=== PATIENT | female | born 1935 | race Caucasian/White ===

== ENCOUNTER 2020-07-29 19:25 | Inpatient (IN) | payer MEDICARE, OTHER ==
--- NOTE | 2020-07-29 20:53 | EDM.PDOC ---
ED HPI GENERAL MEDICAL PROBLEM - General Chief Complaint: Respiratory Problem Stated Complaint: [facility] Time Seen by Provider: 07/29/20 19:56 Source of Information: Reports: Patient, EMS History Limitations: Reports: No Limitations - History of Present Illness INITIAL COMMENTS - FREE TEXT/NARRATIVE: This is an 85-year-old female. She spent a large portion of her day writing an ambulance from [place] back to a half-way and [place]. When she arrived she was noted to have a pulse ox at 62% on 4 L nasal cannula. She was diagnosed with Covid with some patchy infiltrates in her lungs back on July 16 and [place]. She apparently had a low O2 at that time as well and she was sent to [place] for admission. She has been there now 14 days and then returned today to the half-way. She says she is exhausted and tired from riding in the ambulance all day. Apparently the half-way place her on a nonrebreather at 4 L and there was no improvement of her oxygen sats. In the ambulance her pulse ox was up to 86% on 4 L. Mouth breather but I am not certain why nasal cannula. Apparently she on 15 July was in the ER because she fell and that is when they found that she was Covid positive. She went back to the half-way but then fell again and was brought back to the ER and then transferred to [place]. The patient states she has a history of COPD. At this time she does not appear to be in acute distress though she is breathing more rapidly the rate about 18. The patient denies any significant pain or discomfort. - Related Data Allergies Allergy/AdvReac Type Severity Reaction Status Date / Time morphine Allergy Severe Vomiting Verified 07/29/20 19:41 Home Meds: Home Meds rOPINIRole [Requip] 2 mg PO BID 08/15/19 [History] Acetaminophen 650 mg PO Q6H PRN 07/29/20 [History] Anoro Ellipta 1 puff INH DAILY 07/29/20 [History] Ascorbic Acid [C-1000] 1,000 mg PO BID 07/29/20 [History] Aspirin 81 mg PO DAILY 07/29/20 [History] Cholecalciferol (Vitamin D3) [Vitamin D3] 1,000 unit PO DAILY 07/29/20 [History] Digoxin 125 mcg PO DAILY 07/29/20 [History] Metoprolol Succinate [Toprol XL] 12.5 mg PO DAILY 07/29/20 [History] Nicotine [Nicotine Patch] 21 mg TD DAILY 07/29/20 [History] atorvaSTATin [Lipitor] 40 mg PO DAILY 07/29/20 [History] lisinopriL [Lisinopril] 10 mg PO DAILY 07/29/20 [History] Past Medical History - Past Health History Medical/Surgical History: Denies Medical/Surgical History HEENT History: Reports: Impaired Vision, Other (See Below) Other HEENT History: wears glasses Cardiovascular History: Reports: Hypertension, Other (See Below) Other Cardiovascular History: elevated heart rate Respiratory History: Reports: Bronchitis, Recurrent, COPD, SOB Gastrointestinal History: Reports: None Genitourinary History: Reports: None [employer]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: Musculoskeletal History: Reports: Osteoarthritis Neurological History: Reports: None Endocrine/Metabolic History: Reports: None Oncologic (Cancer) History: Reports: None Dermatologic History: Reports: None - Infectious Disease History Infectious Disease History: Reports: [id number] Enterobacteriaceae, Measles, Shingles - Past Surgical History HEENT Surgical History: Reports: None Cardiovascular Surgical History: Reports: None Respiratory Surgical History: Reports: None GI Surgical History: Reports: Cholecystectomy, Colonoscopy, Polypectomy Female Surgical History: Reports: Hysterectomy, Salpingo-Oophorectomy Endocrine Surgical History: Reports: None Musculoskeletal Surgical History: Reports: Hip Replacement, Knee Replacement Other Musculoskeletal Surgeries/Procedures:: bilateral hip replacement, left kne e replacement Social & Family History - Family History Family Medical History: No Pertinent Family History - Tobacco Use Tobacco Use Status *Q: Former Tobacco User Used Tobacco, but Quit: Yes Month/Year Tobacco Last Used: 3 yr - Caffeine Use Caffeine Use: Reports: Coffee, Soda Caffeine Use Comment: 3-4 cups a day - Recreational Drug Use Recreational Drug Use: No ED ROS GENERAL - Review of Systems Review Of Systems: See Below Constitutional: Reports: Fever, Chills, Weakness, Fatigue HEENT: Reports: No Symptoms Respiratory: Reports: Shortness of Breath. Denies: Wheezing, Cough Cardiovascular: Denies: Chest Pain Endocrine: Reports: No Symptoms GI/Abdominal: Reports: No Symptoms : Reports: No Symptoms Musculoskeletal: Reports: No Symptoms Skin: Reports: Bruising, Other (Patient has bruising on her arms from her admission but then she has a very large dark bruising and hematoma on her right flank where she fell) Neurological: Reports: Difficulty Walking, Weakness Psychiatric: Reports: Other (Confusion but she knows she is in the ER.) Hematologic/Lymphatic: Reports: No Symptoms ED EXAM, GENERAL - Physical Exam Exam: See Below General Appearance: Alert, Thin, Other (She is not in distress but she is breathing rapidly) Eye Exam: Bilateral Eye: Normal Inspection Ears: Normal External Exam, Normal Canal, Normal TMs Nose: Normal Inspection Throat/Mouth: Normal Voice, No Airway Compromise, Other (Patient is able to verbalize and she is breathing well. She does have dry mucous membranes noted) Head: Normocephalic Neck: Other (Emitted range of motion of her neck secondary to arthritis) Respiratory/Chest: Lungs Clear, Normal Breath Sounds, Respiratory Distress, Other (He does not really have any significant rhonchi wheezes or rales noted her lungs are essentially clear and she is moving air well) Cardiovascular: No Murmur, Irregularly Irregular GI/Abdominal: Soft, Non-Tender Back Exam: Decreased Range of Motion, Other (Of her back is atraumatic. But on the right flank she is got a large hematoma and very dark bruising from where she fell) Extremities: Other (Is very thin and she moves all 4 extremities okay. She does not have significant edema in her lower extremities though it is trace her skin is very poor turgor) Neurological: Alert, Other (The patient know she is in the ER but she is not oriented much more than that) Psychiatric: Depressed Mood, Flat Affect Skin Exam: Warm, Dry #1 Interpretation EKG Date: 07/29/20 Time: 19:50 EKG Interpretation Comments: EKG shows an atrial fibrillation with a rate of 86. She has no acute ST or T wave changes and she has a no ischemia noted. Course - Vital Signs Last Recorded V/S: Last Vital Signs Temp 97.8 F 07/29/20 19:46 Pulse 89 07/29/20 19:46 Resp 30 H 07/29/20 19:46 BP 100/67 07/29/20 19:46 Pulse Ox 87 L 07/29/20 19:46 - Orders/Labs/Meds Orders: Active Orders 24 hr Category Date Time Status EKG 12 Lead [EKG Documentation Completion] [RC] ROUTINE Care 07/29/20 19:48 Active CXR [Chest 1V Frontal] [CR] Stat Exams 07/29/20 21:08 Taken Sodium Chloride 0.9% [Normal Saline] 1,000 ml Med 07/29/20 21:15 Active IV ASDIRECTED Medication Orders Sodium Chloride (Normal Saline) 1,000 mls @ 500 mls/hr IV ASDIRECTED EMELINA Last Admin: 07/29/20 21:20 Dose: 500 mls/hr Documented by: JEMAL Labs: Laboratory Tests 07/29/20 07/29/20 07/29/20 Range/Units 19:40 19:40 19:40 WBC 6.95 (3.98-10.04) K/mm3 RBC 2.78 L (3.98-5.22) M/mm3 Hgb 8.0 L (11.2-15.7) gm/dl Hct 26.6 L (34.1-44.9) % MCV 95.7 H (79.4-94.8) fl MCH 28.8 (25.6-32.2) pg MCHC 30.1 L (32.2-35.5) g/dl RDW Std Deviation 49.8 H (36.4-46.3) fL Plt Count 131 L (182-369) K/mm3 MPV 12.4 H (9.4-12.3) fl Neut % (Auto) 91.0 H (34.0-71.1) % Lymph % (Auto) 4.9 L (19.3-51.7) % [place] % (Auto) 3.9 L (4.7-12.5) % Eos % (Auto) 0.1 L (0.7-5.8) Baso % (Auto) 0.0 L (0.1-1.2) % Neut # (Auto) 6.32 H (1.56-6.13) K/mm3 Lymph # (Auto) 0.34 L (1.18-3.74) K/mm3 [place] # (Auto) 0.27 (0.24-0.36) K/mm3 Eos # (Auto) 0.01 L (0.04-0.36) K/mm3 Baso # (Auto) 0.00 L (0.01-0.08) K/mm3 Manual Slide Review Abnormal smear Puncture Site ABG pH (7.35-7.45) ABG pCO2 (35.0-45.0) mmHg ABG pO2 (80.0-100.0) mmHg ABG HCO3 (22.0-26.0) meq/L ABG O2 Saturation (96.0-97.0) % ABG Base Excess (-2-2.0) Aidan Test O2 Delivery Device Oxygen Flow Rate Sodium 139 (136-145) mEq/L Potassium 4.1 (3.5-5.1) mEq/L Chloride 105 (98-107) mEq/L Carbon Dioxide 27 (21-32) mEq/L Anion Gap 11.1 (5-15) BUN 23 H (7-18) mg/dL Creatinine 0.8 (0.55-1.02) mg/dL Est Cr Clr Drug Dosing 49.09 mL/min Estimated GFR (MDRD) > 60 (>60) mL/min BUN/Creatinine Ratio 28.8 H (14-18) Glucose 102 (83-115) mg/dL Lactic Acid (0.4-2.0) mmol/L Calcium 7.9 L (8.5-10.1) mg/dL Ferritin 682 H (8-252) ng/ml Total Bilirubin 1.4 H (0.2-1.0) mg/dL AST 54 H (15-37) U/L ALT 45 (14-59) U/L Alkaline Phosphatase 54 (46-116) U/L Lactate Dehydrogenase 303 H (81-234) U/L Troponin I 0.025 (0.00-0.056) ng/mL C-Reactive Protein 28.8 H* (<1.0) mg/dL Total Protein 5.0 L (6.4-8.2) g/dl Albumin 1.7 L (3.4-5.0) g/dl Globulin 3.3 gm/dL Albumin/Globulin Ratio 0.5 L (1-2) 07/29/20 07/29/20 Range/Units 19:40 21:25 WBC (3.98-10.04) K/mm3 RBC (3.98-5.22) M/mm3 Hgb (11.2-15.7) gm/dl Hct (34.1-44.9) % MCV (79.4-94.8) fl MCH (25.6-32.2) pg MCHC (32.2-35.5) g/dl RDW Std Deviation (36.4-46.3) fL Plt Count (182-369) K/mm3 MPV (9.4-12.3) fl Neut % (Auto) (34.0-71.1) % Lymph % (Auto) (19.3-51.7) % [place] % (Auto) (4.7-12.5) % Eos % (Auto) (0.7-5.8) Baso % (Auto) (0.1-1.2) % Neut # (Auto) (1.56-6.13) K/mm3 Lymph # (Auto) (1.18-3.74) K/mm3 [place] # (Auto) (0.24-0.36) K/mm3 Eos # (Auto) (0.04-0.36) K/mm3 Baso # (Auto) (0.01-0.08) K/mm3 Manual Slide Review Puncture Site Lt radial ABG pH 7.44 (7.35-7.45) ABG pCO2 39.7 (35.0-45.0) mmHg ABG pO2 53.0 L (80.0-100.0) mmHg ABG HCO3 26.7 H (22.0-26.0) meq/L ABG O2 Saturation 83.9 L (96.0-97.0) % ABG Base Excess 2.9 H (-2-2.0) Aidan Test Positive O2 Delivery Device Simple mask Oxygen Flow Rate 8.0 Sodium (136-145) mEq/L Potassium (3.5-5.1) mEq/L Chloride (98-107) mEq/L Carbon Dioxide (21-32) mEq/L Anion Gap (5-15) BUN (7-18) mg/dL Creatinine (0.55-1.02) mg/dL Est Cr Clr Drug Dosing mL/min Estimated GFR (MDRD) (>60) mL/min BUN/Creatinine Ratio (14-18) Glucose (83-115) mg/dL Lactic Acid 0.9 (0.4-2.0) mmol/L Calcium (8.5-10.1) mg/dL Ferritin (8-252) ng/ml Total Bilirubin (0.2-1.0) mg/dL AST (15-37) U/L ALT (14-59) U/L Alkaline Phosphatase (46-116) U/L Lactate Dehydrogenase (81-234) U/L Troponin I (0.00-0.056) ng/mL C-Reactive Protein (<1.0) mg/dL Total Protein (6.4-8.2) g/dl Albumin (3.4-5.0) g/dl Globulin gm/dL Albumin/Globulin Ratio (1-2) Meds: Medications Generic Name Dose Route Start Last Admin Trade Name Freq PRN Reason Stop Dose Admin Sodium Chloride 1,000 mls @ 500 mls/hr 07/29/20 21:15 07/29/20 21:20 Normal Saline IV 500 mls/hr ASDIRECTED EMELINA Administration - Radiology Interpretation Free Text/Narrative:: Chest x-ray shows cardiomegaly with vascular congestion and bilateral pleural effusions suggesting congestive heart failure. Bilateral alveolar opacities left greater than right could be pulmonary edema versus pneumonia. - Re-Assessments/Exams Free Text/Narrative Re-Assessment/Exam: 07/29/20 21:38 Switch the patient to a mask at 4 L per nasal cannula but she cannot tolerate that over her nose and mouth so she keeps taking it off and her pulse ox keeps dropping into the low 60s. Amount of put her back on 4 L nasal cannula. I did get a blood gas that showed a pH of 7.44 CO2 of 40 and O2 of 53. This was with a simple mask at 8 L/min. 07/29/20 21:41 Patient is a DNR/DNI 07/29/20 21:45 Her CBC shows a hemoglobin of 8.0 platelets of 131. She does not have a rather skewed differential with 91% segs. 07/29/20 22:08 Her C-reactive protein is 28.8 ferritin is 682 LDH is 303. Her troponin is normal her lactic acid is normal. I did speak to Dr. Clifton and he will admit the patient for further evaluation and treatment. 07/29/20 22:11 Spoke to the patient regarding the findings in her admission. She is okay to being admitted. Departure - Departure Time of Disposition: 22:09 Disposition: Admitted As Inpatient 65 Condition: Serious Clinical Impression: Real time reverse transcriptase PCR positive for COVID-19 virus, Pleural effusion, Cardiomegaly, Hypoxemia Congestive heart failure Qualifiers: Heart failure type: unspecified Heart failure chronicity: acute on chronic Qualified Code(s): I50.9 - Heart failure, unspecified - Discharge Information Sepsis Event Note (ED) - Evaluation Sepsis Screening Result: No Definite Risk - Focused Exam Vital Signs: Vital Signs Temp Pulse Resp BP Pulse Ox 07/29/20 19:46 97.8 F 89 30 H 100/67 87 L ED Communication - ED Communication Date/Time Date: 07/29/20 Time Called: 22:00 - Discussed Case With (1) Discussed Case With (1): Admitting Provider Person/s Notified (1): Luana Canseco III (He will admit for further evaluation and treatment) - My Orders Last 24 Hours: My Active Orders 07/29/20 19:48 EKG 12 Lead [EKG Documentation Completion] [RC] ROUTINE 07/29/20 21:08 CXR [Chest 1V Frontal] [CR] Stat 07/29/20 21:15 Sodium Chloride 0.9% [Normal Saline] 1,000 ml IV ASDIRECTED - Assessment/Plan Last 24 Hours: My Active Orders 07/29/20 19:48 EKG 12 Lead [EKG Documentation Completion] [RC] ROUTINE 07/29/20 21:08 CXR [Chest 1V Frontal] [CR] Stat 07/29/20 21:15 Sodium Chloride 0.9% [Normal Saline] 1,000 ml IV ASDIRECTED
[2020-07-29] MEDS ORDERED: Sodium Chloride 0.9% 1,000 ML IV SCH (21:15)
[2020-07-29] MEDS ORDERED: Acetaminophen 325 MG Tab PO PRN (23:41)
[2020-07-29] MEDS ORDERED: Ondansetron 4 MG/2 ML SDV IV PRN (23:41)
--- NOTE | 2020-07-29 23:57 | PCM.HP.2 ---
H&P History of Present Illness - General Date of Service: 07/29/20 Admit Problem/Dx: Admission Diagnosis/Problem Admission Diagnosis/Problem Hypoxia - History of Present Illness Initial Comments - Free Text/Narative: 85-year-old female who was discharged today from [facility] to a alf in [place] presents to the emergency department after arriving at [place] with a pulse ox of 62% on 4 L nasal cannula. Patient was initially diagnosed with Covid on July 15 in [place] and transferred to [facility] on the for treatment. Patient was also found to have elevated troponin and diagnosed with a non-STEMI. Patient was there for 14 days and on return to the alf she was found to be significantly hypoxemic. She was placed on a nonrebreather with no improvement and she was brought to the ER. On presentation to the emergency department patient did not appear to be in respiratory distress but had a increased respiratory rate of 18. Patient does have a history of atrial fibrillation, Hypertension, COPD, hypertension, hyperlipidemia. She is on digoxin. She does not appear to be on anticoagulation. She did have hemoglobin of 8.0 on presentation to the emergency department. - Related Data Allergies/Adverse Reactions: Allergies Allergy/AdvReac Type Severity Reaction Status Date / Time morphine Allergy Severe Vomiting Verified 07/29/20 19:41 Home Medications: Home Meds rOPINIRole [Requip] 2 mg PO BID 08/15/19 [History] Acetaminophen 650 mg PO Q6H PRN 07/29/20 [History] Anoro Ellipta 1 puff INH DAILY 07/29/20 [History] Ascorbic Acid [C-1000] 1,000 mg PO BID 07/29/20 [History] Aspirin 81 mg PO DAILY 07/29/20 [History] Cholecalciferol (Vitamin D3) [Vitamin D3] 1,000 unit PO DAILY 07/29/20 [History] Digoxin 125 mcg PO DAILY 07/29/20 [History] Metoprolol Succinate [Toprol XL] 12.5 mg PO DAILY 07/29/20 [History] Nicotine [Nicotine Patch] 21 mg TD DAILY 07/29/20 [History] atorvaSTATin [Lipitor] 40 mg PO DAILY 07/29/20 [History] lisinopriL [Lisinopril] 10 mg PO DAILY 07/29/20 [History] Nitroglycerin [Nitrostat] 0.4 mg SL ASDIRECTED PRN 07/30/20 [History] Past Medical History - Past Health History Medical/Surgical History: Denies Medical/Surgical History HEENT History: Reports: Impaired Vision, Other (See Below) Other HEENT History: wears glasses Cardiovascular History: Reports: Hypertension, Other (See Below) Other Cardiovascular History: elevated heart rate Respiratory History: Reports: Bronchitis, Recurrent, COPD, SOB Gastrointestinal History: Reports: None Genitourinary History: Reports: None HOSPICE MUSIC THERAPY History: Reports: Musculoskeletal History: Reports: Osteoarthritis Neurological History: Reports: None Endocrine/Metabolic History: Reports: None Oncologic (Cancer) History: Reports: None Dermatologic History: Reports: None - Infectious Disease History Infectious Disease History: Reports: ROI-[id number]-[id number] Enterobacteriaceae, Measles, Shingles - Past Surgical History HEENT Surgical History: Reports: None Cardiovascular Surgical History: Reports: None Respiratory Surgical History: Reports: None GI Surgical History: Reports: Cholecystectomy, Colonoscopy, Polypectomy Female Surgical History: Reports: Hysterectomy, Salpingo-Oophorectomy Endocrine Surgical History: Reports: None Musculoskeletal Surgical History: Reports: Hip Replacement, Knee Replacement Other Musculoskeletal Surgeries/Procedures:: bilateral hip replacement, left knee replacement Social & Family History - Family History Family Medical History: No Pertinent Family History - Tobacco Use Tobacco Use Status *Q: Former Tobacco User Used Tobacco, but Quit: Yes Month/Year Tobacco Last Used: 3 yr - Caffeine Use Caffeine Use: Reports: Coffee, Soda Caffeine Use Comment: 3-4 cups a day - Recreational Drug Use Recreational Drug Use: No H&P Review of Systems - Review of Systems: Review Of Systems: Comprehensive ROS is negative, except as noted in HPI. Exam - Exam Exam: See Below - Vital Signs Vital Signs: Last Vital Signs Temp 97.8 F 07/29/20 19:46 Pulse 89 07/29/20 19:46 Resp 30 H 07/29/20 19:46 BP 100/67 07/29/20 19:46 Pulse Ox 87 L 07/29/20 19:46 Weight: 150 lb - Exam Quality Assessment: Supplemental Oxygen (Simple mask) General: Alert, Mild Distress HEENT: Conjunctiva Clear, Mucosa Moist & [place] Neck: Supple, Trachea Midline, 2 Lungs: Rales (Throughout). No: Normal Respiratory Effort (Increased respiratory rate and effort) Cardiovascular: Regular Rate, Regular Rhythm GI/Abdominal Exam: Normal Bowel Sounds, Soft, Non-Tender, No Distention Extremities: Normal Inspection, Normal Capillary Refill, Pedal Edema (2+) Peripheral Pulses: 2+: Posterior Tibial (L), Posterior Tibial (R), Dorsalis Pedis (L), Dorsalis Pedis (R) Skin: Warm, Dry, Intact Neuro Extensive - Mental Status: Alert, Oriented x3, Normal Mood/Affect Psychiatric: Alert, Normal Affect, Normal Mood - Patient Data Lab Results Last 24 hrs: Laboratory Results - last 24 hr 07/29/20 07/29/20 07/29/20 Range/Units 19:40 19:40 19:40 WBC 6.95 (3.98-10.04) K/mm3 RBC 2.78 L (3.98-5.22) M/mm3 Hgb 8.0 L (11.2-15.7) gm/dl Hct 26.6 L (34.1-44.9) % MCV 95.7 H (79.4-94.8) fl MCH 28.8 (25.6-32.2) pg MCHC 30.1 L (32.2-35.5) g/dl RDW Std Deviation 49.8 H (36.4-46.3) fL Plt Count 131 L (182-369) K/mm3 MPV 12.4 H (9.4-12.3) fl Neut % (Auto) 91.0 H (34.0-71.1) % Lymph % (Auto) 4.9 L (19.3-51.7) % [place] % (Auto) 3.9 L (4.7-12.5) % Eos % (Auto) 0.1 L (0.7-5.8) Baso % (Auto) 0.0 L (0.1-1.2) % Neut # (Auto) 6.32 H (1.56-6.13) K/mm3 Lymph # (Auto) 0.34 L (1.18-3.74) K/mm3 [place] # (Auto) 0.27 (0.24-0.36) K/mm3 Eos # (Auto) 0.01 L (0.04-0.36) K/mm3 Baso # (Auto) 0.00 L (0.01-0.08) K/mm3 Manual Slide Review Abnormal smear Puncture Site ABG pH (7.35-7.45) ABG pCO2 (35.0-45.0) mmHg ABG pO2 (80.0-100.0) mmHg ABG HCO3 (22.0-26.0) meq/L ABG O2 Saturation (96.0-97.0) % ABG Base Excess (-2-2.0) Aidan Test O2 Delivery Device Oxygen Flow Rate Sodium 139 (136-145) mEq/L Potassium 4.1 (3.5-5.1) mEq/L Chloride 105 (98-107) mEq/L Carbon Dioxide 27 (21-32) mEq/L Anion Gap 11.1 (5-15) BUN 23 H (7-18) mg/dL Creatinine 0.8 (0.55-1.02) mg/dL Est Cr Clr Drug Dosing 49.09 mL/min Estimated GFR (MDRD) > 60 (>60) mL/min BUN/Creatinine Ratio 28.8 H (14-18) Glucose 102 (83-115) mg/dL Lactic Acid (0.4-2.0) mmol/L Calcium 7.9 L (8.5-10.1) mg/dL Ferritin 682 H (8-252) ng/ml Total Bilirubin 1.4 H (0.2-1.0) mg/dL AST 54 H (15-37) U/L ALT 45 (14-59) U/L Alkaline Phosphatase 54 (46-116) U/L Lactate Dehydrogenase 303 H (81-234) U/L Troponin I 0.025 (0.00-0.056) ng/mL C-Reactive Protein 28.8 H* (<1.0) mg/dL Total Protein 5.0 L (6.4-8.2) g/dl Albumin 1.7 L (3.4-5.0) g/dl Globulin 3.3 gm/dL Albumin/Globulin Ratio 0.5 L (1-2) 07/29/20 07/29/20 Range/Units 19:40 21:25 WBC (3.98-10.04) K/mm3 RBC (3.98-5.22) M/mm3 Hgb (11.2-15.7) gm/dl Hct (34.1-44.9) % MCV (79.4-94.8) fl MCH (25.6-32.2) pg MCHC (32.2-35.5) g/dl RDW Std Deviation (36.4-46.3) fL Plt Count (182-369) K/mm3 MPV (9.4-12.3) fl Neut % (Auto) (34.0-71.1) % Lymph % (Auto) (19.3-51.7) % [place] % (Auto) (4.7-12.5) % Eos % (Auto) (0.7-5.8) Baso % (Auto) (0.1-1.2) % Neut # (Auto) (1.56-6.13) K/mm3 Lymph # (Auto) (1.18-3.74) K/mm3 [place]rack[place] # (Auto) (0.24-0.36) K/mm3 Eos # (Auto) (0.04-0.36) K/mm3 Baso # (Auto) (0.01-0.08) K/mm3 Manual Slide Review Puncture Site Lt radial ABG pH 7.44 (7.35-7.45) ABG pCO2 39.7 (35.0-45.0) mmHg ABG pO2 53.0 L (80.0-100.0) mmHg ABG HCO3 26.7 H (22.0-26.0) meq/L ABG O2 Saturation 83.9 L (96.0-97.0) % ABG Base Excess 2.9 H (-2-2.0) Aidan Test Positive O2 Delivery Device Simple mask Oxygen Flow Rate 8.0 Sodium (136-145) mEq/L Potassium (3.5-5.1) mEq/L Chloride (98-107) mEq/L Carbon Dioxide (21-32) mEq/L Anion Gap (5-15) BUN (7-18) mg/dL Creatinine (0.55-1.02) mg/dL Est Cr Clr Drug Dosing mL/min Estimated GFR (MDRD) (>60) mL/min BUN/Creatinine Ratio (14-18) Glucose (83-115) mg/dL Lactic Acid 0.9 (0.4-2.0) mmol/L Calcium (8.5-10.1) mg/dL Ferritin (8-252) ng/ml Total Bilirubin (0.2-1.0) mg/dL AST (15-37) U/L ALT (14-59) U/L Alkaline Phosphatase (46-116) U/L Lactate Dehydrogenase (81-234) U/L Troponin I (0.00-0.056) ng/mL C-Reactive Protein (<1.0) mg/dL Total Protein (6.4-8.2) g/dl Albumin (3.4-5.0) g/dl Globulin gm/dL Albumin/Globulin Ratio (1-2) Result Diagrams: 07/30/20 06:20 07/29/20 19:40 Imaging Impressions Last 24 hrs: Chest x-ray: 1. Cardiomegaly with vascular congestion and bilateral pleural effusions suggesting CHF/fluid overload. 2. There are bilateral E VOR opacities in left greater than right, which are nonspecific and could be due to pulmonary edema versus pneumonia. #1 Interpretation EKG Date: 07/29/20 Time: 19:45 Rhythm: A-Fib Rate (Beats/Min): 86 [place]: Normal P-Wave: Absent QT: Prolonged (529) Sepsis Event Note - Evaluation Sepsis Screening Result: No Definite Risk - Focused Exam Vital Signs: Vital Signs Temp Pulse Resp BP Pulse Ox 07/29/20 19:46 97.8 F 89 30 H 100/67 87 L - Problem List (1) Congestive heart failure SNOMED Code(s): 51776086 ICD Code: I50.9 - HEART FAILURE, UNSPECIFIED Status: Acute Current Visit: Yes Qualifiers: Heart failure type: unspecified Heart failure chronicity: acute on chronic Qualified Code(s): I50.9 - Heart failure, unspecified (2) Hypoxemia SNOMED Code(s): 615227483 ICD Code: R09.02 - HYPOXEMIA Status: Acute Current Visit: Yes (3) Pleural effusion SNOMED Code(s): 94033516 ICD Code: J90 - PLEURAL EFFUSION, NOT ELSEWHERE CLASSIFIED Status: Acute Current Visit: Yes (4) COVID-19 virus detected SNOMED Code(s): 4936983093539494 ICD Code: U07.1 - COVID-19 Status: Acute Current Visit: No (5) Anemia SNOMED Code(s): 170114266 ICD Code: D64.9 - ANEMIA, UNSPECIFIED Status: Acute Current Visit: Yes (6) Prolonged Q-T interval on ECG SNOMED Code(s): 356368721 ICD Code: R94.31 - ABNORMAL ELECTROCARDIOGRAM [ECG] [EKG] Status: Acute Current Visit: Yes Problem List Initiated/Reviewed/Updated: Yes Orders Last 24hrs: Active Orders 24 hr Category Date Time Status Patient Status [ADT] Routine ADT 07/29/20 22:43 Active Antiembolic Devices [RC] PER UNIT ROUTINE Care 07/29/20 23:42 Ordered Bedrest Bedside Commode [RC] ASDIRECTED Care 07/29/20 23:41 Ordered EKG 12 Lead [EKG Documentation Completion] [RC] ROUTINE Care 07/29/20 19:48 Active Fernandes Catheter Insertion [Insert Urinary Catheter] [OM. Care 07/29/20 23:50 Ordered PC] Q24H Oxygen Therapy [RC] PRN Care 07/29/20 23:41 Ordered Pulse Oximetry [RC] CONTINUOUS Care 07/29/20 23:42 Ordered Urinary Catheter Assessment [RC] ASDIRECTED Care 07/29/20 23:50 Ordered VTE/DVT Education [RC] PER UNIT ROUTINE Care 07/29/20 23:41 Ordered Vital Signs [RC] Q4H Care 07/29/20 23:41 Ordered Heart Healthy Diet [DIET] Diet 07/30/20 Breakfast Ordered CXR [Chest 1V Frontal] [CR] Stat Exams 07/29/20 21:08 Taken CBC WITH AUTO DIFF [HEME] AM Lab 07/30/20 05:11 Ordered D Dimer [D-DIMER QUANTITATIVE] [COAG] Stat Lab 07/29/20 23:36 Ordered DIGOXIN [CHEM] AM Lab 07/30/20 05:11 Ordered OCCULT BLOOD SCREEN [OP] Routine Lab 07/29/20 23:49 Ordered PRO B-TYPE NATRIUR PEPT,BNPPRO [CHEM] Stat Lab 07/29/20 23:36 Ordered PROCALCITONIN [REF] Routine Lab 07/29/20 23:37 Ordered Acetaminophen [TylenoL] Med 07/29/20 23:41 Ordered 650 mg PO Q4H PRN Anoro Ellipta Med 07/30/20 09:00 Ordered 1 puff INH DAILY Digoxin [Lanoxin] Med 07/30/20 09:00 Ordered 125 mcg PO DAILY Metoprolol Succinate [Toprol XL] Med 07/30/20 09:00 Ordered 12.5 mg PO DAILY Nicotine [Habitrol] Med 07/30/20 09:00 Ordered 21 mg TRDERM DAILY Ondansetron [Zofran] Med 07/29/20 23:41 Ordered 4 mg IV Q4H PRN Remove Patch Med 07/30/20 09:00 Active 1 ea TRDERM DAILY Sodium Chloride 0.9% [Normal Saline] 1,000 ml Med 07/29/20 21:15 Active IV ASDIRECTED atorvaSTATin Med 07/30/20 09:00 Ordered 40 mg PO DAILY lisinopriL [Prinivil] Med 07/30/20 09:00 Ordered 10 mg PO DAILY Sequential Compression Device [OM.PC] Per Unit Routine Oth 07/29/20 23:42 Ordered Resuscitation Status Routine Resus Stat 07/29/20 23:41 Ordered Medication Orders Acetaminophen (Tylenol) 650 mg PO Q4H PRN PRN Reason: Pain (Mild 1-3)/fever Digoxin (Lanoxin) 125 mcg PO DAILY EMELINA Sodium Chloride (Normal Saline) 1,000 mls @ 500 mls/hr IV ASDIRECTED EMELINA Last Admin: 07/29/20 21:20 Dose: 500 mls/hr Documented by: JEMAL Lisinopril (Prinivil) 10 mg PO DAILY EMELINA Metoprolol Succinate (Toprol Xl) 12.5 mg PO DAILY [facility] Miscellaneous Information (Remove Patch) 1 ea TRDERM DAILY EMELINA Nicotine (Habitrol) 21 mg TRDERM DAILY EMELINA Non-Formulary Medication (Atorvastatin) 40 mg PO DAILY EMELINA Non-Formulary Medication (Anoro Ellipta) 1 puff INH DAILY EMELINA Ondansetron HCl (Zofran) 4 mg IV Q4H PRN PRN Reason: Nausea/Vomiting Assessment/Plan Comment:: Assessment 85-year-old female discharged today from [facility] after being treated for COVID-19 presents to the emergency department with hypoxemia. Exacerbation of CHF Non-STEMI * Patient has significant vascular congestion and bilateral pleural effusions on chest x-ray. It appears that this is most likely the cause of her hypoxemia although continued lung disease secondary to COVID-19 or even pneumonia is possible to be contributing to her hypoxemia. * In the emergency department she did not keep her nasal cannula or her simple mask on her face and had repeated desaturations. * She was switched to high flow nasal cannula with good results. * She also had elevated troponin and was felt to have non-STEMI or type II NM. * Troponin here was normal at 0.025. Atrial fibrillation * She is rate controlled on metoprolol and digoxin * She is not on any anticoagulation * Hemoglobin is low at 8.0 which is significantly lower than when she was in the emergency department On the and . Hemoglobin on the was 14.3 * Review of what records we have from [place] does not mention anemia nor a GI bleed. Also patient was only sent home on aspirin for anticoagulation COPD * On Anoro * This will increase her risk for complications secondary to COVID-19 Anemia * Significant drop in hemoglobin over the last 2 weeks from 14-8 * Unknown if this is secondary to blood draws, bone marrow suppression secondary to acute illness, or GI bleed * Patient is not on an anticoagulant other than aspirin for her A. fib. Plan * Admit to medical floor on telemetry and continuous pulse ox * FiO2 to keep SPO2 between 88 and 94%. Currently on high flow nasal cannula. * Follow hemoglobin * Hold on anticoagulation at this time until we trend hemoglobin. * Get stool for occult blood * Lasix 20 mg IV now and as needed depending on improvement in symptoms * No benefit from COVID-19 treatment at this time. * Antibiotics do not appear to be warranted at this time * Monitor labs and temperature. * Recheck chest x-ray in a couple days. * Get proBNP * Digoxin level in the morning * I spoke with her [id number] in regards to her prognosis. She has a very poor prognosis with her underlying medical conditions and her severe hypoxemia. She recently agreed to a DNR and DNI. I asked her directly and she reiterated that she did not want to be intubated or resuscitated. * CODE STATUS DNR/DNI * VTE prophylaxis with compression devices. Reevaluate tomorrow. - Mortality Measure Prognosis:: Poor
[2020-07-30] MEDS ORDERED: Furosemide 20 MG/2 ML VIAL IVPUSH ONE ×3 (00:15→19:51)
[2020-07-30] MEDS: Tiotropium BR/Olodaterol HCL 4 GM Inhalation Spray 2.5mcg/1 dose; 10 doses INH SCH ×2 (03:12→07:56)
[2020-07-30] MEDS: Metoprolol Succinate 25 MG Tab.ER PO SCH (08:33)
[2020-07-30] MEDS: Rosuvastatin 10 MG Tab PO SCH (08:33)
[2020-07-30] MEDS: Digoxin 125 MCG Tab PO SCH (08:37)
[2020-07-30] MEDS: Lisinopril 10 MG Tab PO SCH (08:38)
[2020-07-30] MEDS: Nicotine 21 MG/24 Hr Patch TRDERM SCH (08:39)
[2020-07-30] MEDS ORDERED: ANORO ELLIPTA INH SCH (09:00)
[2020-07-30] MEDS ORDERED: Non-Formulary Medication 1 Each (Atorvastatin 40 MG) PO SCH (09:00)
[2020-07-30] MEDS ORDERED: Nitroglycerin 0.4 MG Tab.SL SL PRN (11:28)
[2020-07-30] MEDS ORDERED: Enoxaparin 40 MG/0.4 ML Syringe SUBCUT SCH ×2 (16:30→18:00)
--- NOTE | 2020-07-30 17:53 | PCM.PN ---
- General Info Date of Service: 07/30/20 Admission Dx/Problem (Free Text): Admission Diagnosis/Problem Admission Diagnosis/Problem Hypoxia Subjective Update: Patient states she is feeling better today. She continues to be fatigued and has only a small appetite. Functional Status: Reports: Pain Controlled - Review of Systems General: Reports: No Symptoms HEENT: Reports: No Symptoms Pulmonary: Reports: Shortness of Breath Cardiovascular: Reports: No Symptoms Gastrointestinal: Reports: No Symptoms Musculoskeletal: Reports: No Symptoms - Patient Data Vitals - Most Recent: Last Vital Signs Temp 98.2 F 07/30/20 16:22 Pulse 103 H 07/30/20 16:22 Resp 34 H 07/30/20 16:22 BP 102/69 07/30/20 16:22 Pulse Ox 95 07/30/20 16:22 Weight - Most Recent: 150 lb I&O - Last 24 Hours: Intake & Output 07/30/20 07/30/20 07/30/20 06:59 14:59 22:59 Intake Total 480 700 120 Output Total 1050 275 400 Balance -570 425 -280 Lab Results Last 24 Hours: Laboratory Results - last 24 hr 07/29/20 07/29/20 07/29/20 Range/Units 19:40 19:40 19:40 WBC 6.95 (3.98-10.04) K/mm3 RBC 2.78 L (3.98-5.22) M/mm3 Hgb 8.0 L (11.2-15.7) gm/dl Hct 26.6 L (34.1-44.9) % MCV 95.7 H (79.4-94.8) fl MCH 28.8 (25.6-32.2) pg MCHC 30.1 L (32.2-35.5) g/dl RDW Std Deviation 49.8 H (36.4-46.3) fL Plt Count 131 L (182-369) K/mm3 MPV 12.4 H (9.4-12.3) fl Neut % (Auto) 91.0 H (34.0-71.1) % Lymph % (Auto) 4.9 L (19.3-51.7) % Potter % (Auto) 3.9 L (4.7-12.5) % Eos % (Auto) 0.1 L (0.7-5.8) Baso % (Auto) 0.0 L (0.1-1.2) % Neut # (Auto) 6.32 H (1.56-6.13) K/mm3 Lymph # (Auto) 0.34 L (1.18-3.74) K/mm3 Potter # (Auto) 0.27 (0.24-0.36) K/mm3 Eos # (Auto) 0.01 L (0.04-0.36) K/mm3 Baso # (Auto) 0.00 L (0.01-0.08) K/mm3 Manual Slide Review Abnormal smear D-Dimer, Quantitative (0.19-0.50) mg/L Puncture Site ABG pH (7.35-7.45) ABG pCO2 (35.0-45.0) mmHg ABG pO2 (80.0-100.0) mmHg ABG HCO3 (22.0-26.0) meq/L ABG O2 Saturation (96.0-97.0) % ABG Base Excess (-2-2.0) Aidan Test O2 Delivery Device Oxygen Flow Rate Sodium 139 (136-145) mEq/L Potassium 4.1 (3.5-5.1) mEq/L Chloride 105 (98-107) mEq/L Carbon Dioxide 27 (21-32) mEq/L Anion Gap 11.1 (5-15) BUN 23 H (7-18) mg/dL Creatinine 0.8 (0.55-1.02) mg/dL Est Cr Clr Drug Dosing 49.09 mL/min Estimated GFR (MDRD) > 60 (>60) mL/min BUN/Creatinine Ratio 28.8 H (14-18) Glucose 102 (83-115) mg/dL Lactic Acid (0.4-2.0) mmol/L Calcium 7.9 L (8.5-10.1) mg/dL Ferritin 682 H (8-252) ng/ml Total Bilirubin 1.4 H (0.2-1.0) mg/dL AST 54 H (15-37) U/L ALT 45 (14-59) U/L Alkaline Phosphatase 54 (46-116) U/L Lactate Dehydrogenase 303 H (81-234) U/L Troponin I 0.025 (0.00-0.056) ng/mL C-Reactive Protein 28.8 H* (<1.0) mg/dL NT-Pro-B Natriuret Pep (0-450) pg/mL Total Protein 5.0 L (6.4-8.2) g/dl Albumin 1.7 L (3.4-5.0) g/dl Globulin 3.3 gm/dL Albumin/Globulin Ratio 0.5 L (1-2) Digoxin (0.9-2.0) ng/mL MRSA (PCR) 07/29/20 07/29/20 07/30/20 Range/Units 19:40 21:25 00:14 WBC (3.98-10.04) K/mm3 RBC (3.98-5.22) M/mm3 Hgb (11.2-15.7) gm/dl Hct (34.1-44.9) % MCV (79.4-94.8) fl MCH (25.6-32.2) pg MCHC (32.2-35.5) g/dl RDW Std Deviation (36.4-46.3) fL Plt Count (182-369) K/mm3 MPV (9.4-12.3) fl Neut % (Auto) (34.0-71.1) % Lymph % (Auto) (19.3-51.7) % Potter % (Auto) (4.7-12.5) % Eos % (Auto) (0.7-5.8) Baso % (Auto) (0.1-1.2) % Neut # (Auto) (1.56-6.13) K/mm3 Lymph # (Auto) (1.18-3.74) K/mm3 Potter # (Auto) (0.24-0.36) K/mm3 Eos # (Auto) (0.04-0.36) K/mm3 Baso # (Auto) (0.01-0.08) K/mm3 Manual Slide Review D-Dimer, Quantitative 2.20 H (0.19-0.50) mg/L Puncture Site Lt radial ABG pH 7.44 (7.35-7.45) ABG pCO2 39.7 (35.0-45.0) mmHg ABG pO2 53.0 L (80.0-100.0) mmHg ABG HCO3 26.7 H (22.0-26.0) meq/L ABG O2 Saturation 83.9 L (96.0-97.0) % ABG Base Excess 2.9 H (-2-2.0) Aidan Test Positive O2 Delivery Device Simple mask Oxygen Flow Rate 8.0 Sodium (136-145) mEq/L Potassium (3.5-5.1) mEq/L Chloride (98-107) mEq/L Carbon Dioxide (21-32) mEq/L Anion Gap (5-15) BUN (7-18) mg/dL Creatinine (0.55-1.02) mg/dL Est Cr Clr Drug Dosing mL/min Estimated GFR (MDRD) (>60) mL/min BUN/Creatinine Ratio (14-18) Glucose (83-115) mg/dL Lactic Acid 0.9 (0.4-2.0) mmol/L Calcium (8.5-10.1) mg/dL Ferritin (8-252) ng/ml Total Bilirubin (0.2-1.0) mg/dL AST (15-37) U/L ALT (14-59) U/L Alkaline Phosphatase (46-116) U/L Lactate Dehydrogenase (81-234) U/L Troponin I (0.00-0.056) ng/mL C-Reactive Protein (<1.0) mg/dL NT-Pro-B Natriuret Pep (0-450) pg/mL Total Protein (6.4-8.2) g/dl Albumin (3.4-5.0) g/dl Globulin gm/dL Albumin/Globulin Ratio (1-2) Digoxin (0.9-2.0) ng/mL MRSA (PCR) 07/30/20 07/30/20 07/30/20 Range/Units 00:14 02:15 06:20 WBC 5.88 (3.98-10.04) K/mm3 RBC 2.85 L (3.98-5.22) M/mm3 Hgb 8.2 L (11.2-15.7) gm/dl Hct 27.4 L (34.1-44.9) % MCV 96.1 H (79.4-94.8) fl MCH 28.8 (25.6-32.2) pg MCHC 29.9 L (32.2-35.5) g/dl RDW Std Deviation 50.8 H (36.4-46.3) fL Plt Count 135 L (182-369) K/mm3 MPV 11.5 (9.4-12.3) fl Neut % (Auto) 90.3 H (34.0-71.1) % Lymph % (Auto) 6.5 L (19.3-51.7) % Potter % (Auto) 2.7 L (4.7-12.5) % Eos % (Auto) 0.2 L (0.7-5.8) Baso % (Auto) 0.0 L (0.1-1.2) % Neut # (Auto) 5.31 (1.56-6.13) K/mm3 Lymph # (Auto) 0.38 L (1.18-3.74) K/mm3 Potter # (Auto) 0.16 L (0.24-0.36) K/mm3 Eos # (Auto) 0.01 L (0.04-0.36) K/mm3 Baso # (Auto) 0.00 L (0.01-0.08) K/mm3 Manual Slide Review Abnormal smear D-Dimer, Quantitative (0.19-0.50) mg/L Puncture Site ABG pH (7.35-7.45) ABG pCO2 (35.0-45.0) mmHg ABG pO2 (80.0-100.0) mmHg ABG HCO3 (22.0-26.0) meq/L ABG O2 Saturation (96.0-97.0) % ABG Base Excess (-2-2.0) Aidan Test O2 Delivery Device Oxygen Flow Rate Sodium (136-145) mEq/L Potassium (3.5-5.1) mEq/L Chloride (98-107) mEq/L Carbon Dioxide (21-32) mEq/L Anion Gap (5-15) BUN (7-18) mg/dL Creatinine (0.55-1.02) mg/dL Est Cr Clr Drug Dosing mL/min Estimated GFR (MDRD) (>60) mL/min BUN/Creatinine Ratio (14-18) Glucose (83-115) mg/dL Lactic Acid (0.4-2.0) mmol/L Calcium (8.5-10.1) mg/dL Ferritin (8-252) ng/ml Total Bilirubin (0.2-1.0) mg/dL AST (15-37) U/L ALT (14-59) U/L Alkaline Phosphatase (46-116) U/L Lactate Dehydrogenase (81-234) U/L Troponin I (0.00-0.056) ng/mL C-Reactive Protein (<1.0) mg/dL NT-Pro-B Natriuret Pep 2346 H (0-450) pg/mL Total Protein (6.4-8.2) g/dl Albumin (3.4-5.0) g/dl Globulin gm/dL Albumin/Globulin Ratio (1-2) Digoxin (0.9-2.0) ng/mL MRSA (PCR) Negative 07/30/20 Range/Units 06:20 WBC (3.98-10.04) K/mm3 RBC (3.98-5.22) M/mm3 Hgb (11.2-15.7) gm/dl Hct (34.1-44.9) % MCV (79.4-94.8) fl MCH (25.6-32.2) pg MCHC (32.2-35.5) g/dl RDW Std Deviation (36.4-46.3) fL Plt Count (182-369) K/mm3 MPV (9.4-12.3) fl Neut % (Auto) (34.0-71.1) % Lymph % (Auto) (19.3-51.7) % Potter % (Auto) (4.7-12.5) % Eos % (Auto) (0.7-5.8) Baso % (Auto) (0.1-1.2) % Neut # (Auto) (1.56-6.13) K/mm3 Lymph # (Auto) (1.18-3.74) K/mm3 Potter # (Auto) (0.24-0.36) K/mm3 Eos # (Auto) (0.04-0.36) K/mm3 Baso # (Auto) (0.01-0.08) K/mm3 Manual Slide Review D-Dimer, Quantitative (0.19-0.50) mg/L Puncture Site ABG pH (7.35-7.45) ABG pCO2 (35.0-45.0) mmHg ABG pO2 (80.0-100.0) mmHg ABG HCO3 (22.0-26.0) meq/L ABG O2 Saturation (96.0-97.0) % ABG Base Excess (-2-2.0) Aidan Test O2 Delivery Device Oxygen Flow Rate Sodium (136-145) mEq/L Potassium (3.5-5.1) mEq/L Chloride (98-107) mEq/L Carbon Dioxide (21-32) mEq/L Anion Gap (5-15) BUN (7-18) mg/dL Creatinine (0.55-1.02) mg/dL Est Cr Clr Drug Dosing mL/min Estimated GFR (MDRD) (>60) mL/min BUN/Creatinine Ratio (14-18) Glucose (83-115) mg/dL Lactic Acid (0.4-2.0) mmol/L Calcium (8.5-10.1) mg/dL Ferritin (8-252) ng/ml Total Bilirubin (0.2-1.0) mg/dL AST (15-37) U/L ALT (14-59) U/L Alkaline Phosphatase (46-116) U/L Lactate Dehydrogenase (81-234) U/L Troponin I (0.00-0.056) ng/mL C-Reactive Protein (<1.0) mg/dL NT-Pro-B Natriuret Pep (0-450) pg/mL Total Protein (6.4-8.2) g/dl Albumin (3.4-5.0) g/dl Globulin gm/dL Albumin/Globulin Ratio (1-2) Digoxin 0.4 L (0.9-2.0) ng/mL MRSA (PCR) Med Orders - Current: Current Medications Acetaminophen (Tylenol) 650 mg PO Q4H PRN PRN Reason: Pain (Mild 1-3)/fever Digoxin (Lanoxin) 125 mcg PO DAILY [facility] Last Admin: 07/30/20 08:37 Dose: 125 mcg Documented by: Enoxaparin Sodium (Lovenox) 40 mg SUBCUT DAILY [facility] Lisinopril (Prinivil) 10 mg PO DAILY [facility] Last Admin: 07/30/20 08:38 Dose: 10 mg Documented by: Metoprolol Succinate (Toprol Xl) 12.5 mg PO DAILY [facility] Last Admin: 11/14/20 08:33 Dose: 12.5 mg Documented by: Miscellaneous Information (Remove Patch) 1 ea TRDERM DAILY [facility] Last Admin: 07/30/20 08:39 Dose: Not Given Documented by: Nicotine (Habitrol) 21 mg TRDERM DAILY [facility] Last Admin: 07/30/20 08:39 Dose: Not Given Documented by: Nitroglycerin (Nitrostat) 0.4 mg SL ASDIRECTED PRN PRN Reason: Chest Pain Ondansetron HCl (Zofran) 4 mg IV Q4H PRN PRN Reason: Nausea/Vomiting Ropinirole HCl (Requip) 2 mg PO BID [facility] Rosuvastatin Calcium (Crestor) 10 mg PO DAILY [facility] Last Admin: 07/30/20 08:33 Dose: 10 mg Documented by: Discontinued Medications Furosemide (Lasix) 20 mg IVPUSH ONETIME ONE Stop: 07/30/20 00:16 Last Admin: 07/30/20 00:39 Dose: 20 mg Documented by: Furosemide (Lasix) 20 mg IVPUSH ONETIME ONE Stop: 07/30/20 11:30 Last Admin: 07/30/20 12:13 Dose: 20 mg Documented by: Sodium Chloride (Normal Saline) 1,000 mls @ 500 mls/hr IV ASDIRECTED [facility] Last Admin: 07/29/20 21:20 Dose: 500 mls/hr Documented by: - Exam Quality Assessment: Supplemental Oxygen (High flow nasal cannula) General: Alert, Oriented HEENT: Pupils Equal, Mucous Membr. Moist/[place] Neck: Supple Lungs: Rales (Bibasilar and midlung fieldsimproved). No: Normal Respiratory Effort (Mildly increased respiratory rate and effort) GI/Abdominal Exam: Normal Bowel Sounds, Soft, Non-Tender, No Organomegaly, No Distention, No Abnormal Bruit, No Mass Extremities: Normal Inspection, Normal Capillary Refill, Pedal Edema (1-2+) Skin: Warm, Dry, Intact Psy/Mental Status: Alert, Normal Affect, Normal Mood Sepsis Event Note - Evaluation Sepsis Screening Result: No Definite Risk - Focused Exam Vital Signs: Vital Signs Temp Pulse Resp BP BP Pulse Ox Pulse Ox 07/30/20 16:22 98.2 F 103 H 34 H 102/69 95 07/30/20 12:15 102/60 07/30/20 12:14 97.5 F 102 H 26 H 91/57 L 95 07/30/20 08:38 113/62 07/30/20 08:37 60 07/30/20 08:36 98.6 F 60 28 H 113/62 95 07/30/20 08:33 60 113/62 07/30/20 07:57 90 L - Problem List & Annotations (1) Congestive heart failure SNOMED Code(s): 55680365 Code(s): I50.9 - HEART FAILURE, UNSPECIFIED Status: Acute Current Visit: Yes Qualifiers: Heart failure type: unspecified Heart failure chronicity: acute on chronic Qualified Code(s): I50.9 - Heart failure, unspecified (2) Hypoxemia SNOMED Code(s): 167489737 Code(s): R09.02 - HYPOXEMIA Status: Acute Current Visit: Yes (3) Pleural effusion SNOMED Code(s): 04076712 Code(s): J90 - PLEURAL EFFUSION, NOT ELSEWHERE CLASSIFIED Status: Acute Current Visit: Yes (4) COVID-19 virus detected SNOMED Code(s): 8229830774057860 Code(s): U07.1 - COVID-19 Status: Acute Current Visit: No (5) Anemia SNOMED Code(s): 371619818 Code(s): D64.9 - ANEMIA, UNSPECIFIED Status: Acute Current Visit: Yes (6) Prolonged Q-T interval on ECG SNOMED Code(s): 551898856 Code(s): R94.31 - ABNORMAL ELECTROCARDIOGRAM [ECG] [EKG] Status: Acute C urrent Visit: Yes - Problem List Review Problem List Initiated/Reviewed/Updated: Yes - My Orders Last 24 Hours: My Active Orders 07/29/20 23:37 PROCALCITONIN [REF] Routine 07/29/20 23:41 Bedrest Bedside Commode [RC] ASDIRECTED Oxygen Therapy [RC] PRN VTE/DVT Education [RC] PER UNIT ROUTINE Vital Signs [RC] Q4HR Acetaminophen [TylenoL] 650 mg PO Q4H PRN Ondansetron [Zofran] 4 mg IV Q4H PRN Resuscitation Status Routine 07/29/20 23:42 Antiembolic Devices [RC] 10,22 Pulse Oximetry [RC] CONTINUOUS Sequential Compression Device [OM.PC] Per Unit Routine 07/29/20 23:49 OCCULT BLOOD SCREEN [OP] Routine 07/29/20 23:50 Fernandes Catheter Insertion [Insert Urinary Catheter] [OM.PC] Q24H Urinary Catheter Assessment [RC] 07/30/20 Breakfast Heart Healthy Diet [DIET] 07/30/20 09:00 Digoxin [Lanoxin] 125 mcg PO DAILY Metoprolol Succinate [Toprol XL] 12.5 mg PO DAILY Nicotine [Habitrol] 21 mg TRDERM DAILY Remove Patch 1 ea TRDERM DAILY Rosuvastatin [Crestor] 10 mg PO DAILY lisinopriL [Prinivil] 10 mg PO DAILY 07/30/20 11:28 Nitroglycerin [Nitrostat] 0.4 mg SL ASDIRECTED PRN 07/30/20 16:30 Enoxaparin [Lovenox] 40 mg SUBCUT DAILY 07/30/20 21:00 rOPINIRole [Requip] 2 mg PO BID 07/31/20 05:11 CBC WITH AUTO DIFF [HEME] AM CMP [COMPREHENSIVE METABOLIC PN,CMP] [CHEM] AM MAGNESIUM [CHEM] AM PHOSPHORUS [CHEM] AM - Plan Plan:: Assessment 85-year-old female discharged today from [facility] in [place] after being treated f or COVID-19 presents to the emergency department with hypoxemia. Exacerbation of CHF Non-STEMI Atrial fibrillation COPD Anemia * Valerie has improved today. She continues requiring high flow nasal cannula, but her work of breathing and auscultation is much better. * BNP was elevated at 2346 and her digoxin level was low at 0.4. Hemoglobin did increase to 8.2. D-dimer came back elevated at 2.2, but this is likely still secondary to COVID-19. * This appears to be more exacerbation of CHF than COPD or COVID-19 pneumonia. Plan * Telemetry and continuous pulse ox * FiO2 to keep SPO2 between 88 and 94%. Currently on high flow nasal cannula. * Start Lovenox 40 mg subcu daily * Get stool for occult blood -pending * Give another 20 mg IV of Lasix now and if blood pressure tolerates it this evening * Still no benefit for COVID-19 treatment at this time. * Antibiotics still do not appear to be warranted at this time * Recheck CBC, CMP, mag, Phos, D-dimer, CRP in the morning * If D-dimer is more elevated may consider CTA of the chest. * Recheck chest x-ray tomorrow. * Echocardiogram on Saturday * I spoke with her [id number] on 07/29/2020 in regards to her prognosis. She has a very poor prognosis with her underlying medical conditions and her severe hypoxemia. She recently agreed to a DNR and DNI. I asked her directly and she reiterated that she did not want to be intubated or resuscitated. * CODE STATUS DNR/DNI * VTE prophylaxis with Lovenox.
[2020-07-30] MEDS: rOPINIRole 1 MG Tab PO SCH (21:42)
[2020-07-31] MEDS: Tiotropium BR/Olodaterol HCL 4 GM Inhalation Spray 2.5mcg/1 dose; 10 doses INH SCH (08:03)
[2020-07-31] MEDS ORDERED: Iopamidol 755 Mg/ML 100 ML Bottle IVPUSH ONE (08:26)
[2020-07-31] MEDS ORDERED: Sodium Chloride 0.9% 1,000 ML IV SCH (08:30)
[2020-07-31] MEDS ORDERED: Sodium Chloride 0.9% 10 ML Syringe FLUSH PRN (08:30)
[2020-07-31] MEDS: Metoprolol Succinate 25 MG Tab.ER PO SCH (08:36)
[2020-07-31] MEDS: Digoxin 125 MCG Tab PO SCH (08:36)
[2020-07-31] MEDS: Rosuvastatin 10 MG Tab PO SCH (08:37)
[2020-07-31] MEDS: Nicotine 21 MG/24 Hr Patch TRDERM SCH (08:37)
[2020-07-31] MEDS: Lisinopril 10 MG Tab PO SCH (08:37)
[2020-07-31] MEDS: rOPINIRole 1 MG Tab PO SCH ×2 (08:37→20:31)
[2020-07-31] MEDS ORDERED: Piperacillin/Tazobactam 4.5 GM in Sodium Chloride 0.9% 100 ML IV ONE (10:49)
[2020-07-31] MEDS ORDERED: Furosemide 20 MG/2 ML VIAL IVPUSH SCH (11:00)
[2020-07-31] MEDS: Albumin 25% 12.5 GM/50 ML BAG IV SCH ×2 (12:12→16:10)
[2020-07-31] MEDS ORDERED: Furosemide 100 MG in Sodium Chloride 0.9% 90 ML IV SCH (12:45)
--- NOTE | 2020-07-31 14:40 | PCM.PN ---
- General Info Date of Service: 07/31/20 Admission Dx/Problem (Free Text): Admission Diagnosis/Problem Admission Diagnosis/Problem Hypoxia Subjective Update: Patient has had no significant improvement in symptoms, but chest x-ray appears to be worse. She continues on high flow nasal cannula at 40 L and 80% FiO2. She has poor oral intake and appetite and has not had a bowel movement to be able to test for bleeding. Patient has not been tolerating the small dose of Lasix 20 mg IV well. Her blood pressure drops to 90 systolic making it difficult to increase diuresis. Functional Status: Reports: Pain Controlled - Review of Systems General: Reports: Fatigue HEENT: Reports: No Symptoms Pulmonary: Reports: Shortness of Breath Cardiovascular: Reports: Edema Gastrointestinal: Reports: No Symptoms Musculoskeletal: Reports: No Symptoms Neurological: Reports: Confusion Psychiatric: Reports: Confusion - Patient Data Vitals - Most Recent: Last Vital Signs Temp 98.2 F 07/31/20 12:09 Pulse 85 07/31/20 12:09 Resp 20 07/31/20 12:09 BP 90/55 L 07/31/20 12:09 Pulse Ox 93 L 07/31/20 12:09 Weight - Most Recent: 148 lb 6.4 oz I&O - Last 24 Hours: Intake & Output 07/30/20 07/31/20 07/31/20 22:59 06:59 14:59 Intake Total 520 240 320 Output Total 850 600 800 Balance -330 -360 -480 Imaging Impressions - Last 24 Hours: Chest x-ray: 1. There is marked perihilar interstitial prominence consistent with volume overload or congestive heart failure. These findings have worsened since previous study. 2. Groundglass airspace disease at the lower lung piña. CT chest with contrast: 1. No evidence of pulmonary emboli. 2. Bilateral multifocal pulmonary groundglass opacities with interlobular septal thickening suggesting the "crazy paving" pattern. This pattern can be associated with acute interstitial pneumonia, adult respiratory distress syndrome, pulmonary edema, pulmonary hemorrhage, pneumonia, LVO are proteinosis, hypersensitivity pneumonitis, cryptogenic organizing pneumonia, chronic eosinophilic pneumonia, and bronchioloalveolar cell carcinoma. Lab Results Last 24 Hours: Laboratory Results - last 24 hr 07/30/20 07/31/20 07/31/20 Range/Units 00:14 06:16 06:16 WBC 4.25 (3.98-10.04) K/mm3 RBC 2.59 L (3.98-5.22) M/mm3 Hgb 7.4 L (11.2-15.7) gm/dl Hct 24.9 L (34.1-44.9) % MCV 96.1 H (79.4-94.8) fl MCH 28.6 (25.6-32.2) pg MCHC 29.7 L (32.2-35.5) g/dl RDW Std Deviation 50.6 H (36.4-46.3) fL Plt Count 126 L (182-369) K/mm3 MPV 11.1 (9.4-12.3) fl Neut % (Auto) 77.0 H (34.0-71.1) % Lymph % (Auto) 16.5 L (19.3-51.7) % Beckham % (Auto) 5.4 (4.7-12.5) % Eos % (Auto) 0.7 (0.7-5.8) Baso % (Auto) 0.2 (0.1-1.2) % Neut # (Auto) 3.27 (1.56-6.13) K/mm3 Lymph # (Auto) 0.70 L (1.18-3.74) K/mm3 Beckham # (Auto) 0.23 L (0.24-0.36) K/mm3 Eos # (Auto) 0.03 L (0.04-0.36) K/mm3 Baso # (Auto) 0.01 (0.01-0.08) K/mm3 Manual Slide Review Abnormal smear D-Dimer, Quantitative (0.19-0.50) mg/L Sodium 139 (136-145) mEq/L Potassium 4.0 (3.5-5.1) mEq/L Chloride 104 (98-107) mEq/L Carbon Dioxide 31 (21-32) mEq/L Anion Gap 8.0 (5-15) BUN 24 H (7-18) mg/dL Creatinine 0.8 (0.55-1.02) mg/dL Est Cr Clr Drug Dosing 49.09 mL/min Estimated GFR (MDRD) > 60 (>60) mL/min BUN/Creatinine Ratio 30.0 H (14-18) Glucose 87 (83-115) mg/dL Calcium 7.5 L (8.5-10.1) mg/dL Phosphorus 2.8 (2.6-4.7) mg/dL Magnesium 2.2 (1.8-2.4) mg/dl Total Bilirubin 0.9 (0.2-1.0) mg/dL AST 68 H (15-37) U/L ALT 54 (14-59) U/L Alkaline Phosphatase 50 (46-116) U/L C-Reactive Protein 20.0 H* (<1.0) mg/dL Total Protein 4.8 L (6.4-8.2) g/dl Albumin 1.5 L (3.4-5.0) g/dl Globulin 3.3 gm/dL Albumin/Globulin Ratio 0.5 L (1-2) Procalcitonin 0.61 H (<0.10) ng/mL 07/31/20 Range/Units 06:16 WBC (3.98-10.04) K/mm3 RBC (3.98-5.22) M/mm3 Hgb (11.2-15.7) gm/dl Hct (34.1-44.9) % MCV (79.4-94.8) fl MCH (25.6-32.2) pg MCHC (32.2-35.5) g/dl RDW Std Deviation (36.4-46.3) fL Plt Count (182-369) K/mm3 MPV (9.4-12.3) fl Neut % (Auto) (34.0-71.1) % Lymph % (Auto) (19.3-51.7) % Beckham % (Auto) (4.7-12.5) % Eos % (Auto) (0.7-5.8) Baso % (Auto) (0.1-1.2) % Neut # (Auto) (1.56-6.13) K/mm3 Lymph # (Auto) (1.18-3.74) K/mm3 Beckham # (Auto) (0.24-0.36) K/mm3 Eos # (Auto) (0.04-0.36) K/mm3 Baso # (Auto) (0.01-0.08) K/mm3 Manual Slide Review D-Dimer, Quantitative 4.37 H (0.19-0.50) mg/L Sodium (136-145) mEq/L Potassium (3.5-5.1) mEq/L Chloride (98-107) mEq/L Carbon Dioxide (21-32) mEq/L Anion Gap (5-15) BUN (7-18) mg/dL Creatinine (0.55-1.02) mg/dL Est Cr Clr Drug Dosing mL/min Estimated GFR (MDRD) (>60) mL/min BUN/Creatinine Ratio (14-18) Glucose (83-115) mg/dL Calcium (8.5-10.1) mg/dL Phosphorus (2.6-4.7) mg/dL Magnesium (1.8-2.4) mg/dl Total Bilirubin (0.2-1.0) mg/dL AST (15-37) U/L ALT (14-59) U/L Alkaline Phosphatase (46-116) U/L C-Reactive Protein (<1.0) mg/dL Total Protein (6.4-8.2) g/dl Albumin (3.4-5.0) g/dl Globulin gm/dL Albumin/Globulin Ratio (1-2) Procalcitonin (<0.10) ng/mL Med Orders - Current: Current Medications Acetaminophen (Tylenol) 650 mg PO Q4H PRN PRN Reason: Pain (Mild 1-3)/fever Digoxin (Lanoxin) 125 mcg PO DAILY [facility] Last Admin: 07/31/20 08:36 Dose: 125 mcg Documented by: Enoxaparin Sodium (Lovenox) 40 mg SUBCUT DAILY@1800 [facility] Last Admin: 07/30/20 18:05 Dose: 40 mg Documented by: Sodium Chloride (Normal Saline) 1,000 mls @ 75 mls/hr IV ASDIRECTED [facility] Last Admin: 07/31/20 11:26 Dose: 75 mls/hr Documented by: Albumin Human (Flexbumin 25%) 12.5 gm in 50 mls @ 100 mls/hr IV Q6H [facility] Stop: 07/31/20 17:29 Last Admin: 07/31/20 12:12 Dose: 100 mls/hr Documented by: Piperacillin Sod/Tazobactam (Sod 4.5 gm/ Sodium Chloride) 100 mls @ 25 mls/hr IV Q8H [facility] Vancomycin HCl 1 gm/ Sodium (Chloride) 250 mls @ 250 mls/hr IV Q24H [facility] Last Admin: 07/31/20 13:05 Dose: 250 mls/hr Documented by: Furosemide 100 mg/ Sodium (Chloride) 100 mls @ 4 mls/hr IV TITRATE EMELINA; Protocol Lisinopril (Prinivil) 10 mg PO DAILY [facility] Last Admin: 07/31/20 08:37 Dose: 10 mg Documented by: Metoprolol Succinate (Toprol Xl) 12.5 mg PO DAILY [facility] Last Admin: 07/31/20 08:36 Dose: 12.5 mg Documented by: Miscellaneous Information (Remove Patch) 1 ea TRDERM DAILY [facility] Last Admin: 07/31/20 08:38 Dose: Not Given Documented by: Nicotine (Habitrol) 21 mg TRDERM DAILY [facility] Last Admin: 07/31/20 08:37 Dose: Not Given Documented by: Nitroglycerin (Nitrostat) 0.4 mg SL ASDIRECTED PRN PRN Reason: Chest Pain Ondansetron HCl (Zofran) 4 mg IV Q4H PRN PRN Reason: Nausea/Vomiting Ropinirole HCl (Requip) 2 mg PO BID [facility] Last Admin: 07/31/20 08:37 Dose: 2 mg Documented by: Rosuvastatin Calcium (Crestor) 10 mg PO DAILY [facility] Last Admin: 07/31/20 08:37 Dose: 10 mg Documented by: Sodium Chloride (Saline Flush) 10 ml FLUSH ONETIME PRN PRN Reason: Keep Vein Open Last Admin: 07/31/20 09:37 Dose: 10 ml Documented by: Vancomycin HCl (Pharmacy To Dose - Vancomycin) 1 dose .XX ASDIRECTED [facility] Discontinued Medications Enoxaparin Sodium (Lovenox) 40 mg SUBCUT DAILY [facility] Last Admin: 07/30/20 18:05 Dose: Not Given Documented by: Furosemide (Lasix) 20 mg IVPUSH ONETIME ONE Stop: 07/30/20 00:16 Last Admin: 07/30/20 00:39 Dose: 20 mg Documented by: Furosemide (Lasix) 20 mg IVPUSH ONETIME ONE Stop: 07/30/20 11:30 Last Admin: 07/30/20 12:13 Dose: 20 mg Documented by: Furosemide (Lasix) 20 mg IVPUSH ONETIME ONE Stop: 07/30/20 19:52 Last Admin: 07/30/20 21:42 Dose: 20 mg Documented by: Furosemide (Lasix) 20 mg IVPUSH Q6H [facility] Stop: 07/31/20 17:01 Last Admin: 07/31/20 11:20 Dose: 20 mg Documented by: Sodium Chloride (Normal Saline) 1,000 mls @ 500 mls/hr IV ASDIRECTED [facility] Last Admin: 07/29/20 21:20 Dose: 500 mls/hr Documented by: Piperacillin Sod/Tazobactam (Sod 4.5 gm/ Sodium Chloride) 100 mls @ 200 mls/hr IV ONETIME ONE Stop: 07/31/20 11:18 Last Admin: 07/31/20 11:14 Dose: 200 mls/hr Documented by: Iopamidol (Isovue-370 (76%)) 100 ml IVPUSH ONETIME ONE Stop: 07/31/20 08:27 Last Admin: 07/31/20 09:37 Dose: 100 ml Documented by: - Exam Quality Assessment: Supplemental Oxygen (High flow nasal cannula) General: Moderate Distress, Lethargic HEENT: Pupils Equal, Mucous Membr. Moist/[place] Neck: Supple Lungs: No: Normal Respiratory Effort (Increased respiratory rate and effort) Cardiovascular: Regular Rate, Regular Rhythm GI/Abdominal Exam: Normal Bowel Sounds, Soft, Non-Tender, No Distention Extremities: Normal Inspection, Normal Capillary Refill, Pedal Edema (1+). No: Non-Tender (Mild tenderness to the lower extremities) Skin: Warm, Dry, Intact Sepsis Event Note - Evaluation Sepsis Screening Result: No Definite Risk - Focused Exam Vital Signs: Vital Signs Temp Pulse Resp BP Pulse Ox Pulse Ox 07/31/20 12:09 98.2 F 85 20 90/55 L 93 L 07/31/20 11:37 93 L 07/31/20 08:37 105/65 07/31/20 08:36 90 105/65 07/31/20 08:03 90 L 07/31/20 07:59 98.1 F 90 20 105/65 96 07/31/20 05:19 100/59 L 07/31/20 03:22 97.3 F 77 28 H 92/49 L 94 L - Problem List & Annotations (1) Congestive heart failure SNOMED Code(s): 63326679 Code(s): I50.9 - HEART FAILURE, UNSPECIFIED Status: Acute Current Visit: Yes Qualifiers: Heart failure type: unspecified Heart failure chronicity: acute on chronic Qualified Code(s): I50.9 - Heart failure, unspecified (2) Hypoxemia SNOMED Code(s): 110569066 Code(s): R09.02 - HYPOXEMIA Status: Acute Current Visit: Yes (3) Pleural effusion SNOMED Code(s): 93180310 Code(s): J90 - PLEURAL EFFUSION, NOT ELSEWHERE CLASSIFIED Status: Acute Current Visit: Yes (4) COVID-19 virus detected SNOMED Code(s): 2428360998114022 Code(s): U07.1 - COVID-19 Status: Acute Current Visit: No (5) Anemia SNOMED Code(s): 865629893 Code(s): D64.9 - ANEMIA, UNSPECIFIED Status: Acute Current Visit: Yes (6) Prolonged Q-T interval on ECG SNOMED Code(s): 814050014 Code(s): R94.31 - ABNORMAL ELECTROCARDIOGRAM [ECG] [EKG] Status: Acute Current Visit: Yes - Problem List Review Problem List Initiated/Reviewed/Updated: Yes - My Orders Last 24 Hours: My Active Orders 07/30/20 18:00 Enoxaparin [Lovenox] 40 mg SUBCUT DAILY@1800 07/30/20 21:00 rOPINIRole [Requip] 2 mg PO BID 07/31/20 07:00 CXR [Chest 1V Frontal] [CR] Routine 07/31/20 07:23 CTA Chest W WO Contrast [Ang Chest] [CT] Routine 07/31/20 08:30 Sodium Chloride 0.9% [Normal Saline] 1,000 ml IV ASDIRECTED Sodium Chloride 0.9% [Saline Flush] 10 ml FLUSH ONETIME PRN 07/31/20 10:50 Blood Culture x2 Reflex Set [OM.PC] Stat 07/31/20 11:00 Albumin 25% [Flexbumin 25%] 12.5 gm in 50 ml IV Q6H Pharmacy to Dose - Vancomycin 1 dose .XX ASDIRECTED 07/31/20 11:15 CULTURE BLOOD [BC] Stat 07/31/20 11:23 CULTURE BLOOD [BC] Stat 07/31/20 12:00 Vancomycin [Vancocin] 1 gm Sodium Chloride 0.9% [Normal Saline (AdvBag)] 250 ml IV Q24H 07/31/20 12:45 Furosemide [Lasix] 100 mg Sodium Chloride 0.9% [Normal Saline] 90 ml IV TITRATE 07/31/20 14:29 Patient Status [ADT] Routine 07/31/20 19:00 Piperacillin/Tazobactam [Piperacil-Tazobact] 4.5 gm Sodium Chloride 0.9% [Normal Saline] 100 ml IV Q8H - Plan Plan:: Assessment 85-year-old female discharged today from [facility] in [place] after being treated for COVID-19 presents to the emergency department with hypoxemia. COPD Exacerbation of CHF * Small negative fluid balance of 1215 mL since admission. * Blood pressure is unable to tolerate low-dose Lasix 20 mg IV * CT chest with contrast: * 1. No evidence of pulmonary emboli. * 2. Bilateral multifocal pulmonary groundglass opacities with interlobular septal thickening suggesting the "crazy paving" pattern. This pattern can be associated with acute interstitial pneumonia, adult respiratory distress syndrome, pulmonary edema, pulmonary hemorrhage, pneumonia, LVO are proteinosis, hypersensitivity pneumonitis, cryptogenic organizing pneumonia, chronic eosinophilic pneumonia, and bronchioloalveolar cell carcinoma. * Recent non-STEMI likely making heart failure worse * C-reactive protein 20.0 * Albumin is significantly low at 1.5. This is likely also exacerbating her CHF. * Procalcitonin 0.61. This increases the likelihood of some bacterial component. Atrial fibrillation * Rate is stable * Not on anticoagulation Anemia * Patient had drop in her hemoglobin. Now it is 7.4. D-dimer increased to 4.37 being the reason for the CTA of the chest. * Patient has not had a bowel movement, therefore occult blood has not been done. * No source of bleeding identified. * Started on Lovenox 40 mg subcu yesterday Plan * Transfer to ICU * Albumin 12.5 g x 2 every 6 with Lasix 20 mg IV. Initial trial of Lasix with albumin still caused her blood pressure to drop, therefore we will move her to the ICU for Lasix drip. Unfortunately, nursing was unable to get a peripheral line so Dr. Glover was consulted for a central line. Patient may need norepinephrine if her blood pressure continues to be low. * Start Zosyn and vancomycin in case there is some component of bacterial pneumonia. * FiO2 to keep SPO2 between 88 and 94%. Currently on high flow nasal cannula. * Stop Lovenox 40 mg subcu daily * Get stool for occult blood -pending * Recheck CBC, CMP, mag, Phos, D-dimer, CRP in the morning * Recheck chest x-ray tomorrow. * Echocardiogram on Saturday * I spoke with her son today in regards to her prognosis. She continues to have a very poor prognosis. CT scan also demonstrated a worsening prognosis. I asked specifically if they wanted central line and more aggressive care and he agreed. He still agrees that she does not want to be resuscitated or intubated. I asked her directly and she reiterated that she did not want to be intubated or resuscitated. * CODE STATUS DNR/DNI * VTE prophylaxis with SCDs.
[2020-07-31] MEDS: Piperacillin/Tazobactam 4.5 GM in Sodium Chloride 0.9% 100 ML IV SCH (18:29)
[2020-08-01] MEDS: Piperacillin/Tazobactam 4.5 GM in Sodium Chloride 0.9% 100 ML IV SCH ×4 (06:03→21:50)
[2020-08-01] MEDS: Tiotropium BR/Olodaterol HCL 4 GM Inhalation Spray 2.5mcg/1 dose; 10 doses INH SCH (07:37)
[2020-08-01] MEDS: rOPINIRole 1 MG Tab PO SCH ×2 (08:44→21:53)
[2020-08-01] MEDS: Metoprolol Succinate 25 MG Tab.ER PO SCH (08:44)
[2020-08-01] MEDS: Rosuvastatin 10 MG Tab PO SCH (08:45)
[2020-08-01] MEDS: Lisinopril 10 MG Tab PO SCH (08:45)
[2020-08-01] MEDS: Digoxin 125 MCG Tab PO SCH (08:45)
[2020-08-01] MEDS: Nicotine 21 MG/24 Hr Patch TRDERM SCH (08:46)
[2020-08-01] MEDS: Potassium Chloride 10 MEQ in Premix Bag 1 BAG IV SCH ×4 (08:54→12:03)
--- NOTE | 2020-08-01 09:22 | CR ---
PROCEDURE INFORMATION: Exam: XR Chest, 1 View Exam date and time: 07/29/2020 9:06 PM Age: 85 years old Clinical indication: Dyspnea and shortness of breath; Patient HX: Patient tested positive for covid 2 weeks ago. SOB and low o2 onset today after release from other hospital TECHNIQUE: Imaging protocol: XR of the chest Views: 1 view. COMPARISON: No relevant prior studies available. FINDINGS: Lungs: There are bilateral alveolar opacities, especially on the left. There are coarse reticular interstitial markings bilaterally. Pleural space: There are moderate bilateral pleural effusions. Heart/Mediastinum: The heart is enlarged. The mediastinal and hilar contours are within normal limits. The pulmonary vessels are prominent and indistinct. Bones/joints: No acute osseous pathology is identified. IMPRESSION: 1. Cardiomegaly with vascular congestion and bilateral pleural effusions suggesting CHF/fluid overload. 2. There are bilateral alveolar opacities, left greater than right, which are nonspecific and could be due to pulmonary edema versus is pneumonia. Thank you for allowing us to participate in the care of your patient. Dictated and Authenticated by: Mary Mustafa MD 07/29/2020 10:45 PM Central Time ([place]) PATI
--- NOTE | 2020-08-01 09:55 | PCM.PRNOTE ---
- Free Text/Narrative Note: Procedure Note Procedure: central line placement, right IJ Indication: need for pressor support Surgeon: Lazaro Glover MD Written informed consent was obtained prior to starting the procedure. The patient's right neck was prepped and draped in sterile fashion. 2 cc 1% lidocaine was injected intradermally over the planned insertion site, which was identified with the use of ultrasound. Under ultrasound guidance, a large hollow needle on syringe was passed into the right internal jugular vein and dark blood was aspirated. The patient seemed hypovolemic and it was difficult to keep the needle in proper intraluminal position at first. However, using ultrasound, optimal needle tip placement was ensured, and a guidewire was placed though the needle without resistance. Ectopy was noted on telemetry. The needle was removed over the wire. A small stab incision was made at the wire insertion site to permit passage of the dilator. The tract was dilated and a triple lumen central venous catheter was placed in position over the guidewire. This was placed with length to tip from skin 20 cm. The wire was withdrawn. All ports baudilio and flushed properly. A bio-patch was placed at the insertion site and a sterile dressing applied after securing the line to the skin with silk suture. A chest x-ray was obtained confirming proper positioning in the SVC. The patient tolerated the procedure well.
--- NOTE | 2020-08-01 13:34 | CR ---
PROCEDURE INFORMATION: Exam: XR Chest, 1 View Exam date and time: 07/31/2020 3:37 PM Age: 85 years old Clinical indication: Device placement; Other: Central line. TECHNIQUE: Imaging protocol: XR of the chest Views: 1 view. COMPARISON: CT Ang Chest 07/31/2020 8:33 AM FINDINGS: Tubes, catheters and devices: Right-sided central line is in place with the tip in the distal superior vena cava or right atrium. Lungs: Diffuse patchy airspace opacities present bilaterally which may be seen with interstitial pneumonia and/or edema. Other etiologies not excluded. Pleural space: There is no evidence of pneumothorax. Bilateral pleural effusions are present. Heart/Mediastinum: The heart demonstrates mild diffuse enlargement. Vasculature: The vasculature demonstrates diffuse mild atherosclerotic calcification. Bones/joints: The thoracic spine demonstrates mild degenerative changes at multiple levels. IMPRESSION: 1. Right-sided central line is in place with the tip in the distal superior vena cava or right atrium. 2. There is no evidence of pneumothorax. 3. Diffuse patchy airspace opacities present bilaterally which may be seen with interstitial pneumonia and/or edema. Other etiologies not excluded. 4. Bilateral pleural effusions are present. Dictated and Authenticated by: Abdelrahman Beckett DO 07/31/2020 5:09 PM Central Time ([place]) PATI
--- NOTE | 2020-08-01 14:28 | CR ---
PROCEDURE INFORMATION: Exam: XR Chest, 1 View Exam date and time: 07/31/2020 7:08 AM Age: 85 years old Clinical indication: Other: Chf TECHNIQUE: Imaging protocol: XR of the chest Views: 1 view. COMPARISON: CR Chest 1V Frontal 07/29/2020 9:06 PM FINDINGS: Lungs: There is marked perihilar interstitial prominence consistent with volume overload or congestive heart failure. There is subjacent atelectasis at the lung bases. Ground-glass airspace disease at the lower lung piña. Pleural space: There are moderate bilateral pleural effusions present. Heart/Mediastinum: The heart is enlarged. Bones/joints: Unremarkable. IMPRESSION: 1. There is marked perihilar interstitial prominence consistent with volume overload or congestive heart failure. These findings have worsened since previous study. 2. Ground-glass airspace disease at the lower lung piña. Thank you for allowing us to participate in the care of your patient. Dictated and Authenticated by: Wali Damico MD 07/31/2020 8:57 AM Central Time ([place]) PATI
--- NOTE | 2020-08-01 14:32 | CT ---
PROCEDURE INFORMATION: Exam: CT Chest With Contrast Exam date and time: 07/31/2020 8:33 AM Age: 85 years old Clinical indication: Abnormal findings; Abnormal diagnostic tests; Elevated d- dimer; Patient HX: PT is on high flow oxygen. Covid + TECHNIQUE: Imaging protocol: Computed tomography of the chest with intravenous contrast. 3D rendering (Not supervised by radiologist): MIP and/or 3D reconstructed images were created by the technologist. Radiation optimization: All CT scans at this facility use at least one of these dose optimization techniques: automated exposure control; mA and/or kV adjustment per patient size (includes targeted exams where dose is matched to clinical indication); or iterative reconstruction. Contrast material: [id number]; Contrast volume: 100 ml; Contrast route: INTRAVENOUS (IV); COMPARISON: CR Chest 1V Frontal 07/31/2020 7:08 AM FINDINGS: Thyroid: Substernal extension of the left lobe of the thyroid. Lungs: Tracheobronchial senile calcifications of the cartilaginous rings (CCR). There is subjacent atelectasis at the lung bases. Bilateral multifocal pulmonary groundglass opacities with interlobular septal thickening suggesting the "crazy- paving" pattern. This pattern can be associated with acute interstitial pneumonia, adult respiratory distress syndrome, pulmonary edema, pulmonary hemorrhage, pneumonia, alveolar proteinosis, hypersensitivity pneumonitis, cryptogenic organizing pneumonia, chronic eosinophilic pneumonia, and bronchioloalveolar cell carcinoma. Pleural space: There are moderate bilateral pleural effusions present. Heart: The heart is enlarged. There is no flattening of the interventricular septum, paradoxical interventricular septum bowing, or right ventricular enlargement to suggest right ventricular strain. Pulmonary arteries: No evidence of pulmonary emboli. Dilated central pulmonary arteries suggesting pulmonary arterial hypertension. Aorta: Unremarkable. No aortic aneurysm. Lymph nodes: Unremarkable. No enlarged lymph nodes. Bones/joints: There is multilevel degenerative disc disease. Soft tissues: Unremarkable. IMPRESSION: 1. No evidence of pulmonary emboli. 2. Bilateral multifocal pulmonary groundglass opacities with interlobular septal thickening suggesting the "crazy-paving" pattern. This pattern can be associated with acute interstitial pneumonia, adult respiratory distress syndrome, pulmonary edema, pulmonary hemorrhage, pneumonia, alveolar proteinosis, hypersensitivity pneumonitis, cryptogenic organizing pneumonia, chronic eosinophilic pneumonia, and bronchioloalveolar cell carcinoma. Thank you for allowing us to participate in the care of your patient. Dictated and Authenticated by: Wali Damico MD 07/31/2020 11:13 AM Central Time ([place]) PATI
--- NOTE | 2020-08-01 16:50 | PCM.PN ---
- General Info Date of Service: 08/01/20 Admission Dx/Problem (Free Text): Admission Diagnosis/Problem Admission Diagnosis/Problem Hypoxia Subjective Update: Patient feels tired and has a poor appetite. She is having difficulty breathing. - Review of Systems General: Reports: Fatigue, Malaise HEENT: Reports: No Symptoms Pulmonary: Reports: Shortness of Breath, Cough Cardiovascular: Reports: No Symptoms Gastrointestinal: Reports: Decreased Appetite Musculoskeletal: Reports: No Symptoms - Patient Data Vitals - Most Recent: Last Vital Signs Temp 98.2 F 08/01/20 16:00 Pulse 86 08/01/20 08:45 Resp 28 H 08/01/20 16:00 BP 110/61 08/01/20 16:00 Pulse Ox 98 08/01/20 16:00 Weight - Most Recent: 140 lb I&O - Last 24 Hours: Intake & Output 08/01/20 08/01/20 08/01/20 06:59 14:59 22:59 Intake Total 300 240 900 Output Total 1275 720 Balance -975 -480 900 Lab Results Last 24 Hours: Laboratory Results - last 24 hr 08/01/20 08/01/20 Range/Units 05:08 05:08 WBC 4.43 (3.98-10.04) K/mm3 RBC 2.61 L (3.98-5.22) M/mm3 Hgb 7.4 L (11.2-15.7) gm/dl Hct 24.9 L (34.1-44.9) % MCV 95.4 H (79.4-94.8) fl MCH 28.4 (25.6-32.2) pg MCHC 29.7 L (32.2-35.5) g/dl RDW Std Deviation 49.0 H (36.4-46.3) fL Plt Count 138 L (182-369) K/mm3 MPV 11.1 (9.4-12.3) fl Neut % (Auto) 80.8 H (34.0-71.1) % Lymph % (Auto) 13.8 L (19.3-51.7) % [place] % (Auto) 4.3 L (4.7-12.5) % Eos % (Auto) 0.9 (0.7-5.8) Baso % (Auto) 0.2 (0.1-1.2) % Neut # (Auto) 3.58 (1.56-6.13) K/mm3 Lymph # (Auto) 0.61 L (1.18-3.74) K/mm3 [place] # (Auto) 0.19 L (0.24-0.36) K/mm3 Eos # (Auto) 0.04 (0.04-0.36) K/mm3 Baso # (Auto) 0.01 (0.01-0.08) K/mm3 Manual Slide Review Abnormal smear Sodium 141 (136-145) mEq/L Potassium 2.9 L (3.5-5.1) mEq/L Chloride 103 (98-107) mEq/L Carbon Dioxide 32 (21-32) mEq/L Anion Gap 8.9 (5-15) BUN 17 (7-18) mg/dL Creatinine 0.8 (0.55-1.02) mg/dL Est Cr Clr Drug Dosing 49.09 mL/min Estimated GFR (MDRD) > 60 (>60) mL/min BUN/Creatinine Ratio 21.3 H (14-18) Glucose 126 H (83-115) mg/dL Calcium 7.7 L (8.5-10.1) mg/dL Phosphorus 2.9 (2.6-4.7) mg/dL Magnesium 2.0 (1.8-2.4) mg/dl Total Bilirubin 1.0 (0.2-1.0) mg/dL AST 60 H (15-37) U/L ALT 48 (14-59) U/L Alkaline Phosphatase 56 (46-116) U/L C-Reactive Protein 17.6 H* (<1.0) mg/dL Total Protein 5.2 L (6.4-8.2) g/dl Albumin 1.9 L (3.4-5.0) g/dl Globulin 3.3 gm/dL Albumin/Globulin Ratio 0.6 L (1-2) Efe Results Last 24 Hours: Microbiology 07/31/20 11:23 Aerobic Blood Culture - Preliminary Blood - Venous - Lab Draw NO GROWTH AFTER 1 DAY Anaerobic Blood Culture - Preliminary NO GROWTH AFTER 1 DAY 07/31/20 11:15 Aerobic Blood Culture - Preliminary Blood - Venous NO GROWTH AFTER 1 DAY Anaerobic Blood Culture - Preliminary NO GROWTH AFTER 1 DAY Med Orders - Current: Current Medications Acetaminophen (Tylenol) 650 mg PO Q4H PRN PRN Reason: Pain (Mild 1-3)/fever Digoxin (Lanoxin) 125 mcg PO DAILY [facility] Last Admin: 08/01/20 08:45 Dose: 125 mcg Documented by: Furosemide 100 mg/ Sodium (Chloride) 100 mls @ 4 mls/hr IV TITRATE [facility]; Protocol Last Admin: 07/31/20 16:14 Dose: 4 mg/hr, 4 mls/hr Documented by: Piperacillin Sod/Tazobactam (Sod 4.5 gm/ Sodium Chloride) 100 mls @ 25 mls/hr IV Q8H [facility] Last Admin: 08/01/20 13:17 Dose: 25 mls/hr Documented by: Vancomycin HCl 1 gm/ Sodium (Chloride) 250 mls @ 250 mls/hr IV Q18H [facility] Last Admin: 08/01/20 08:44 Dose: 250 mls/hr Documented by: Lisinopril (Prinivil) 10 mg PO DAILY [facility] Last Admin: 08/01/20 08:45 Dose: 10 mg Documented by: Metoprolol Succinate (Toprol Xl) 12.5 mg PO DAILY [facility] Last Admin: 08/01/20 08:44 Dose: 12.5 mg Documented by: Miscellaneous Information (Remove Patch) 1 ea TRDERM DAILY [facility] Last Admin: 08/01/20 08:46 Dose: Not Given Documented by: Nicotine (Habitrol) 21 mg TRDERM DAILY [facility] Last Admin: 08/01/20 08:46 Dose: Not Given Documented by: Nitroglycerin (Nitrostat) 0.4 mg SL ASDIRECTED PRN PRN Reason: Chest Pain Ondansetron HCl (Zofran) 4 mg IV Q4H PRN PRN Reason: Nausea/Vomiting Potassium Chloride (Klor-Con M20) 40 meq PO ONETIME ONE Stop: 08/01/20 21:01 Ropinirole HCl (Requip) 2 mg PO BID [facility] Last Admin: 08/01/20 08:44 Dose: 2 mg Documented by: Rosuvastatin Calcium (Crestor) 10 mg PO DAILY [facility] Last Admin: 08/01/20 08:45 Dose: 10 mg Documented by: Sodium Chloride (Saline Flush) 10 ml FLUSH ONETIME PRN PRN Reason: Keep Vein Open Last Admin: 07/31/20 09:37 Dose: 10 ml Documented by: Vancomycin HCl (Pharmacy To Dose - Vancomycin) 1 dose .XX ASDIRECTED PRN PRN Reason: RX TO DOSE VANCO Discontinued Medications Enoxaparin Sodium (Lovenox) 40 mg SUBCUT DAILY [facility] Last Admin: 07/30/20 18:05 Dose: Not Given Documented by: Enoxaparin Sodium (Lovenox) 40 mg SUBCUT DAILY@1800 [facility] Last Admin: 07/30/20 18:05 Dose: 40 mg Documented by: Furosemide (Lasix) 20 mg IVPUSH ONETIME ONE Stop: 07/30/20 00:16 Last Admin: 07/30/20 00:39 Dose: 20 mg Documented by: Furosemide (Lasix) 20 mg IVPUSH ONETIME ONE Stop: 07/30/20 11:30 Last Admin: 07/30/20 12:13 Dose: 20 mg Documented by: Furosemide (Lasix) 20 mg IVPUSH ONETIME ONE Stop: 07/30/20 19:52 Last Admin: 07/30/20 21:42 Dose: 20 mg Documented by: Furosemide (Lasix) 20 mg IVPUSH Q6H [facility] Stop: 07/31/20 17:01 Last Admin: 07/31/20 11:20 Dose: 20 mg Documented by: Sodium Chloride (Normal Saline) 1,000 mls @ 500 mls/hr IV ASDIRECTED [facility] Last Admin: 07/29/20 21:20 Dose: 500 mls/hr Documented by: Sodium Chloride (Normal Saline) 1,000 mls @ 75 mls/hr IV ASDIRECTED [facility] Last Admin: 07/31/20 11:26 Dose: 75 mls/hr Documented by: Albumin Human (Flexbumin 25%) 12.5 gm in 50 mls @ 100 mls/hr IV Q6H [facility] Stop: 07/31/20 17:29 Last Admin: 07/31/20 16:10 Dose: 100 mls/hr Documented by: Piperacillin Sod/Tazobactam (Sod 4.5 gm/ Sodium Chloride) 100 mls @ 25 mls/hr IV Q8H [facility] Last Admin: 08/01/20 06:03 Dose: 25 mls/hr Documented by: Piperacillin Sod/Tazobactam (Sod 4.5 gm/ Sodium Chloride) 100 mls @ 200 mls/hr IV ONETIME ONE Stop: 07/31/20 11:18 Last Admin: 07/31/20 11:14 Dose: 200 mls/hr Documented by: Vancomycin HCl 1 gm/ Sodium (Chloride) 250 mls @ 250 mls/hr IV Q24H [facility] Last Admin: 07/31/20 13:05 Dose: 250 mls/hr Documented by: Potassium Chloride 10 meq/ (Premix) 100 mls @ 100 mls/hr IV Q1H [facility] Stop: 08/01/20 13:29 Last Admin: 08/01/20 12:03 Dose: 100 mls/hr Documented by: Iopamidol (Isovue-370 (76%)) 100 ml IVPUSH ONETIME ONE Stop: 07/31/20 08:27 Last Admin: 07/31/20 09:37 Dose: 100 ml Documented by: Potassium Chloride (Klor-Con M20) 40 meq PO ONETIME ONE Stop: 08/01/20 17:01 - Exam Quality Assessment: Supplemental Oxygen (High flow nasal cannula), Urine Catheter General: Alert, Oriented HEENT: Pupils Equal, Mucous Membr. Moist/[place] Neck: Supple Lungs: Decreased Breath Sounds, Rales. No: Normal Respiratory Effort (Increased respiratory rate and effort) Cardiovascular: Regular Rate, Regular Rhythm GI/Abdominal Exam: Normal Bowel Sounds, Soft, Non-Tender, No Distention Extremities: Normal Inspection, Normal Range of Motion, Non-Tender, No Pedal Edema, Normal Capillary Refill Skin: Warm, Dry, Intact Sepsis Event Note - Evaluation Sepsis Screening Result: No Definite Risk - Focused Exam Vital Signs: Vital Signs Temp Pulse Resp BP BP Pulse Ox Pulse Ox 08/01/20 16:00 98.2 F 28 H 110/61 98 08/01/20 14:19 97 08/01/20 12:00 98.2 F 22 H 101/62 99 08/01/20 11:31 96 08/01/20 08:45 86 109/60 08/01/20 08:44 90 109/60 08/01/20 08:00 98.4 F 19 109/60 87 L 08/01/20 07:38 96 08/01/20 06:34 93 L - Problem List & Annotations (1) Congestive heart failure SNOMED Code(s): 55354432 Code(s): I50.9 - HEART FAILURE, UNSPECIFIED Status: Acute Current Visit: Yes Qualifiers: Heart failure type: unspecified Heart failure chronicity: acute on chronic Qualified Code(s): I50.9 - Heart failure, unspecified (2) Hypoxemia SNOMED Code(s): 199389939 Code(s): R09.02 - HYPOXEMIA Status: Acute Current Visit: Yes (3) Pleural effusion SNOMED Code(s): 86580748 Code(s): J90 - PLEURAL EFFUSION, NOT ELSEWHERE CLASSIFIED Status: Acute Current Visit: Yes (4) COVID-19 virus detected SNOMED Code(s): 0684189967755807 Code(s): U07.1 - COVID-19 Status: Acute Current Visit: Yes (5) Anemia SNOMED Code(s): 371345620 Code(s): D64.9 - ANEMIA, UNSPECIFIED Status: Acute Current Visit: Yes (6) Prolonged Q-T interval on ECG SNOMED Code(s): 033115112 Code(s): R94.31 - ABNORMAL ELECTROCARDIOGRAM [ECG] [EKG] Status: Acute Current Visit: Yes - Problem List Review Problem List Initiated/Reviewed/Updated: Yes - My Orders Last 24 Hours: My Active Orders 07/31/20 Dinner Fluid Restriction [DIET] 08/01/20 05:00 Piperacillin/Tazobactam [Piperacil-Tazobact] 4.5 gm Sodium Chloride 0.9% [Normal Saline] 100 ml IV Q8H 08/01/20 08:00 Vancomycin [Vancocin] 1 gm Sodium Chloride 0.9% [Normal Saline (AdvBag)] 250 ml IV Q18H 08/01/20 Dinner Heart Healthy Diet [DIET] 08/01/20 21:00 Potassium Chloride [Klor-Con M20] 40 meq PO ONETIME ONE 08/02/20 19:00 VANCOMYCIN TROUGH [CHEM] Timed - Plan Plan:: Assessment 85-year-old female discharged today from [facility] after being treated for COVID-19 presents to the emergency department with hypoxemia. COPD Exacerbation of CHF * Patient placed on Lasix drip yesterday with boluses of albumin. She has had a significant negative fluid balance, but it has not had any effect on her respiratory status. Valerie has a very poor * CT chest with contrast: * 1. No evidence of pulmonary emboli. * 2. Bilateral multifocal pulmonary groundglass opacities with interlobular septal thickening suggesting the "crazy paving" pattern. This pattern can be associated with acute interstitial pneumonia, adult respiratory distress syndrome, pulmonary edema, pulmonary hemorrhage, pneumonia, LVO are proteinosis, hypersensitivity pneumonitis, cryptogenic organizing pneumonia, chronic eosinophilic pneumonia, and bronchioloalveolar cell carcinoma. * Recent non-STEMI likely making heart failure worse * Albumin has come up to 1.9. This is likely also exacerbating her CHF. * Procalcitonin 0.61. This increases the likelihood of some bacterial component. Atrial fibrillation * Rate generally in the 80s * New onset and had significant bleed on anticoagulation Anemia * Hemoglobin stable at 7.4. * Patient has not had a bowel movement, therefore occult blood has not been done. * Review of her old records shows that she had new onset atrial fibrillation and started on heparin drip. Apparently she had significant blood loss that required transfusions and reversal of heparin. She developed a large hematoma on the right flank and surgery was consulted. No indication for I&D. Plan * ICU * Stop Lasix drip this afternoon * Continue Zosyn and vancomycin in case there is some component of bacterial pneumonia. * FiO2 to keep SPO2 between 88 and 94%. Currently on high flow nasal cannula. * Get stool for occult blood -pending * Recheck CBC, CMP, mag, Phos, D-dimer, CRP, procalcitonin in the morning * Patient is considering comfort measures, therefore echo was not ordered * I again discussed with her and her son her poor prognosis. Patient is considering comfort measures. At this time we will continue with high flow nasal cannula and aggressive treatment. * CODE STATUS DNR/DNI * VTE prophylaxis with SCDs.
[2020-08-01] MEDS ORDERED: Potassium Chloride 20 MEQ Tab.ER PO ONE ×3 (17:00→21:51)
[2020-08-02] MEDS: Piperacillin/Tazobactam 4.5 GM in Sodium Chloride 0.9% 100 ML IV SCH ×3 (04:44→22:33)
[2020-08-02] MEDS: Tiotropium BR/Olodaterol HCL 4 GM Inhalation Spray 2.5mcg/1 dose; 10 doses INH SCH (07:56)
[2020-08-02] MEDS: Furosemide 20 MG/2 ML VIAL IVPUSH SCH ×4 (08:03→23:58)
[2020-08-02] MEDS: Rosuvastatin 10 MG Tab PO SCH (08:31)
[2020-08-02] MEDS: Lisinopril 10 MG Tab PO SCH (08:32)
[2020-08-02] MEDS: rOPINIRole 1 MG Tab PO SCH ×2 (08:32→21:42)
[2020-08-02] MEDS: Metoprolol Succinate 25 MG Tab.ER PO SCH (08:34)
[2020-08-02] MEDS: Digoxin 125 MCG Tab PO SCH (08:35)
[2020-08-02] MEDS: Nicotine 21 MG/24 Hr Patch TRDERM SCH (08:36)
[2020-08-02] MEDS ORDERED: Sodium Chloride 0.9% 250 ML IV SCH (10:30)
[2020-08-02] MEDS ORDERED: Potassium Chloride 20 MEQ Tab.ER PO ONE (21:27)
--- NOTE | 2020-08-02 21:30 | PCM.PN ---
- General Info Date of Service: 08/02/20 Admission Dx/Problem (Free Text): Admission Diagnosis/Problem Admission Diagnosis/Problem Hypoxia Subjective Update: Patient is much more lethargic today. Last night she was in good spirits. Oxygenation has actually improved. Functional Status: Reports: Pain Controlled - Review of Systems General: Reports: Fatigue HEENT: Reports: No Symptoms Pulmonary: Reports: Shortness of Breath Cardiovascular: Reports: No Symptoms Musculoskeletal: Reports: No Symptoms - Patient Data Vitals - Most Recent: Last Vital Signs Temp 97.6 F 08/02/20 19:45 Pulse 88 08/02/20 19:45 Resp 20 08/02/20 19:45 BP 106/89 08/02/20 19:45 Pulse Ox 93 L 08/02/20 19:40 Weight - Most Recent: 144 lb 9.972 oz I&O - Last 24 Hours: Intake & Output 08/02/20 08/02/20 08/02/20 06:59 14:59 22:59 Intake Total 380 180 970 Output Total 240 1525 600 Balance 140 -1345 370 Lab Results Last 24 Hours: Laboratory Results - last 24 hr 08/02/20 08/02/20 08/02/20 Range/Units 05:21 05:21 05:21 WBC 4.12 (3.98-10.04) K/mm3 RBC 2.45 L (3.98-5.22) M/mm3 Hgb 7.0 L* (11.2-15.7) gm/dl Hct 23.5 L (34.1-44.9) % MCV 95.9 H (79.4-94.8) fl MCH 28.6 (25.6-32.2) pg MCHC 29.8 L (32.2-35.5) g/dl RDW Std Deviation 47.5 H (36.4-46.3) fL Plt Count 131 L (182-369) K/mm3 MPV 10.9 (9.4-12.3) fl Neut % (Auto) 75.9 H (34.0-71.1) % Lymph % (Auto) 19.2 L (19.3-51.7) % Bailey % (Auto) 3.2 L (4.7-12.5) % Eos % (Auto) 1.5 (0.7-5.8) Baso % (Auto) 0.2 (0.1-1.2) % Neut # (Auto) 3.13 (1.56-6.13) K/mm3 Lymph # (Auto) 0.79 L (1.18-3.74) K/mm3 Bailey # (Auto) 0.13 L (0.24-0.36) K/mm3 Eos # (Auto) 0.06 (0.04-0.36) K/mm3 Baso # (Auto) 0.01 (0.01-0.08) K/mm3 Manual Slide Review Abnormal smear PT (9.7-12.0) SECONDS INR APTT (21.7-31.4) SECONDS D-Dimer, Quantitative 3.56 H (0.19-0.50) mg/L Puncture Site ABG pH (7.35-7.45) ABG pCO2 (35.0-45.0) mmHg ABG pO2 (80.0-100.0) mmHg ABG HCO3 (22.0-26.0) meq/L ABG O2 Saturation (96.0-97.0) % ABG Base Excess (-2-2.0) Aidan Test A-a Gradient mmHg O2 Delivery Device Oxygen Flow Rate FiO2 (21.00-100.00) % Sodium (136-145) mEq/L Potassium (3.5-5.1) mEq/L Chloride (98-107) mEq/L Carbon Dioxide (21-32) mEq/L Anion Gap (5-15) BUN (7-18) mg/dL Creatinine (0.55-1.02) mg/dL Est Cr Clr Drug Dosing mL/min Estimated GFR (MDRD) (>60) mL/min BUN/Creatinine Ratio (14-18) Glucose (83-115) mg/dL Calcium (8.5-10.1) mg/dL Phosphorus (2.6-4.7) mg/dL Magnesium (1.8-2.4) mg/dl Total Bilirubin (0.2-1.0) mg/dL AST (15-37) U/L ALT (14-59) U/L Alkaline Phosphatase (46-116) U/L C-Reactive Protein (<1.0) mg/dL Total Protein (6.4-8.2) g/dl Albumin (3.4-5.0) g/dl Globulin gm/dL Albumin/Globulin Ratio (1-2) Procalcitonin 0.07 (<0.10) ng/mL Vancomycin Trough (10.0-20.0) Blood Type Gel Antibody Screen Crossmatch 08/02/20 08/02/20 08/02/20 Range/Units 05:21 05:21 05:21 WBC (3.98-10.04) K/mm3 RBC (3.98-5.22) M/mm3 Hgb (11.2-15.7) gm/dl Hct (34.1-44.9) % MCV (79.4-94.8) fl MCH (25.6-32.2) pg MCHC (32.2-35.5) g/dl RDW Std Deviation (36.4-46.3) fL Plt Count (182-369) K/mm3 MPV (9.4-12.3) fl Neut % (Auto) (34.0-71.1) % Lymph % (Auto) (19.3-51.7) % Bailey % (Auto) (4.7-12.5) % Eos % (Auto) (0.7-5.8) Baso % (Auto) (0.1-1.2) % Neut # (Auto) (1.56-6.13) K/mm3 Lymph # (Auto) (1.18-3.74) K/mm3 Bailey # (Auto) (0.24-0.36) K/mm3 Eos # (Auto) (0.04-0.36) K/mm3 Baso # (Auto) (0.01-0.08) K/mm3 Manual Slide Review PT 11.6 (9.7-12.0) SECONDS INR 1.09 APTT (21.7-31.4) SECONDS D-Dimer, Quantitative (0.19-0.50) mg/L Puncture Site ABG pH (7.35-7.45) ABG pCO2 (35.0-45.0) mmHg ABG pO2 (80.0-100.0) mmHg ABG HCO3 (22.0-26.0) meq/L ABG O2 Saturation (96.0-97.0) % ABG Base Excess (-2-2.0) Aidan Test A-a Gradient mmHg O2 Delivery Device Oxygen Flow Rate FiO2 (21.00-100.00) % Sodium 143 (136-145) mEq/L Potassium 3.6 (3.5-5.1) mEq/L Chloride 107 (98-107) mEq/L Carbon Dioxide 35 H (21-32) mEq/L Anion Gap 4.6 L (5-15) BUN 16 (7-18) mg/dL Creatinine 0.7 (0.55-1.02) mg/dL Est Cr Clr Drug Dosing 54.00 mL/min Estimated GFR (MDRD) > 60 (>60) mL/min BUN/Creatinine Ratio 22.9 H (14-18) Glucose 87 (83-115) mg/dL Calcium 7.5 L (8.5-10.1) mg/dL Phosphorus 2.6 (2.6-4.7) mg/dL Magnesium 1.9 (1.8-2.4) mg/dl Total Bilirubin 1.0 (0.2-1.0) mg/dL AST 37 (15-37) U/L ALT 38 (14-59) U/L Alkaline Phosphatase 47 (46-116) U/L C-Reactive Protein 15.7 H* (<1.0) mg/dL Total Protein 4.8 L (6.4-8.2) g/dl Albumin 1.6 L (3.4-5.0) g/dl Globulin 3.2 gm/dL Albumin/Globulin Ratio 0.5 L (1-2) Procalcitonin (<0.10) ng/mL Vancomycin Trough (10.0-20.0) Blood Type A NEGATIVE Gel Antibody Screen Negative Crossmatch See Detail 08/02/20 08/02/20 08/02/20 Range/Units 05:21 11:28 19:18 WBC (3.98-10.04) K/mm3 RBC (3.98-5.22) M/mm3 Hgb (11.2-15.7) gm/dl Hct (34.1-44.9) % MCV (79.4-94.8) fl MCH (25.6-32.2) pg MCHC (32.2-35.5) g/dl RDW Std Deviation (36.4-46.3) fL Plt Count (182-369) K/mm3 MPV (9.4-12.3) fl Neut % (Auto) (34.0-71.1) % Lymph % (Auto) (19.3-51.7) % Bailey % (Auto) (4.7-12.5) % Eos % (Auto) (0.7-5.8) Baso % (Auto) (0.1-1.2) % Neut # (Auto) (1.56-6.13) K/mm3 Lymph # (Auto) (1.18-3.74) K/mm3 Bailey # (Auto) (0.24-0.36) K/mm3 Eos # (Auto) (0.04-0.36) K/mm3 Baso # (Auto) (0.01-0.08) K/mm3 Manual Slide Review PT (9.7-12.0) SECONDS INR APTT 24.4 (21.7-31.4) SECONDS D-Dimer, Quantitative (0.19-0.50) mg/L Puncture Site Rt radial ABG pH 7.47 H (7.35-7.45) ABG pCO2 48.0 H (35.0-45.0) mmHg ABG pO2 70.0 L (80.0-100.0) mmHg ABG HCO3 34.4 H (22.0-26.0) meq/L ABG O2 Saturation 93.8 L (96.0-97.0) % ABG Base Excess 9.9 H (-2-2.0) Aidan Test Positive A-a Gradient 334 mmHg O2 Delivery Device [place]if[place] nasal cannula Oxygen Flow Rate 40.0 FiO2 65.00 (21.00-100.00) % Sodium (136-145) mEq/L Potassium (3.5-5.1) mEq/L Chloride (98-107) mEq/L Carbon Dioxide (21-32) mEq/L Anion Gap (5-15) BUN (7-18) mg/dL Creatinine (0.55-1.02) mg/dL Est Cr Clr Drug Dosing mL/min Estimated GFR (MDRD) (>60) mL/min BUN/Creatinine Ratio (14-18) Glucose (83-115) mg/dL Calcium (8.5-10.1) mg/dL Phosphorus (2.6-4.7) mg/dL Magnesium (1.8-2.4) mg/dl Total Bilirubin (0.2-1.0) mg/dL AST (15-37) U/L ALT (14-59) U/L Alkaline Phosphatase (46-116) U/L C-Reactive Protein (<1.0) mg/dL Total Protein (6.4-8.2) g/dl Albumin (3.4-5.0) g/dl Globulin gm/dL Albumin/Globulin Ratio (1-2) Procalcitonin (<0.10) ng/mL Vancomycin Trough 11.2 (10.0-20.0) Blood Type Gel Antibody Screen Crossmatch Efe Results Last 24 Hours: Microbiology 07/31/20 11:23 Aerobic Blood Culture - Preliminary Blood - Venous - Lab Draw NO GROWTH AFTER 2 DAYS Anaerobic Blood Culture - Preliminary NO GROWTH AFTER 2 DAYS 07/31/20 11:15 Aerobic Blood Culture - Preliminary Blood - Venous NO GROWTH AFTER 2 DAYS Anaerobic Blood Culture - Preliminary NO GROWTH AFTER 2 DAYS Med Orders - Current: Current Medications Acetaminophen (Tylenol) 650 mg PO Q4H PRN PRN Reason: Pain (Mild 1-3)/fever Digoxin (Lanoxin) 125 mcg PO DAILY [facility] Last Admin: 08/02/20 08:35 Dose: 125 mcg Documented by: Furosemide (Lasix) 20 mg IVPUSH Q6H [facility] Last Admin: 08/02/20 17:22 Dose: 20 mg Documented by: Furosemide 100 mg/ Sodium (Chloride) 100 mls @ 4 mls/hr IV TITRATE EMELINA; Protocol Last Titration: 08/01/20 17:52 Dose: Infused Documented by: Piperacillin Sod/Tazobactam (Sod 4.5 gm/ Sodium Chloride) 100 mls @ 25 mls/hr IV Q8H [facility] Last Admin: 08/02/20 12:04 Dose: 25 mls/hr Documented by: Sodium Chloride (Normal Saline) 250 mls @ 25 mls/hr IV ASDIRECTED [facility] Vancomycin HCl 1 gm/Vancomycin HCl 250 mg/ Sodium Chloride 250 mls @ 250 mls/hr IV Q18H [facility] Lisinopril (Prinivil) 10 mg PO DAILY [facility] Last Admin: 08/02/20 08:32 Dose: 10 mg Documented by: Metoprolol Succinate (Toprol Xl) 12.5 mg PO DAILY [facility] Last Admin: 08/02/20 08:34 Dose: 12.5 mg Documented by: Miscellaneous Information (Remove Patch) 1 ea TRDERM DAILY [facility] Last Admin: 08/02/20 08:35 Dose: Not Given Documented by: Nicotine (Habitrol) 21 mg TRDERM DAILY [facility] Last Admin: 08/02/20 08:36 Dose: Not Given Documented by: Nitroglycerin (Nitrostat) 0.4 mg SL ASDIRECTED PRN PRN Reason: Chest Pain Ondansetron HCl (Zofran) 4 mg IV Q4H PRN PRN Reason: Nausea/Vomiting Ropinirole HCl (Requip) 2 mg PO BID [facility] Last Admin: 08/02/20 08:32 Dose: 2 mg Documented by: Rosuvastatin Calcium (Crestor) 10 mg PO DAILY [facility] Last Admin: 08/02/20 08:31 Dose: 10 mg Documented by: Sodium Chloride (Saline Flush) 10 ml FLUSH ONETIME PRN PRN Reason: Keep Vein Open Last Admin: 07/31/20 09:37 Dose: 10 ml Documented by: Vancomycin HCl (Pharmacy To Dose - Vancomycin) 1 dose .XX ASDIRECTED PRN PRN Reason: RX TO DOSE VANCO Discontinued Medications Enoxaparin Sodium (Lovenox) 40 mg SUBCUT DAILY [facility] Last Admin: 07/30/20 18:05 Dose: Not Given Documented by: Enoxaparin Sodium (Lovenox) 40 mg SUBCUT DAILY@1800 [facility] Last Admin: 07/30/20 18:05 Dose: 40 mg Documented by: Furosemide (Lasix) 20 mg IVPUSH ONETIME ONE Stop: 07/30/20 00:16 Last Admin: 07/30/20 00:39 Dose: 20 mg Documented by: Furosemide (Lasix) 20 mg IVPUSH ONETIME ONE Stop: 07/30/20 11:30 Last Admin: 07/30/20 12:13 Dose: 20 mg Documented by: Furosemide (Lasix) 20 mg IVPUSH ONETIME ONE Stop: 07/30/20 19:52 Last Admin: 07/30/20 21:42 Dose: 20 mg Documented by: Furosemide (Lasix) 20 mg IVPUSH Q6H [facility] Stop: 07/31/20 17:01 Last Admin: 07/31/20 11:20 Dose: 20 mg Documented by: Sodium Chloride (Normal Saline) 1,000 mls @ 500 mls/hr IV ASDIRECTED [facility] Last Admin: 07/29/20 21:20 Dose: 500 mls/hr Documented by: Sodium Chloride (Normal Saline) 1,000 mls @ 75 mls/hr IV ASDIRECTED [facility] Last Admin: 07/31/20 11:26 Dose: 75 mls/hr Documented by: Albumin Human (Flexbumin 25%) 12.5 gm in 50 mls @ 100 mls/hr IV Q6H [facility] Stop: 07/31/20 17:29 Last Admin: 07/31/20 16:10 Dose: 100 mls/hr Documented by: Piperacillin Sod/Tazobactam (Sod 4.5 gm/ Sodium Chloride) 100 mls @ 25 mls/hr IV Q8H [facility] Last Admin: 08/01/20 06:03 Dose: 25 mls/hr Documented by: Piperacillin Sod/Tazobactam (Sod 4.5 gm/ Sodium Chloride) 100 mls @ 200 mls/hr IV ONETIME ONE Stop: 07/31/20 11:18 Last Admin: 07/31/20 11:14 Dose: 200 mls/hr Documented by: Vancomycin HCl 1 gm/ Sodium (Chloride) 250 mls @ 250 mls/hr IV Q24H [facility] Last Admin: 07/31/20 13:05 Dose: 250 mls/hr Documented by: Vancomycin HCl 1 gm/ Sodium (Chloride) 250 mls @ 250 mls/hr IV Q18H [facility] Last Admin: 08/02/20 01:10 Dose: 250 mls/hr Documented by: Potassium Chloride 10 meq/ (Premix) 100 mls @ 100 mls/hr IV Q1H [facility] Stop: 08/01/20 13:29 Last Admin: 08/01/20 12:03 Dose: 100 mls/hr Documented by: Iopamidol (Isovue-370 (76%)) 100 ml IVPUSH ONETIME ONE Stop: 07/31/20 08:27 Last Admin: 07/31/20 09:37 Dose: 100 ml Documented by: Potassium Chloride (Klor-Con M20) 40 meq PO ONETIME ONE Stop: 08/01/20 17:01 Potassium Chloride (Klor-Con M20) 40 meq PO ONETIME ONE Stop: 08/01/20 21:01 Last Admin: 08/01/20 21:54 Dose: 40 meq Documented by: Potassium Chloride (Klor-Con M20) 20 meq PO ONETIME ONE Stop: 08/01/20 21:52 Last Admin: 08/01/20 21:55 Dose: 20 meq Documented by: - Exam Quality Assessment: Supplemental Oxygen (High flow nasal cannula) General: Moderate Distress, Lethargic HEENT: Pupils Equal, Mucous Membr. Moist/[place]ck: Supple Lungs: Rales. No: Normal Respiratory Effort (Increased respiratory rate and effort) Cardiovascular: Regular Rate, Regular Rhythm GI/Abdominal Exam: Normal Bowel Sounds, Soft, Non-Tender, No Distention Extremities: Normal Inspection, Normal Range of Motion, Non-Tender, No Pedal Edema, Normal Capillary Refill Skin: Warm, Dry, Intact Psy/Mental Status: Alert, Normal Affect, Normal Mood Sepsis Event Note - Evaluation Sepsis Screening Result: No Definite Risk - Focused Exam Vital Signs: Vital Signs Temp Temp Pulse Resp BP Pulse Ox Pulse Ox 08/02/20 19:45 97.6 F 88 20 106/89 08/02/20 19:40 93 L 08/02/20 17:40 98.1 F 18 106/62 16 L 08/02/20 17:24 98.2 F 16 127/88 95 08/02/20 16:00 98.0 F 16 125/93 H 94 L 08/02/20 15:27 96 08/02/20 13:48 98.2 F 127/88 16 L 08/02/20 13:46 98.0 F 16 91/50 L 08/02/20 13:35 98.4 F 08/02/20 13:33 209.1 F H 16 91/53 L 08/02/20 12:00 98.2 F 16 104/54 L 92 L - Problem List & Annotations (1) Congestive heart failure SNOMED Code(s): 45787394 Code(s): I50.9 - HEART FAILURE, UNSPECIFIED Status: Acute Current Visit: Yes Qualifiers: Heart failure type: unspecified Heart failure chronicity: acute on chronic Qualified Code(s): I50.9 - Heart failure, unspecified (2) Hypoxemia SNOMED Code(s): 652186334 Code(s): R09.02 - HYPOXEMIA Status: Acute Current Visit: Yes (3) Pleural effusion SNOMED Code(s): 08383034 Code(s): J90 - PLEURAL EFFUSION, NOT ELSEWHERE CLASSIFIED Status: Acute Current Visit: Yes (4) COVID-19 virus detected SNOMED Code(s): 6464070118389276 Code(s): U07.1 - COVID-19 Status: Acute Current Visit: Yes (5) Anemia SNOMED Code(s): 900694731 Code(s): D64.9 - ANEMIA, UNSPECIFIED Status: Acute Current Visit: Yes (6) Prolonged Q-T interval on ECG SNOMED Code(s): 905579777 Code(s): R94.31 - ABNORMAL ELECTROCARDIOGRAM [ECG] [EKG] Status: Acute Current Visit: Yes - Problem List Review Problem List Initiated/Reviewed/Updated: Yes - My Orders Last 24 Hours: My Active Orders 08/02/20 06:00 Furosemide [Lasix] 20 mg IVPUSH Q6H 08/02/20 08:42 Transfuse PRBC [Transfuse Red Blood Cells] [COMM] Urgent 08/02/20 08:43 Verify Patient Consent Obtain [RC] ASDIRECTED 08/02/20 10:30 Sodium Chloride 0.9% [Normal Saline] 250 ml IV ASDIRECTED 08/02/20 Lunch Fluid Restriction [DIET] 08/02/20 20:00 Vancomycin 1 gm Vancomycin 250 mg Sodium Chloride 0.9% [Normal Saline] 250 ml IV Q18H - Plan Plan:: Assessment 85-year-old female discharged today from [facility] after being treated for COVID-19 presents to the emergency department with hypoxemia. COPD Exacerbation of CHF * Currently on Lasix 20 mg IV push every 6 hours * CT chest with contrast: * 1. No evidence of pulmonary emboli. * 2. Bilateral multifocal pulmonary groundglass opacities with interlobular septal thickening suggesting the "crazy paving" pattern. This pattern can be associated with acute interstitial pneumonia, adult respiratory distress syndrome, pulmonary edema, pulmonary hemorrhage, pneumonia, LVO are proteinosis, hypersensitivity pneumonitis, cryptogenic organizing pneumonia, chronic eosinophilic pneumonia, and bronchioloalveolar cell carcinoma. * Recent non-STEMI likely making heart failure worse * Albumin 1.6. This is likely also exacerbating her CHF. * Procalcitonin 0.06. Atrial fibrillation * Rate generally in the 80s * New onset and had significant bleed on anticoagulation Anemia * Hemoglobin dropped to 7.0. Patient has also very symptomatic today. * Patient has not had a bowel movement, therefore occult blood has not been done. * Review of her old records shows that she had new onset atrial fibrillation and started on heparin drip. Apparently she had significant blood loss that required transfusions and reversal of heparin. She developed a large hematoma on the right flank and surgery was consulted. No indication for I&D. Plan * ICU * Continue Lasix 20 mg IV every 6 hours today * Continue Zosyn and vancomycin * FiO2 to keep SPO2 between 88 and 94%. Currently on high flow nasal cannula. * Get stool for occult blood -pendingnot likely to be having an acute bleed * Recheck CBC, CMP, mag, Phos, D-dimer, CRP in the morning * Patient is considering comfort measures, therefore echo was not ordered * CODE STATUS DNR/DNI * VTE prophylaxis with SCDs.
[2020-08-03] MEDS: Piperacillin/Tazobactam 4.5 GM in Sodium Chloride 0.9% 100 ML IV SCH ×3 (05:21→20:37)
[2020-08-03] MEDS: Furosemide 20 MG/2 ML VIAL IVPUSH SCH ×3 (06:08→19:32)
[2020-08-03] MEDS: Tiotropium BR/Olodaterol HCL 4 GM Inhalation Spray 2.5mcg/1 dose; 10 doses INH SCH (08:11)
--- NOTE | 2020-08-03 09:10 | CR ---
PROCEDURE INFORMATION: Exam: XR Chest, 1 View Exam date and time: 08/03/2020 8:23 AM Age: 85 years old Clinical indication: Cardiovascular condition or disease; Congestive heart failure (chf); Cause unknown TECHNIQUE: Imaging protocol: XR of the chest Views: 1 view. COMPARISON: CR OR PCXR-No Charge-PICC/Central 07/31/2020 3:37 PM FINDINGS: Tubes, catheters and devices: There is a right jugular central line present with the tip in the right atrium. Lungs: There is bilateral interstitial airspace disease which can be due to interstitial pulmonary edema or pneumonitis. This is not significantly changed in the interval. Pleural space: There are bilateral pleural effusions which have enlarged in the interval. No pneumothorax. Heart/Mediastinum: The heart is partially silhouetted out but is felt to be enlarged. The mediastinal contours are unchanged. Vasculature: The thoracic aorta is atherosclerotic. Bones/joints: Multilevel disc degeneration in the thoracic spine. Bilateral glenohumeral joint osteoarthritis. IMPRESSION: 1. Enlargement of bilateral pleural effusions. 2. No significant change in bilateral pulmonary edema versus pneumonitis. Thank you for allowing us to participate in the care of your patient. Dictated and Authenticated by: Munir Arreguin MD 08/03/2020 10:05 AM Central Time ([place] & [place]) PATI
[2020-08-03] MEDS: rOPINIRole 1 MG Tab PO SCH ×2 (09:32→20:36)
[2020-08-03] MEDS: Rosuvastatin 10 MG Tab PO SCH (09:32)
[2020-08-03] MEDS: Lisinopril 10 MG Tab PO SCH (09:34)
[2020-08-03] MEDS: Nicotine 21 MG/24 Hr Patch TRDERM SCH (09:34)
[2020-08-03] MEDS: Metoprolol Succinate 25 MG Tab.ER PO SCH (09:35)
[2020-08-03] MEDS: Digoxin 125 MCG Tab PO SCH (09:35)
--- NOTE | 2020-08-03 21:19 | PCM.PN ---
- General Info Date of Service: 08/03/20 Admission Dx/Problem (Free Text): Admission Diagnosis/Problem Admission Diagnosis/Problem Hypoxia Subjective Update: Patient continues to be fatigued. She is on less O2 support. Appetite is poor. Functional Status: Reports: Pain Controlled - Review of Systems General: Reports: Fatigue Pulmonary: Reports: Shortness of Breath Cardiovascular: Reports: Dyspnea on Exertion Gastrointestinal: Reports: No Symptoms Musculoskeletal: Reports: No Symptoms - Patient Data Vitals - Most Recent: Last Vital Signs Temp 97.7 F 08/03/20 12:00 Pulse 83 08/03/20 12:00 Resp 28 H 08/03/20 20:00 BP 117/72 08/03/20 12:00 Pulse Ox 90 L 08/03/20 20:00 Weight - Most Recent: 145 lb I&O - Last 24 Hours: Intake & Output 08/03/20 08/03/20 08/03/20 06:59 14:59 22:59 Intake Total 350 430 350 Output Total 585 1900 1300 Balance -235 -8834 -950 Lab Results Last 24 Hours: Laboratory Results - last 24 hr 08/03/20 08/03/20 08/03/20 Range/Units 05:10 05:10 05:10 WBC 4.44 (3.98-10.04) K/mm3 RBC 3.36 L (3.98-5.22) M/mm3 Hgb 9.7 L D (11.2-15.7) gm/dl Hct 30.9 L (34.1-44.9) % MCV 92.0 D (79.4-94.8) fl MCH 28.9 (25.6-32.2) pg MCHC 31.4 L (32.2-35.5) g/dl RDW Std Deviation 49.4 H (36.4-46.3) fL Plt Count 143 L (182-369) K/mm3 MPV 10.9 (9.4-12.3) fl Neut % (Auto) 76.5 H (34.0-71.1) % Lymph % (Auto) 17.8 L (19.3-51.7) % [place] % (Auto) 4.3 L (4.7-12.5) % Eos % (Auto) 0.5 L (0.7-5.8) Baso % (Auto) 0.7 (0.1-1.2) % Neut # (Auto) 3.40 (1.56-6.13) K/mm3 Lymph # (Auto) 0.79 L (1.18-3.74) K/mm3 [place] # (Auto) 0.19 L (0.24-0.36) K/mm3 Eos # (Auto) 0.02 L (0.04-0.36) K/mm3 Baso # (Auto) 0.03 (0.01-0.08) K/mm3 Manual Slide Review Abnormal smear D-Dimer, Quantitative 4.44 H (0.19-0.50) mg/L Sodium 142 (136-145) mEq/L Potassium 3.7 (3.5-5.1) mEq/L Chloride 105 (98-107) mEq/L Carbon Dioxide 35 H (21-32) mEq/L Anion Gap 5.7 (5-15) BUN 17 (7-18) mg/dL Creatinine 0.7 (0.55-1.02) mg/dL Est Cr Clr Drug Dosing 58.19 mL/min Estimated GFR (MDRD) > 60 (>60) mL/min BUN/Creatinine Ratio 24.3 H (14-18) Glucose 86 (83-115) mg/dL Calcium 7.9 L (8.5-10.1) mg/dL Phosphorus 2.8 (2.6-4.7) mg/dL Magnesium 2.0 (1.8-2.4) mg/dl Total Bilirubin 1.4 H (0.2-1.0) mg/dL AST 32 (15-37) U/L ALT 34 (14-59) U/L Alkaline Phosphatase 54 (46-116) U/L C-Reactive Protein 15.4 H* (<1.0) mg/dL Total Protein 5.5 L (6.4-8.2) g/dl Albumin 1.8 L (3.4-5.0) g/dl Globulin 3.7 gm/dL Albumin/Globulin Ratio 0.5 L (1-2) Efe Results Last 24 Hours: Microbiology 08/03/20 19:20 Occult Blood - Final Stool / Feces 07/31/20 11:23 Aerobic Blood Culture - Preliminary Blood - Venous - Lab Draw NO GROWTH AFTER 3 DAYS Anaerobic Blood Culture - Preliminary NO GROWTH AFTER 3 DAYS 11/15/20 11:15 Aerobic Blood Culture - Preliminary Blood - Venous NO GROWTH AFTER 3 DAYS Anaerobic Blood Culture - Preliminary NO GROWTH AFTER 3 DAYS Med Orders - Current: Current Medications Acetaminophen (Tylenol) 650 mg PO Q4H PRN PRN Reason: Pain (Mild 1-3)/fever Digoxin (Lanoxin) 125 mcg PO DAILY [facility] Last Admin: 08/03/20 09:35 Dose: 125 mcg Documented by: Furosemide (Lasix) 20 mg IVPUSH Q6H [facility] Last Admin: 08/03/20 19:32 Dose: 20 mg Documented by: Piperacillin Sod/Tazobactam (Sod 4.5 gm/ Sodium Chloride) 100 mls @ 25 mls/hr IV Q8H [facility] Stop: 08/05/20 10:00 Last Admin: 08/03/20 20:37 Dose: 25 mls/hr Documented by: Sodium Chloride (Normal Saline) 250 mls @ 25 mls/hr IV ASDIRECTED [facility] Vancomycin HCl 1 gm/Vancomycin HCl 250 mg/ Sodium Chloride 250 mls @ 166.667 mls/hr IV Q18H [facility] Stop: 08/05/20 05:00 Last Admin: 08/03/20 14:15 Dose: 166.667 mls/hr Documented by: Lisinopril (Prinivil) 10 mg PO DAILY [facility] Last Admin: 08/03/20 09:34 Dose: 10 mg Documented by: Metoprolol Succinate (Toprol Xl) 12.5 mg PO DAILY [facility] Last Admin: 08/03/20 09:35 Dose: 12.5 mg Documented by: Nitroglycerin (Nitrostat) 0.4 mg SL ASDIRECTED PRN PRN Reason: Chest Pain Ondansetron HCl (Zofran) 4 mg IV Q4H PRN PRN Reason: Nausea/Vomiting Ropinirole HCl (Requip) 2 mg PO BID [facility] Last Admin: 08/03/20 20:36 Dose: 2 mg Documented by: Rosuvastatin Calcium (Crestor) 10 mg PO DAILY [facility] Last Admin: 08/03/20 09:32 Dose: 10 mg Documented by: Sodium Chloride (Saline Flush) 10 ml FLUSH ONETIME PRN PRN Reason: Keep Vein Open Last Admin: 07/31/20 09:37 Dose: 10 ml Documented by: Vancomycin HCl (Pharmacy To Dose - Vancomycin) 1 dose .XX ASDIRECTED PRN PRN Reason: RX TO DOSE VANCO Discontinued Medications Enoxaparin Sodium (Lovenox) 40 mg SUBCUT DAILY [facility] Last Admin: 07/30/20 18:05 Dose: Not Given Documented by: Enoxaparin Sodium (Lovenox) 40 mg SUBCUT DAILY@1800 [facility] Last Admin: 07/30/20 18:05 Dose: 40 mg Documented by: Furosemide (Lasix) 20 mg IVPUSH ONETIME ONE Stop: 07/30/20 00:16 Last Admin: 07/30/20 00:39 Dose: 20 mg Documented by: Furosemide (Lasix) 20 mg IVPUSH ONETIME ONE Stop: 07/30/20 11:30 Last Admin: 07/30/20 12:13 Dose: 20 mg Documented by: Furosemide (Lasix) 20 mg IVPUSH ONETIME ONE Stop: 07/30/20 19:52 Last Admin: 07/30/20 21:42 Dose: 20 mg Documented by: Furosemide (Lasix) 20 mg IVPUSH Q6H [facility] Stop: 07/31/20 17:01 Last Admin: 07/31/20 11:20 Dose: 20 mg Documented by: Sodium Chloride (Normal Saline) 1,000 mls @ 500 mls/hr IV ASDIRECTED [facility] Last Admin: 07/29/20 21:20 Dose: 500 mls/hr Documented by: Sodium Chloride (Normal Saline) 1,000 mls @ 75 mls/hr IV ASDIRECTED [facility] Last Admin: 07/31/20 11:26 Dose: 75 mls/hr Documented by: Albumin Human (Flexbumin 25%) 12.5 gm in 50 mls @ 100 mls/hr IV Q6H [facility] Stop: 07/31/20 17:29 Last Admin: 07/31/20 16:10 Dose: 100 mls/hr Documented by: Piperacillin Sod/Tazobactam (Sod 4.5 gm/ Sodium Chloride) 100 mls @ 25 mls/hr IV Q8H [facility] Last Admin: 08/01/20 06:03 Dose: 25 mls/hr Documented by: Piperacillin Sod/Tazobactam (Sod 4.5 gm/ Sodium Chloride) 100 mls @ 200 mls/hr IV ONETIME ONE Stop: 07/31/20 11:18 Last Admin: 07/31/20 11:14 Dose: 200 mls/hr Documented by: Vancomycin HCl 1 gm/ Sodium (Chloride) 250 mls @ 250 mls/hr IV Q24H [facility] Last Admin: 07/31/20 13:05 Dose: 250 mls/hr Documented by: Furosemide 100 mg/ Sodium (Chloride) 100 mls @ 4 mls/hr IV TITRATE [facility]; Protocol Last Titration: 08/01/20 17:52 Dose: Infused Documented by: Vancomycin HCl 1 gm/ Sodium (Chloride) 250 mls @ 250 mls/hr IV Q18H [facility] Last Admin: 08/02/20 01:10 Dose: 250 mls/hr Documented by: Potassium Chloride 10 meq/ (Premix) 100 mls @ 100 mls/hr IV Q1H [facility] Stop: 08/01/20 13:29 Last Admin: 08/01/20 12:03 Dose: 100 mls/hr Documented by: Vancomycin HCl 1 gm/Vancomycin HCl 250 mg/ Sodium Chloride 250 mls @ 250 mls/hr IV Q18H [facility] Last Admin: 08/02/20 21:26 Dose: 250 mls/hr Documented by: Iopamidol (Isovue-370 (76%)) 100 ml IVPUSH ONETIME ONE Stop: 07/31/20 08:27 Last Admin: 07/31/20 09:37 Dose: 100 ml Documented by: Miscellaneous Information (Remove Patch) 1 ea TRDERM DAILY [facility] Last Admin: 08/03/20 09:39 Dose: Not Given Documented by: Nicotine (Habitrol) 21 mg TRDERM DAILY [facility] Last Admin: 08/03/20 09:34 Dose: Not Given Documented by: Potassium Chloride (Klor-Con M20) 40 meq PO ONETIME ONE Stop: 08/01/20 17:01 Potassium Chloride (Klor-Con M20) 40 meq PO ONETIME ONE Stop: 08/01/20 21:01 Last Admin: 08/01/20 21:54 Dose: 40 meq Documented by: Potassium Chloride (Klor-Con M20) 20 meq PO ONETIME ONE Stop: 08/01/20 21:52 Last Admin: 08/01/20 21:55 Dose: 20 meq Documented by: Potassium Chloride (Klor-Con M20) 40 meq PO ONETIME ONE Stop: 08/02/20 21:28 Last Admin: 08/02/20 22:17 Dose: 40 meq Documented by: - Exam Quality Assessment: Supplemental Oxygen (High flow nasal cannula), Urine Catheter General: Alert, Moderate Distress HEENT: Pupils Equal, Mucous Membr. Moist/[place] Neck: Supple Lungs: Decreased Breath Sounds, Crackles (Scattered). No: Normal Respiratory Effort (Increased respiratory rate and effort) Cardiovascular: Regular Rate, Regular Rhythm GI/Abdominal Exam: Normal Bowel Sounds, Non-Tender, No Distention Extremities: Normal Inspection, Non-Tender, No Pedal Edema, Normal Capillary Refill Skin: Warm, Dry, Intact Neurological: No New Focal Deficit Psy/Mental Status: Alert, Normal Affect, Normal Mood Sepsis Event Note - Evaluation Sepsis Screening Result: No Definite Risk - Focused Exam Vital Signs: Vital Signs Temp Pulse Pulse Resp BP BP Pulse Ox 08/03/20 20:00 28 H 90 L 08/03/20 12:00 97.7 F 83 21 H 117/72 94 L 08/03/20 09:35 83 112/68 08/03/20 09:34 112/68 - Problem List & Annotations (1) Congestive heart failure SNOMED Code(s): 69848867 Code(s): I50.9 - HEART FAILURE, UNSPECIFIED Status: Acute Current Visit: Yes Qualifiers: Heart failure type: unspecified Heart failure chronicity: acute on chronic Qualified Code(s): I50.9 - Heart failure, unspecified (2) Hypoxemia SNOMED Code(s): 466050397 Code(s): R09.02 - HYPOXEMIA Status: Acute Current Visit: Yes (3) Pleural effusion SNOMED Code(s): 92679425 Code(s): J90 - PLEURAL EFFUSION, NOT ELSEWHERE CLASSIFIED Status: Acute Current Visit: Yes (4) COVID-19 virus detected SNOMED Code(s): 7279107888985788 Code(s): U07.1 - COVID-19 Status: Acute Current Visit: Yes (5) Anemia SNOMED Code(s): 821689756 Code(s): D64.9 - ANEMIA, UNSPECIFIED Status: Acute Current Visit: Yes (6) Prolonged Q-T interval on ECG SNOMED Code(s): 418070682 Code(s): R94.31 - ABNORMAL ELECTROCARDIOGRAM [ECG] [EKG] Status: Acute Current Visit: Yes - Problem List Review Problem List Initiated/Reviewed/Updated: Yes - My Orders Last 24 Hours: My Active Orders 08/03/20 10:39 Patient Status [ADT] Routine 08/03/20 10:41 OT Evaluation and Treatment [CONS] Routine PT Evaluation and Treatment [CONS] Routine 08/03/20 14:00 Vancomycin 1 gm Vancomycin 250 mg Sodium Chloride 0.9% [Normal Saline] 250 ml IV Q18H 08/03/20 16:49 Acapella [RT Chest Physiotherapy] [RC] ASDIRECTED Incentive Spirometry [RT Incentive Spirometry] [RC] Q2HWA - Plan Plan:: Assessment 85-year-old female discharged today from [facility] in [place] after being treated for COVID-19 presents to the emergency department with hypoxemia. COPD Exacerbation of CHF * Worsening pleural effusions and chest x-ray with improved oxygenation * Continues on high flow nasal cannula with high level of support. * Currently on Lasix 20 mg IV push every 6 hours * Improving diuresis * CT chest with contrast: * 1. No evidence of pulmonary emboli. * 2. Bilateral multifocal pulmonary ground glass opacities with interlobular septal thickening suggesting the "crazy paving" pattern. This pattern can be associated with acute interstitial pneumonia, adult respiratory distress syndrome, pulmonary edema, pulmonary hemorrhage, pneumonia, LVO are proteinosis, hypersensitivity pneumonitis, cryptogenic organizing pneumonia, chronic eosinophilic pneumonia, and bronchioloalveolar cell carcinoma. * Recent non-STEMI likely making heart failure worse * Albumin 1.8. This is likely also exacerbating her CHF. * Procalcitonin 0.06. Atrial fibrillation * Rate generally in the 80s * New onset and had significant bleed on anticoagulation Anemia * Hemoccult stool was positive * Hemoglobin dropped to 7.0 and given 2 units packed red blood cells yesterday. Hemoglobin 9.7 this morning. * Review of her old records shows that she had new onset atrial fibrillation and started on heparin drip. Apparently she had significant blood loss that required transfusions and reversal of heparin. She developed a large hematoma on the right flank and surgery was consulted. No indication for I&D. I spoke with patient's son who is the power of contract attorney, Barak Ernst, they are considering comfort measures, but today it sounds like the comfort measures were because they wanted her to have visitors. We moved her to the floor so she could see people through the window and possibly have one person visit her. Plan * Moved to medical surgical floor * Continue Lasix 20 mg IV every 6 hours and reevaluate in the morning * Continue Zosyn and vancomycin discontinue after 5 days * FiO2 to keep SPO2 between 88 and 94%. Currently on high flow nasal cannula. * Recheck CBC, CMP, mag, Phos, D-dimer, CRP in the morning * Patient is considering comfort measures, therefore echo was not ordered * CODE STATUS DNR/DNI * VTE prophylaxis with SCDs.
[2020-08-04] MEDS: Furosemide 20 MG/2 ML VIAL IVPUSH SCH ×4 (00:25→18:47)
[2020-08-04] MEDS: Piperacillin/Tazobactam 4.5 GM in Sodium Chloride 0.9% 100 ML IV SCH ×2 (04:50→12:55)
--- NOTE | 2020-08-04 08:22 | PCM.PN ---
- General Info Date of Service: 08/04/20 Admission Dx/Problem (Free Text): Admission Diagnosis/Problem Admission Diagnosis/Problem Hypoxia Subjective Update: She did not sleep well night due to restlessness. She was on and off. She is on high flow at 10L with 50% FiO2. Appetite remains poor. She is also weak and tired. Functional Status: Reports: Pain Controlled - Review of Systems General: Denies: Fever HEENT: Reports: No Symptoms Pulmonary: Reports: Shortness of Breath, Wheezing Cardiovascular: Reports: No Symptoms Gastrointestinal: Reports: Decreased Appetite. Denies: Abdominal Pain, Nausea, Vomiting Genitourinary: Denies: Retention Musculoskeletal: Denies: Back Pain Skin: Denies: Rash Neurological: Denies: Confusion Psychiatric: Denies: Depression, Anxiety - Patient Data Vitals - Most Recent: Last Vital Signs Temp 36.4 C 08/04/20 04:19 Pulse 76 08/04/20 04:19 Resp 20 08/04/20 04:19 BP 118/62 08/04/20 04:19 Pulse Ox 100 08/04/20 05:38 Weight - Most Recent: 65.181 kg I&O - Last 24 Hours: Intake & Output 08/03/20 08/04/20 08/04/20 22:59 06:59 14:59 Intake Total 500 250 Output Total 1475 675 Balance -975 -425 Efe Results Last 24 Hours: Microbiology 08/03/20 19:20 Occult Blood - Final Stool / Feces 07/31/20 11:23 Aerobic Blood Culture - Preliminary Blood - Venous - Lab Draw NO GROWTH AFTER 3 DAYS Anaerobic Blood Culture - Preliminary NO GROWTH AFTER 3 DAYS 07/31/20 11:15 Aerobic Blood Culture - Preliminary Blood - Venous NO GROWTH AFTER 3 DAYS Anaerobic Blood Culture - Preliminary NO GROWTH AFTER 3 DAYS Med Orders - Current: Current Medications Acetaminophen (Tylenol) 650 mg PO Q4H PRN PRN Reason: Pain (Mild 1-3)/fever Digoxin (Lanoxin) 125 mcg PO DAILY [facility] Last Admin: 08/03/20 09:35 Dose: 125 mcg Documented by: Furosemide (Lasix) 20 mg IVPUSH Q6H [facility] Last Admin: 08/04/20 06:05 Dose: 20 mg Documented by: Piperacillin Sod/Tazobactam (Sod 4.5 gm/ Sodium Chloride) 100 mls @ 25 mls/hr IV Q8H [facility] Stop: 08/05/20 10:00 Last Admin: 08/04/20 04:50 Dose: 25 mls/hr Documented by: Vancomycin HCl 1 gm/Vancomycin HCl 250 mg/ Sodium Chloride 250 mls @ 166.667 mls/hr IV Q18H [facility] Stop: 08/05/20 05:00 Last Admin: 08/03/20 14:15 Dose: 166.667 mls/hr Documented by: Lisinopril (Prinivil) 10 mg PO DAILY [facility] Last Admin: 08/03/20 09:34 Dose: 10 mg Documented by: Metoprolol Succinate (Toprol Xl) 12.5 mg PO DAILY [facility] Last Admin: 08/03/20 09:35 Dose: 12.5 mg Documented by: Nitroglycerin (Nitrostat) 0.4 mg SL ASDIRECTED PRN PRN Reason: Chest Pain Ondansetron HCl (Zofran) 4 mg IV Q4H PRN PRN Reason: Nausea/Vomiting Ropinirole HCl (Requip) 2 mg PO BID [facility] Last Admin: 08/03/20 20:36 Dose: 2 mg Documented by: Rosuvastatin Calcium (Crestor) 10 mg PO DAILY [facility] Last Admin: 08/03/20 09:32 Dose: 10 mg Documented by: Sodium Chloride (Saline Flush) 10 ml FLUSH ONETIME PRN PRN Reason: Keep Vein Open Last Admin: 07/31/20 09:37 Dose: 10 ml Documented by: Vancomycin HCl (Pharmacy To Dose - Vancomycin) 1 dose .XX ASDIRECTED PRN PRN Reason: RX TO DOSE VANCO Discontinued Medications Enoxaparin Sodium (Lovenox) 40 mg SUBCUT DAILY [facility] Last Admin: 07/30/20 18:05 Dose: Not Given Documented by: Enoxaparin Sodium (Lovenox) 40 mg SUBCUT DAILY@1800 [facility] Last Admin: 07/30/20 18:05 Dose: 40 mg Documented by: Furosemide (Lasix) 20 mg IVPUSH ONETIME ONE Stop: 07/30/20 00:16 Last Admin: 07/30/20 00:39 Dose: 20 mg Documented by: Furosemide (Lasix) 20 mg IVPUSH ONETIME ONE Stop: 07/30/20 11:30 Last Admin: 07/30/20 12:13 Dose: 20 mg Documented by: Furosemide (Lasix) 20 mg IVPUSH ONETIME ONE Stop: 07/30/20 19:52 Last Admin: 07/30/20 21:42 Dose: 20 mg Documented by: Furosemide (Lasix) 20 mg IVPUSH Q6H [facility] Stop: 07/31/20 17:01 Last Admin: 07/31/20 11:20 Dose: 20 mg Documented by: Sodium Chloride (Normal Saline) 1,000 mls @ 500 mls/hr IV ASDIRECTED [facility] Last Admin: 07/29/20 21:20 Dose: 500 mls/hr Documented by: Sodium Chloride (Normal Saline) 1,000 mls @ 75 mls/hr IV ASDIRECTED [facility] Last Admin: 07/31/20 11:26 Dose: 75 mls/hr Documented by: Albumin Human (Flexbumin 25%) 12.5 gm in 50 mls @ 100 mls/hr IV Q6H [facility] Stop: 07/31/20 17:29 Last Admin: 07/31/20 16:10 Dose: 100 mls/hr Documented by: Piperacillin Sod/Tazobactam (Sod 4.5 gm/ Sodium Chloride) 100 mls @ 25 mls/hr IV Q8H [facility] Last Admin: 08/01/20 06:03 Dose: 25 mls/hr Documented by: Piperacillin Sod/Tazobactam (Sod 4.5 gm/ Sodium Chloride) 100 mls @ 200 mls/hr IV ONETIME ONE Stop: 07/31/20 11:18 Last Admin: 07/31/20 11:14 Dose: 200 mls/hr Documented by: Vancomycin HCl 1 gm/ Sodium (Chloride) 250 mls @ 250 mls/hr IV Q24H [facility] Last Admin: 07/31/20 13:05 Dose: 250 mls/hr Documented by: Furosemide 100 mg/ Sodium (Chloride) 100 mls @ 4 mls/hr IV TITRATE [facility]; Protocol Last Titration: 08/01/20 17:52 Dose: Infused Documented by: Vancomycin HCl 1 gm/ Sodium (Chloride) 250 mls @ 250 mls/hr IV Q18H [facility] Last Admin: 08/02/20 01:10 Dose: 250 mls/hr Documented by: Potassium Chloride 10 meq/ (Premix) 100 mls @ 100 mls/hr IV Q1H [facility] Stop: 11/16/20 13:29 Last Admin: 08/01/20 12:03 Dose: 100 mls/hr Documented by: Sodium Chloride (Normal Saline) 250 mls @ 25 mls/hr IV ASDIRECTED [facility] Vancomycin HCl 1 gm/Vancomycin HCl 250 mg/ Sodium Chloride 250 mls @ 250 mls/hr IV Q18H [facility] Last Admin: 08/02/20 21:26 Dose: 250 mls/hr Documented by: Iopamidol (Isovue-370 (76%)) 100 ml IVPUSH ONETIME ONE Stop: 07/31/20 08:27 Last Admin: 07/31/20 09:37 Dose: 100 ml Documented by: Miscellaneous Information (Remove Patch) 1 ea TRDERM DAILY [facility] Last Admin: 08/03/20 09:39 Dose: Not Given Documented by: Nicotine (Habitrol) 21 mg TRDERM DAILY [facility] Last Admin: 08/03/20 09:34 Dose: Not Given Documented by: Potassium Chloride (Klor-Con M20) 40 meq PO ONETIME ONE Stop: 08/01/20 17:01 Potassium Chloride (Klor-Con M20) 40 meq PO ONETIME ONE Stop: 08/01/20 21:01 Last Admin: 08/01/20 21:54 Dose: 40 meq Documented by: Potassium Chloride (Klor-Con M20) 20 meq PO ONETIME ONE Stop: 08/01/20 21:52 Last Admin: 08/01/20 21:55 Dose: 20 meq Documented by: Potassium Chloride (Klor-Con M20) 40 meq PO ONETIME ONE Stop: 08/02/20 21:28 Last Admin: 08/02/20 22:17 Dose: 40 meq Documented by: - Exam Quality Assessment: Supplemental Oxygen General: Cooperative, Lethargic, Other (on high flow O2). No: Alert HEENT: Pupils Equal, Pupils Reactive, Mucous Membr. Moist/[place] Neck: Supple Lungs: Decreased Breath Sounds, Wheezing Cardiovascular: Regular Rate, Regular Rhythm GI/Abdominal Exam: Normal Bowel Sounds, Soft, Non-Tender, No Organomegaly, No Distention, No Abnormal Bruit (Female) Exam: Deferred Back Exam: Normal Inspection Extremities: Normal Inspection, Normal Range of Motion, Non-Tender Peripheral Pulses: 2+: Dorsalis Pedis (L), Dorsalis Pedis (R) Skin: Warm, Dry, Intact, Ecchymosis (right flank and into her breast) Psy/Mental Status: Normal Mood. No: Alert, Normal Affect, Agitated Sepsis Event Note - Evaluation Sepsis Screening Result: No Definite Risk - Focused Exam Vital Signs: Vital Signs Temp Temp Pulse Pulse Pulse Resp BP 08/04/20 05:38 08/04/20 04:19 36.4 C 76 20 118/62 08/04/20 03:16 36.4 C 76 08/04/20 00:21 08/04/20 00:01 37.1 C 76 24 H 113/61 08/04/20 00:00 37.1 C 76 24 H 08/03/20 22:13 BP Pulse Ox Pulse Ox 08/04/20 05:38 100 08/04/20 04:19 90 L 08/04/20 03:16 118/62 90 L 08/04/20 00:21 94 L 08/04/20 00:01 92 L 08/04/20 00:00 113/61 92 L 08/03/20 22:13 92 L - Problem List Review Problem List Initiated/Reviewed/Updated: Yes - Plan Plan:: Assessment 85-year-old female discharged today from [facility] in [place] after being treated for COVID-19 presents to the emergency department with hypoxemia. Acute: COPD Exacerbation, Improved Viral Pneumonitis vs Atypical Pneumonia * Recent COVID 19 Infection * IV Zosyn and Vancomycin for atypical Query Protracted COVID-19 Infection Acute hypoxic and hypercapneic Respiratory Failure * On high flow at 10L with 40-50% FiO2 Exacerbation of CHF * Worsening pleural effusions on chest x-ray * Has been on high flow * Continue Lasix 20 mg IV push every 6 hours * CT chest with contrast: * 1. No evidence of pulmonary emboli. * 2. Bilateral multifocal pulmonary ground glass opacities with interlobular septal thickening suggesting the "crazy paving" pattern. This pattern can be associated with acute interstitial pneumonia, adult respiratory distress syndrome, pulmonary edema, pulmonary hemorrhage, pneumonia, LVO are proteinosis, hypersensitivity pneumonitis, cryptogenic organizing pneumonia, chronic eosinophilic pneumonia, and bronchioloalveolar cell carcinoma. * Recent non-STEMI likely making heart failure worse * Albumin 1.8. This is likely also exacerbating her CHF * Procalcitonin 0.06. * Recent weight reveals a gain of 2lbs Paroxysmal Atrial fibrillation * Rate is controlled in the 70-80s * No Digoxin and Metoprolol * SCDs for Stroke prophylaxis due to GI Bleed * New onset and had significant bleed on anticoagulation Normocytic Hypochromic Anemia * Hemoccult stool was positive * Hemoglobin dropped to 7.0 and given 2 units packed red blood cells yesterday. Hemoglobin 9.7 this morning. * Review of her old records shows that she had new onset atrial fibrillation and started on heparin drip. Apparently she had significant blood loss that required transfusions and reversal of heparin. She developed a large hematoma on the right flank and surgery was consulted. No indication for I&D. Elevated D-Dimer * Chest CTA- negative for PE Mild Thrombocytopenia Elevated CRP Hypoalbuminemia Generalized Weakness End of Life Care * Family has elected to make her comfort measures Plan: * Patient continue to do poorly * Continue Lasix 20 mg IV every 6 hours for diuresis * Continue Zosyn and vancomycin discontinue after 5 days * FiO2 to keep SPO2 between 88 and 94%. Currently on high flow nasal cannula. * Discontinue routine AM labs if family decides comfort measures * CODE STATUS DNR/DNI * VTE prophylaxis with SCDs. Spoke to her 2 sons. They wants her comfort measures and would like all family to her tomorrow. We will do partial comfort measures and keep her on high flow. Once all family members able to visit her at beside, we will convert to full comfort measures and switch her to supplemental O2. We will go ahead and discontinue intravenous antibiotics.
[2020-08-04] MEDS: Tiotropium BR/Olodaterol HCL 4 GM Inhalation Spray 2.5mcg/1 dose; 10 doses INH SCH (08:49)
[2020-08-04] MEDS: Metoprolol Succinate 25 MG Tab.ER PO SCH (08:52)
[2020-08-04] MEDS: Rosuvastatin 10 MG Tab PO SCH (08:53)
[2020-08-04] MEDS: Lisinopril 10 MG Tab PO SCH (08:54)
[2020-08-04] MEDS: rOPINIRole 1 MG Tab PO SCH ×2 (08:55→20:12)
[2020-08-04] MEDS: Digoxin 125 MCG Tab PO SCH (08:55)
[2020-08-04] MEDS ORDERED: LORazepam 2 MG/ML SDV IVPUSH PRN (12:24)
[2020-08-04] MEDS ORDERED: Lidocaine 1% 10 ML MDV ONE (18:05)
[2020-08-04] MEDS ORDERED: Lidocaine 1% 10 ML MDV INJECT ONE (18:05)
[2020-08-04] MEDS ORDERED: HYDROmorphone 0.5 MG/0.5 ML Syringe ONE (18:08)
[2020-08-04] MEDS ORDERED: HYDROmorphone 0.5 MG/0.5 ML Syringe IVPUSH ONE (18:08)
--- NOTE | 2020-08-04 18:21 | PCM.PRNOTE ---
- Free Text/Narrative Note: DATE OF PROCEDURE: 08/04/2020 PREOPERATIVE DIAGNOSIS: Right Sided Pleural Effusion POSTOPERATIVE DIAGNOSIS: Right Sided Pleural Effusion PROCEDURE PERFORMED: U/S Guided Diagnostic and Therapeutic Right Sided Thoracentesis SURGEON: Charlette Beard DO DESCRIPTION OF PROCEDURE: After informed consent was obtained, signed, the patient had ultrasound localization in the right hemithorax. The patient was sterilely prepped and topical lidocaine was induced. Stab incision was made and a thoracentesis catheter was inserted and 560 mL of clear taurus fluid was obtained without difficulty. Estimated Blood Loss: Minimal The patient tolerated the procedure well w/o any complications. Postprocedure chest x-ray is pending.
--- NOTE | 2020-08-05 07:09 | PCM.PN ---
- General Info Date of Service: 08/05/20 Admission Dx/Problem (Free Text): Admission Diagnosis/Problem Admission Diagnosis/Problem Hypoxia Subjective Update: No overnight or acute issues. She looks totally different this morning. She is more alert, awake, and very engaging this morning. She is sitting upright and comfortably eating her breakfast. Functional Status: Reports: Pain Controlled, Tolerating Diet, Ambulating, Urinating - Review of Systems General: Denies: Fever, Chills HEENT: Reports: No Symptoms Pulmonary: Reports: Shortness of Breath Cardiovascular: Denies: Chest Pain Gastrointestinal: Denies: Abdominal Pain, Nausea, Vomiting Genitourinary: Reports: No Symptoms Musculoskeletal: Denies: Back Pain Skin: Denies: Rash Neurological: Denies: Confusion Psychiatric: Denies: Depression, Anxiety - Patient Data Vitals - Most Recent: Last Vital Signs Temp 36.6 C 08/04/20 20:04 Pulse 91 08/04/20 20:04 Resp 20 08/04/20 20:04 BP 89/67 L 08/05/20 05:30 Pulse Ox 99 08/05/20 06:09 Weight - Most Recent: 65.181 kg I&O - Last 24 Hours: Intake & Output 08/04/20 08/05/20 08/05/20 22:59 06:59 14:59 Intake Total 390 100 Output Total 775 550 Balance -385 -450 Lab Results Last 24 Hours: Laboratory Results - last 24 hr 08/04/20 08/05/20 Range/Units 19:00 05:36 Total Protein 6.0 L (6.4-8.2) g/dl Body Fluid Site Right pleura Fluid Type Pleural fluid Fluid Volume 550 ML Fluid Color Yellow Fluid Appearance Slightly cloudy Fluid pH 8 (4.5-10.0) Fluid WBC 0.49 (0.20-0.60) k/mm*3 Fluid RBC 0.003 (0.00-0.010) 10*6/uL Fluid Diff Comment Not Reportable Fluid Seg Neutrophils 12.0 (0-25) % Fluid Lymphocytes 17.0 (0-78) % Fl Polymorphonucl Cell Not Reportable Fluid Macrophages 71 Fluid Glucose 131 mg/dL Fluid Total Protein 2.9 gm/dl Fluid LDH 309 U/L Efe Results Last 24 Hours: Microbiology 08/04/20 19:00 Gram Stain - Preliminary Pleural Fluid 08/04/20 19:00 JACKELIN Preparation - Final Other - Pleural Cavity, Right 07/31/20 11:23 Aerobic Blood Culture - Preliminary Blood - Venous - Lab Draw NO GROWTH AFTER 4 DAYS Anaerobic Blood Culture - Preliminary NO GROWTH AFTER 4 DAYS 07/31/20 11:15 Aerobic Blood Culture - Preliminary Blood - Venous NO GROWTH AFTER 4 DAYS Anaerobic Blood Culture - Preliminary NO GROWTH AFTER 4 DAYS Med Orders - Current: Current Medications Acetaminophen (Tylenol) 650 mg PO Q4H PRN PRN Reason: Pain (Mild 1-3)/fever Digoxin (Lanoxin) 125 mcg PO DAILY [facility] Last Admin: 08/04/20 08:55 Dose: 125 mcg Documented by: Lisinopril (Prinivil) 10 mg PO DAILY [facility] Last Admin: 08/04/20 08:54 Dose: 10 mg Documented by: Lorazepam (Ativan) 0.25 mg IVPUSH Q4H PRN PRN Reason: comfort measures Metoprolol Succinate (Toprol Xl) 12.5 mg PO DAILY [facility] Last Admin: 08/04/20 08:52 Dose: 12.5 mg Documented by: Nitroglycerin (Nitrostat) 0.4 mg SL ASDIRECTED PRN PRN Reason: Chest Pain Ondansetron HCl (Zofran) 4 mg IV Q4H PRN PRN Reason: Nausea/Vomiting Ropinirole HCl (Requip) 2 mg PO BID [facility] Last Admin: 08/04/20 20:12 Dose: 2 mg Documented by: Rosuvastatin Calcium (Crestor) 10 mg PO DAILY [facility] Last Admin: 08/04/20 08:53 Dose: 10 mg Documented by: Sodium Chloride (Saline Flush) 10 ml FLUSH ONETIME PRN PRN Reason: Keep Vein Open Last Admin: 07/31/20 09:37 Dose: 10 ml Documented by: Vancomycin HCl (Pharmacy To Dose - Vancomycin) 1 dose .XX ASDIRECTED PRN PRN Reason: RX TO DOSE VANCO Discontinued Medications Enoxaparin Sodium (Lovenox) 40 mg SUBCUT DAILY [facility] Last Admin: 07/30/20 18:05 Dose: Not Given Documented by: Enoxaparin Sodium (Lovenox) 40 mg SUBCUT DAILY@1800 [facility] Last Admin: 07/30/20 18:05 Dose: 40 mg Documented by: Furosemide (Lasix) 20 mg IVPUSH ONETIME ONE Stop: 07/30/20 00:16 Last Admin: 07/30/20 00:39 Dose: 20 mg Documented by: Furosemide (Lasix) 20 mg IVPUSH ONETIME ONE Stop: 07/30/20 11:30 Last Admin: 07/30/20 12:13 Dose: 20 mg Documented by: Furosemide (Lasix) 20 mg IVPUSH ONETIME ONE Stop: 07/30/20 19:52 Last Admin: 07/30/20 21:42 Dose: 20 mg Documented by: Furosemide (Lasix) 20 mg IVPUSH Q6H [facility] Stop: 07/31/20 17:01 Last Admin: 07/31/20 11:20 Dose: 20 mg Documented by: Furosemide (Lasix) 20 mg IVPUSH Q6H [facility] Last Admin: 08/04/20 18:47 Dose: Not Given Documented by: Hydromorphone HCl (Dilaudid) Confirm Administered Dose 0.5 mg .ROUTE .STK-MED ONE Stop: 08/04/20 18:09 Last Admin: 08/04/20 18:25 Dose: 0.5 mg Documented by: Hydromorphone HCl (Dilaudid) 0.5 mg IVPUSH ONETIME ONE Stop: 08/04/20 18:09 Last Admin: 08/04/20 19:43 Dose: Not Given Documented by: Sodium Chloride (Normal Saline) 1,000 mls @ 500 mls/hr IV ASDIRECTED [facility] Last Admin: 07/29/20 21:20 Dose: 500 mls/hr Documented by: Sodium Chloride (Normal Saline) 1,000 mls @ 75 mls/hr IV ASDIRECTED [facility] Last Admin: 07/31/20 11:26 Dose: 75 mls/hr Documented by: Albumin Human (Flexbumin 25%) 12.5 gm in 50 mls @ 100 mls/hr IV Q6H [facility] Stop: 07/31/20 17:29 Last Admin: 07/31/20 16:10 Dose: 100 mls/hr Documented by: Piperacillin Sod/Tazobactam (Sod 4.5 gm/ Sodium Chloride) 100 mls @ 25 mls/hr IV Q8H [facility] Last Admin: 08/01/20 06:03 Dose: 25 mls/hr Documented by: Piperacillin Sod/Tazobactam (Sod 4.5 gm/ Sodium Chloride) 100 mls @ 200 mls/hr IV ONETIME ONE Stop: 07/31/20 11:18 Last Admin: 07/31/20 11:14 Dose: 200 mls/hr Documented by: Vancomycin HCl 1 gm/ Sodium (Chloride) 250 mls @ 250 mls/hr IV Q24H [facility] Last Admin: 07/31/20 13:05 Dose: 250 mls/hr Documented by: Furosemide 100 mg/ Sodium (Chloride) 100 mls @ 4 mls/hr IV TITRATE [facility]; Protocol Last Titration: 08/01/20 17:52 Dose: Infused Documented by: Piperacillin Sod/Tazobactam (Sod 4.5 gm/ Sodium Chloride) 100 mls @ 25 mls/hr IV Q8H [facility] Stop: 08/05/20 10:00 Last Admin: 08/04/20 12:55 Dose: 25 mls/hr Documented by: Vancomycin HCl 1 gm/ Sodium (Chloride) 250 mls @ 250 mls/hr IV Q18H [facility] Last Admin: 08/02/20 01:10 Dose: 250 mls/hr Documented by: Potassium Chloride 10 meq/ (Premix) 100 mls @ 100 mls/hr IV Q1H [facility] Stop: 08/01/20 13:29 Last Admin: 08/01/20 12:03 Dose: 100 mls/hr Documented by: Sodium Chloride (Normal Saline) 250 mls @ 25 mls/hr IV ASDIRECTED [facility] Vancomycin HCl 1 gm/Vancomycin HCl 250 mg/ Sodium Chloride 250 mls @ 250 mls/hr IV Q18H [facility] Last Admin: 08/02/20 21:26 Dose: 250 mls/hr Documented by: Vancomycin HCl 1 gm/Vancomycin HCl 250 mg/ Sodium Chloride 250 mls @ 166.667 mls/hr IV Q18H [facility] Stop: 08/05/20 05:00 Last Admin: 08/04/20 08:46 Dose: 166.667 mls/hr Documented by: Iopamidol (Isovue-370 (76%)) 100 ml IVPUSH ONETIME ONE Stop: 07/31/20 08:27 Last Admin: 07/31/20 09:37 Dose: 100 ml Documented by: Lidocaine HCl (Xylocaine 1%) Confirm Administered Dose 10 ml .ROUTE .STK-MED ONE Stop: 08/04/20 18:06 Last Admin: 08/04/20 19:31 Dose: 10 ml Documented by: Lidocaine HCl (Xylocaine 1%) 10 ml INJECT ONETIME ONE Stop: 08/04/20 18:06 Last Admin: 08/04/20 19:43 Dose: Not Given Documented by: Miscellaneous Information (Remove Patch) 1 ea TRDERM DAILY [facility] Last Admin: 08/03/20 09:39 Dose: Not Given Documented by: Nicotine (Habitrol) 21 mg TRDERM DAILY [facility] Last Admin: 08/03/20 09:34 Dose: Not Given Documented by: Potassium Chloride (Klor-Con M20) 40 meq PO ONETIME ONE Stop: 08/01/20 17:01 Potassium Chloride (Klor-Con M20) 40 meq PO ONETIME ONE Stop: 08/01/20 21:01 Last Admin: 08/01/20 21:54 Dose: 40 meq Documented by: Potassium Chloride (Klor-Con M20) 20 meq PO ONETIME ONE Stop: 08/01/20 21:52 Last Admin: 08/01/20 21:55 Dose: 20 meq Documented by: Potassium Chloride (Klor-Con M20) 40 meq PO ONETIME ONE Stop: 08/02/20 21:28 Last Admin: 08/02/20 22:17 Dose: 40 meq Documented by: - Exam Quality Assessment: Supplemental Oxygen General: Alert, Cooperative, No Acute Distress HEENT: Pupils Equal, Pupils Reactive, EOMI, Mucous Membr. Moist/[place] Neck: Supple Lungs: Decreased Breath Sounds, Crackles (at the left base), Other (good aeration) Cardiovascular: Regular Rhythm, Tachycardia GI/Abdominal Exam: Normal Bowel Sounds, Soft, Non-Tender, No Organomegaly, No Distention, No Abnormal Bruit, No Mass (Female) Exam: Deferred Back Exam: Normal Inspection, Decreased Range of Motion Extremities: Normal Inspection, Normal Range of Motion, Non-Tender, No Pedal Edema Peripheral Pulses: 2+: Dorsalis Pedis (L), Dorsalis Pedis (R) Skin: Warm, Dry, Intact, Ecchymosis (right flank and into her breast) Neurological: No New Focal Deficit Psy/Mental Status: Alert, Normal Affect, Normal Mood Sepsis Event Note - Evaluation Sepsis Screening Result: No Definite Risk - Focused Exam Vital Signs: Vital Signs Temp Pulse Resp BP Pulse Ox Pulse Ox 08/05/20 06:09 99 08/05/20 05:30 89/67 L 08/04/20 23:26 95 08/04/20 20:04 36.6 C 91 20 76/48 L 95 08/04/20 20:01 91 L - Problem List Review Problem List Initiated/Reviewed/Updated: Yes - My Orders Last 24 Hours: My Active Orders 08/04/20 12:24 LORazepam [Ativan] 0.25 mg IVPUSH Q4H PRN 08/04/20 12:24 Resuscitation Status Routine 08/04/20 18:19 Chest 1V Frontal [CR] Stat 08/04/20 19:00 CULTURE AFB AND SMEAR [MREF] Routine CULTURE BODY FLUID + SMEAR [RM] Routine FUNGAL SMEAR [MYC] Routine MISC TEST Routine 08/05/20 05:36 LACTATE DEHYDROGENASE,LDH [CHEM] Routine - Plan Plan:: Assessment 85-year-old female discharged today from [facility] in [place] after being treated for COVID-19 presents to the emergency department with hypoxemia. Acute: COPD Exacerbation, Improved Viral Pneumonitis/Atypical Pneumonia * Recent COVID 19 Infection * Received IV Zosyn and Vancomycin for atypical Query Protracted COVID-19 Infection Acute hypoxic and hypercapneic Respiratory Failure, improved * On high flow at 60L with 60% FiO2 Exacerbation of CHF * Worsening pleural effusions on chest x-ray * Has been on high flow * Discontinue Lasix 20 mg IV push every 6 hours * CT chest with contrast: * 1. No evidence of pulmonary emboli. * 2. Bilateral multifocal pulmonary ground glass opacities with interlobular septal thickening suggesting the "crazy paving" pattern. This pattern can be associated with acute interstitial pneumonia, adult respiratory distress syndrome, pulmonary edema, pulmonary hemorrhage, pneumonia, LVO are proteinosis, hypersensitivity pneumonitis, cryptogenic organizing pneumonia, chronic eosinophilic pneumonia, and bronchioloalveolar cell carcinoma. * Recent non-STEMI likely making heart failure worse * Albumin 1.8. This is likely also exacerbating her CHF * Procalcitonin 0.06 * Recent weight reveals a gain of 2lbs Paroxysmal Atrial fibrillation * Rate is controlled in the 70-80s * No Digoxin and Metoprolol * SCDs for Stroke prophylaxis due to GI Bleed * New onset and had significant bleed on anticoagulation Normocytic Hypochromic Anemia * Hemoccult stool was positive * Hemoglobin dropped to 7.0 and given 2 units packed red blood cells yesterday. Hemoglobin 9.7 this morning. * Review of her old records shows that she had new onset atrial fibrillation and started on heparin drip. Apparently she had significant blood loss that required transfusions and reversal of heparin. She developed a large hematoma on the right flank and surgery was consulted. No indication for I&D. Elevated D-Dimer * Chest CTA- negative for PE Mild Thrombocytopenia Elevated CRP Hypoalbuminemia Generalized Weakness Metabolic Encephalopathy End of Life Care * Family has elected to make her comfort measures * They want her tuned up; patient not ready to go Plan: * Resume PT/OT * Will try to titrate high flow and with goal to switch to nasal cannula for O2 requirement * Encourage to use IS/FV * May resume AM labs for tomorrow * CODE STATUS: DNR/DNI * VTE prophylaxis with SCDs * Discharge pending PT/OT eval Meet up with Serafin and Charlotte, they would like to try if we can tune her up. RT to titrate high flow and PT/OT for deconditioning. Asked patient in front of her son, Kaylin if she wants to continue living and she said yes. Rephrased my question, asked if she wants to see her Javier who has been and she said not too soon. At this point, we will go ahead and rescind code status to DNR/DNI.
[2020-08-05] MEDS: Tiotropium BR/Olodaterol HCL 4 GM Inhalation Spray 2.5mcg/1 dose; 10 doses INH SCH (07:31)
--- NOTE | 2020-08-05 08:49 | CR ---
PROCEDURE INFORMATION: Exam: XR Chest, 1 View Exam date and time: 08/04/2020 6:33 PM Age: 85 years old Clinical indication: Condition or disease; Lung condition and disease; Other: Post thoracentesis TECHNIQUE: Imaging protocol: XR of the chest Views: 1 view. COMPARISON: CR Chest 1V Frontal 08/03/2020 8:23 AM FINDINGS: Tubes, catheters and devices: Central venous catheter unchanged Lungs: Slight improvement in moderate diffuse interstitial prominence Seen to better advantage is a 2.4 cm pulmonary nodule left mid lung. Pleural space: Slight decrease in size of pleural effusions Heart/Mediastinum: Unremarkable. No cardiomegaly. Bones/joints: Unremarkable. IMPRESSION: 1. Decrease in pleural effusions. No pneumothorax 2. Interval improvement in interstitial edema versus infiltrates 3. 2.4 cm left midlung pulmonary nodule. 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 Thank you for allowing us to participate in the care of your patient. Dictated and Authenticated by: Nelson White MD 08/04/2020 8:06 PM Central Time ([place] & [place]) PATI
[2020-08-05] MEDS: Digoxin 125 MCG Tab PO SCH (10:05)
[2020-08-05] MEDS: Rosuvastatin 10 MG Tab PO SCH (10:05)
[2020-08-05] MEDS: rOPINIRole 1 MG Tab PO SCH ×2 (10:06→21:09)
[2020-08-05] MEDS: Metoprolol Succinate 25 MG Tab.ER PO SCH (10:12)
[2020-08-05] MEDS: Lisinopril 10 MG Tab PO SCH (10:12)
[2020-08-05] MEDS ORDERED: Acetaminophen 325 MG Tab PO PRN (17:17)
[2020-08-05] MEDS: Ascorbic Acid 500 MG Tab PO SCH (21:09)
[2020-08-06] MEDS: Tiotropium BR/Olodaterol HCL 4 GM Inhalation Spray 2.5mcg/1 dose; 10 doses INH SCH (08:50)
--- NOTE | 2020-08-06 09:15 | PCM.PN ---
- General Info Date of Service: 08/06/20 Admission Dx/Problem (Free Text): Admission Diagnosis/Problem Admission Diagnosis/Problem Hypoxia Subjective Update: No overnight or acute issues. She good but feels tired this morning. She denies having shortness of breath or chest pain. She is now down to 45% Fio2. She has been using her IS and FV as directed. - Review of Systems General: Denies: Fever, Chills HEENT: Reports: No Symptoms Pulmonary: Reports: Shortness of Breath, Cough Cardiovascular: Denies: Chest Pain Gastrointestinal: Denies: Abdominal Pain, Nausea, Vomiting Genitourinary: Denies: Incontinence Musculoskeletal: Denies: Back Pain Skin: Denies: Rash Neurological: Denies: Confusion Psychiatric: Denies: Depression, Anxiety - Patient Data Vitals - Most Recent: Last Vital Signs Temp 36.5 C 08/05/20 21:08 Pulse 83 08/05/20 21:07 Resp 16 08/05/20 21:08 BP 97/58 L 08/05/20 21:09 Pulse Ox 91 L 08/06/20 07:58 Weight - Most Recent: 62.868 kg I&O - Last 24 Hours: Intake & Output 08/05/20 08/06/20 08/06/20 22:59 06:59 14:59 Intake Total 250 400 Output Total 150 Balance 100 400 Lab Results Last 24 Hours: Laboratory Results - last 24 hr 08/05/20 08/06/20 08/06/20 Range/Units 05:36 05:41 05:48 WBC 3.33 L (3.98-10.04) K/mm3 RBC 3.47 L (3.98-5.22) M/mm3 Hgb 9.8 L (11.2-15.7) gm/dl Hct 32.4 L (34.1-44.9) % MCV 93.4 (79.4-94.8) fl MCH 28.2 (25.6-32.2) pg MCHC 30.2 L (32.2-35.5) g/dl RDW Std Deviation 48.2 H (36.4-46.3) fL Plt Count 145 L (182-369) K/mm3 MPV 10.5 (9.4-12.3) fl Neut % (Auto) 70.0 (34.0-71.1) % Lymph % (Auto) 20.1 (19.3-51.7) % Green % (Auto) 7.8 (4.7-12.5) % Eos % (Auto) 1.2 (0.7-5.8) Baso % (Auto) 0.6 (0.1-1.2) % Neut # (Auto) 2.33 (1.56-6.13) K/mm3 Lymph # (Auto) 0.67 L (1.18-3.74) K/mm3 Green # (Auto) 0.26 (0.24-0.36) K/mm3 Eos # (Auto) 0.04 (0.04-0.36) K/mm3 Baso # (Auto) 0.02 (0.01-0.08) K/mm3 Sodium 142 (136-145) mEq/L Potassium 3.1 L (3.5-5.1) mEq/L Chloride 102 (98-107) mEq/L Carbon Dioxide 38 H (21-32) mEq/L Anion Gap 5.1 (5-15) BUN 32 H (7-18) mg/dL Creatinine 0.6 (0.55-1.02) mg/dL Est Cr Clr Drug Dosing 66.80 mL/min Estimated GFR (MDRD) > 60 (>60) mL/min BUN/Creatinine Ratio 53.3 H (14-18) Glucose 93 (83-115) mg/dL Calcium 8.2 L (8.5-10.1) mg/dL Magnesium 2.2 (1.8-2.4) mg/dl Lactate Dehydrogenase 267 H (81-234) U/L Efe Results Last 24 Hours: Microbiology 08/04/20 19:00 Gram Stain - Final Pleural Fluid Body Fluid Culture - Preliminary NO GROWTH AFTER 1 DAY 07/31/20 11:23 Aerobic Blood Culture - Preliminary Blood - Venous - Lab Draw NO GROWTH AFTER 5 DAYS Anaerobic Blood Culture - Preliminary NO GROWTH AFTER 5 DAYS 07/31/20 11:15 Aerobic Blood Culture - Preliminary Blood - Venous NO GROWTH AFTER 5 DAYS Anaerobic Blood Culture - Preliminary NO GROWTH AFTER 5 DAYS Med Orders - Current: Current Medications Acetaminophen (Tylenol) 650 mg PO Q4H PRN PRN Reason: Pain (Mild 1-3)/fever Ascorbic Acid (Vitamin C) 1,000 mg PO BID EMELINA Last Admin: 08/05/20 21:09 Dose: 1,000 mg Documented by: Aspirin (Aspirin) 81 mg PO DAILY [facility] Cholecalciferol (Vitamin D3) 25 mcg PO DAILY [facility] Digoxin (Lanoxin) 125 mcg PO DAILY [facility] Last Admin: 08/05/20 10:05 Dose: 125 mcg Documented by: Lisinopril (Prinivil) 10 mg PO DAILY [facility] Last Admin: 08/05/20 10:12 Dose: Not Given Documented by: Lorazepam (Ativan) 0.25 mg IVPUSH Q4H PRN PRN Reason: comfort measures Metoprolol Succinate (Toprol Xl) 12.5 mg PO DAILY [facility] Last Admin: 08/05/20 10:12 Dose: Not Given Documented by: Nitroglycerin (Nitrostat) 0.4 mg SL ASDIRECTED PRN PRN Reason: Chest Pain Ondansetron HCl (Zofran) 4 mg IV Q4H PRN PRN Reason: Nausea/Vomiting Ropinirole HCl (Requip) 2 mg PO BID [facility] Last Admin: 08/05/20 21:09 Dose: 2 mg Documented by: Rosuvastatin Calcium (Crestor) 10 mg PO DAILY [facility] Last Admin: 08/05/20 10:05 Dose: 10 mg Documented by: Sodium Chloride (Saline Flush) 10 ml FLUSH ONETIME PRN PRN Reason: Keep Vein Open Last Admin: 07/31/20 09:37 Dose: 10 ml Documented by: Vancomycin HCl (Pharmacy To Dose - Vancomycin) 1 dose .XX ASDIRECTED PRN PRN Reason: RX TO DOSE VANCO Discontinued Medications Acetaminophen (Tylenol) 650 mg PO Q6H PRN PRN Reason: Pain Enoxaparin Sodium (Lovenox) 40 mg SUBCUT DAILY [facility] Last Admin: 07/30/20 18:05 Dose: Not Given Documented by: Enoxaparin Sodium (Lovenox) 40 mg SUBCUT DAILY@1800 [facility] Last Admin: 07/30/20 18:05 Dose: 40 mg Documented by: Furosemide (Lasix) 20 mg IVPUSH ONETIME ONE Stop: 07/30/20 00:16 Last Admin: 07/30/20 00:39 Dose: 20 mg Documented by: Furosemide (Lasix) 20 mg IVPUSH ONETIME ONE Stop: 07/30/20 11:30 Last Admin: 07/30/20 12:13 Dose: 20 mg Documented by: Furosemide (Lasix) 20 mg IVPUSH ONETIME ONE Stop: 07/30/20 19:52 Last Admin: 07/30/20 21:42 Dose: 20 mg Documented by: Furosemide (Lasix) 20 mg IVPUSH Q6H [facility] Stop: 07/31/20 17:01 Last Admin: 07/31/20 11:20 Dose: 20 mg Documented by: Furosemide (Lasix) 20 mg IVPUSH Q6H [facility] Last Admin: 08/04/20 18:47 Dose: Not Given Documented by: Hydromorphone HCl (Dilaudid) Confirm Administered Dose 0.5 mg .ROUTE .STK-MED ONE Stop: 08/04/20 18:09 Last Admin: 08/04/20 18:25 Dose: 0.5 mg Documented by: Hydromorphone HCl (Dilaudid) 0.5 mg IVPUSH ONETIME ONE Stop: 08/04/20 18:09 Last Admin: 08/04/20 19:43 Dose: Not Given Documented by: Sodium Chloride (Normal Saline) 1,000 mls @ 500 mls/hr IV ASDIRECTED [facility] Last Admin: 07/29/20 21:20 Dose: 500 mls/hr Documented by: Sodium Chloride (Normal Saline) 1,000 mls @ 75 mls/hr IV ASDIRECTED [facility] Last Admin: 07/31/20 11:26 Dose: 75 mls/hr Documented by: Albumin Human (Flexbumin 25%) 12.5 gm in 50 mls @ 100 mls/hr IV Q6H [facility] Stop: 07/31/20 17:29 Last Admin: 07/31/20 16:10 Dose: 100 mls/hr Documented by: Piperacillin Sod/Tazobactam (Sod 4.5 gm/ Sodium Chloride) 100 mls @ 25 mls/hr IV Q8H [facility] Last Admin: 08/01/20 06:03 Dose: 25 mls/hr Documented by: Piperacillin Sod/Tazobactam (Sod 4.5 gm/ Sodium Chloride) 100 mls @ 200 mls/hr IV ONETIME ONE Stop: 07/31/20 11:18 Last Admin: 07/31/20 11:14 Dose: 200 mls/hr Documented by: Vancomycin HCl 1 gm/ Sodium (Chloride) 250 mls @ 250 mls/hr IV Q24H EMELINA Last Admin: 07/31/20 13:05 Dose: 250 mls/hr Documented by: Furosemide 100 mg/ Sodium (Chloride) 100 mls @ 4 mls/hr IV TITRATE EMELINA; Protocol Last Titration: 08/01/20 17:52 Dose: Infused Documented by: Piperacillin Sod/Tazobactam (Sod 4.5 gm/ Sodium Chloride) 100 mls @ 25 mls/hr IV Q8H [facility] Stop: 08/05/20 10:00 Last Admin: 08/04/20 12:55 Dose: 25 mls/hr Documented by: Vancomycin HCl 1 gm/ Sodium (Chloride) 250 mls @ 250 mls/hr IV Q18H [facility] Last Admin: 08/02/20 01:10 Dose: 250 mls/hr Documented by: Potassium Chloride 10 meq/ (Premix) 100 mls @ 100 mls/hr IV Q1H [facility] Stop: 08/01/20 13:29 Last Admin: 08/01/20 12:03 Dose: 100 mls/hr Documented by: Sodium Chloride (Normal Saline) 250 mls @ 25 mls/hr IV ASDIRECTED [facility] Vancomycin HCl 1 gm/Vancomycin HCl 250 mg/ Sodium Chloride 250 mls @ 250 mls/hr IV Q18H [facility] Last Admin: 08/02/20 21:26 Dose: 250 mls/hr Documented by: Vancomycin HCl 1 gm/Vancomycin HCl 250 mg/ Sodium Chloride 250 mls @ 166.667 mls/hr IV Q18H [facility] Stop: 08/05/20 05:00 Last Admin: 08/04/20 08:46 Dose: 166.667 mls/hr Documented by: Iopamidol (Isovue-370 (76%)) 100 ml IVPUSH ONETIME ONE Stop: 07/31/20 08:27 Last Admin: 07/31/20 09:37 Dose: 100 ml Documented by: Lidocaine HCl (Xylocaine 1%) Confirm Administered Dose 10 ml .ROUTE .STK-MED ONE Stop: 08/04/20 18:06 Last Admin: 08/04/20 19:31 Dose: 10 ml Documented by: Lidocaine HCl (Xylocaine 1%) 10 ml INJECT ONETIME ONE Stop: 08/04/20 18:06 Last Admin: 08/04/20 19:43 Dose: Not Given Documented by: Miscellaneous Information (Remove Patch) 1 ea TRDERM DAILY [facility] Last Admin: 08/03/20 09:39 Dose: Not Given Documented by: Nicotine (Habitrol) 21 mg TRDERM DAILY [facility] Last Admin: 08/03/20 09:34 Dose: Not Given Documented by: Potassium Chloride (Klor-Con M20) 40 meq PO ONETIME ONE Stop: 08/01/20 17:01 Potassium Chloride (Klor-Con M20) 40 meq PO ONETIME ONE Stop: 08/01/20 21:01 Last Admin: 08/01/20 21:54 Dose: 40 meq Documented by: Potassium Chloride (Klor-Con M20) 20 meq PO ONETIME ONE Stop: 08/01/20 21:52 Last Admin: 08/01/20 21:55 Dose: 20 meq Documented by: Potassium Chloride (Klor-Con M20) 40 meq PO ONETIME ONE Stop: 08/02/20 21:28 Last Admin: 08/02/20 22:17 Dose: 40 meq Documented by: - Exam Quality Assessment: Supplemental Oxygen General: Alert, Cooperative, No Acute Distress HEENT: Pupils Equal, Pupils Reactive, EOMI, Mucous Membr. Moist/[place] Neck: Supple Lungs: Normal Respiratory Effort, Decreased Breath Sounds Cardiovascular: Regular Rate, Regular Rhythm GI/Abdominal Exam: Normal Bowel Sounds, Soft, Non-Tender, No Organomegaly, No Distention, No Abnormal Bruit (Female) Exam: Deferred Back Exam: Normal Inspection, Decreased Range of Motion Extremities: Normal Inspection, Normal Range of Motion, Non-Tender, No Pedal Edema, Normal Capillary Refill Peripheral Pulses: 2+: Dorsalis Pedis (L), Dorsalis Pedis (R) Skin: Warm, Dry, Intact Neurological: No New Focal Deficit Psy/Mental Status: Alert, Normal Affect, Normal Mood Sepsis Event Note - Evaluation Sepsis Screening Result: No Definite Risk - Focused Exam Vital Signs: Vital Signs Temp Pulse Resp BP Pulse Ox Pulse Ox 08/06/20 07:58 91 L 08/05/20 21:16 98 08/05/20 21:09 97/58 L 08/05/20 21:08 36.5 C 16 08/05/20 21:07 83 97 - Problem List Review Problem List Initiated/Reviewed/Updated: Yes - My Orders Last 24 Hours: My Active Orders 08/05/20 11:32 DC Fernandes Catheter [Urinary Catheter Removal] [RC] PER UNIT ROUTINE 08/05/20 15:48 Resuscitation Status Routine 08/05/20 17:54 Activity as Tolerated [RC] .Routine 08/05/20 20:30 Bladder Scan [RC] ASDIRECTED 08/05/20 21:00 Ascorbic Acid [Vitamin C] 1,000 mg PO BID 08/06/20 00:56 Bladder Scan [RC] ASDIRECTED 08/06/20 09:00 Aspirin 81 mg PO DAILY Cholecalciferol (Vitamin D3) [Vitamin D3] 25 mcg PO DAILY - Plan Plan:: Assessment 85-year-old female discharged today from [facility] in [place] after being treated for COVID-19 presents to the emergency department with hypoxemia. Acute: COPD Exacerbation Interstitial Edema/Infiltrates * Recent COVID 19 Infection * Received IV Zosyn and Vancomycin for atypical * Repeat chest x-ray does not show obvious infiltrates or consolidation * Now off antibiotics Query Protracted COVID-19 Infection Acute hypoxic and hypercapneic Respiratory Failure, improved * On high flow at 60L with 45% FiO2 Exacerbation of CHF * Worsening pleural effusions on chest x-ray; s/p thoracentesis * Repeat CXR shows much improved lungs * Has been on high flow * Resume lasix daily * CT chest with contrast: * 1. No evidence of pulmonary emboli. * 2. Bilateral multifocal pulmonary ground glass opacities with interlobular septal thickening suggesting the "crazy paving" pattern. This pattern can be associated with acute interstitial pneumonia, adult respiratory distress syndrome, pulmonary edema, pulmonary hemorrhage, pneumonia, LVO are proteinosis, hypersensitivity pneumonitis, cryptogenic organizing pneumonia, chronic eosinophilic pneumonia, and bronchioloalveolar cell carcinoma. * Recent non-STEMI likely making heart failure worse * Albumin 1.8. This is likely also exacerbating her CHF * Procalcitonin 0.06 * Recent weight reveals a gain of 2lbs Paroxysmal Atrial fibrillation * Rate is controlled in the 70-80s * No Digoxin and Metoprolol * SCDs for Stroke prophylaxis due to GI Bleed * New onset and had significant bleed on anticoagulation Normocytic Hypochromic Anemia * Hemoccult stool was positive * Hemoglobin dropped to 7.0 and given 2 units packed red blood cells yesterday. Hemoglobin 9.7 this morning. * Review of her old records shows that she had new onset atrial fibrillation and started on heparin ip. Apparently she had significant blood loss that required transfusions and reversal of heparin. She developed a large hematoma on the right flank and surgery was consulted. No indication for I&D. Elevated D-Dimer * Chest CTA- negative for PE Mild Thrombocytopenia Elevated CRP Hypoalbuminemia Generalized Weakness Metabolic Encephalopathy End of Life Care * Family has elected to make her comfort measures * They want her tuned up; patient not ready to go * Converted back DNR/DNI Relative Hypotension * She is not tachycardiac * Parameters on BP meds * PRN Midodrine TID for BP < 100/60 mmHg Plan: * Resume PT/OT * Will try to titrate high flow and with goal to switch to nasal cannula for O2 requirement; now down to 45% FiO2 * Encourage to use IS/FV * CODE STATUS: DNR/DNI * VTE prophylaxis with SCDs * Discharge plan: LTAC if not able to wean off high flow vs inpatient rehab
[2020-08-06] MEDS ORDERED: Sodium Chloride 0.9% 500 ML IV ONE (09:51)
[2020-08-06] MEDS: rOPINIRole 1 MG Tab PO SCH ×2 (10:15→21:03)
[2020-08-06] MEDS: Ascorbic Acid 500 MG Tab PO SCH ×2 (10:15→21:03)
[2020-08-06] MEDS: Cholecalciferol (Vitamin D3) 25 MCG Tab PO SCH (10:15)
[2020-08-06] MEDS: Digoxin 125 MCG Tab PO SCH (10:16)
[2020-08-06] MEDS: Rosuvastatin 10 MG Tab PO SCH (10:16)
[2020-08-06] MEDS: Aspirin 81 MG Tab.Chew PO SCH (10:16)
[2020-08-06] MEDS: Midodrine 5 MG Tab PO PRN (10:16)
[2020-08-06] MEDS: Lisinopril 10 MG Tab PO SCH (10:38)
[2020-08-06] MEDS: Metoprolol Succinate 25 MG Tab.ER PO SCH (10:39)
[2020-08-07] MEDS: Metoprolol Succinate 25 MG Tab.ER PO SCH (08:55)
[2020-08-07] MEDS: rOPINIRole 1 MG Tab PO SCH ×2 (08:55→20:37)
[2020-08-07] MEDS: Lisinopril 10 MG Tab PO SCH (08:59)
[2020-08-07] MEDS: Digoxin 125 MCG Tab PO SCH (08:59)
[2020-08-07] MEDS: Aspirin 81 MG Tab.Chew PO SCH (08:59)
[2020-08-07] MEDS: Ascorbic Acid 500 MG Tab PO SCH ×2 (08:59→20:38)
[2020-08-07] MEDS: Rosuvastatin 10 MG Tab PO SCH (09:00)
[2020-08-07] MEDS: Cholecalciferol (Vitamin D3) 25 MCG Tab PO SCH (09:00)
[2020-08-07] MEDS: Tiotropium BR/Olodaterol HCL 4 GM Inhalation Spray 2.5mcg/1 dose; 10 doses INH SCH (09:08)
[2020-08-07] MEDS: Midodrine 5 MG Tab PO PRN (15:36)
[2020-08-07] MEDS ORDERED: Potassium Chloride 20 MEQ Tab.ER PO ONE (19:33)
--- NOTE | 2020-08-07 19:33 | PCM.PN ---
- General Info Date of Service: 08/07/20 Admission Dx/Problem (Free Text): Admission Diagnosis/Problem Admission Diagnosis/Problem Hypoxia Subjective Update: Patient states she is feeling better. She is on nasal cannula O2, but continues to be fatigued. Functional Status: Reports: Pain Controlled - Review of Systems General: Reports: Fatigue HEENT: Reports: No Symptoms Pulmonary: Reports: Shortness of Breath Cardiovascular: Reports: No Symptoms Gastrointestinal: Reports: No Symptoms Musculoskeletal: Reports: No Symptoms Neurological: Reports: No Symptoms Psychiatric: Reports: No Symptoms - Patient Data Vitals - Most Recent: Last Vital Signs Temp 97.9 F 08/07/20 15:29 Pulse 72 08/07/20 15:40 Resp 26 H 08/07/20 15:29 BP 97/68 08/07/20 16:33 Pulse Ox 96 08/07/20 17:28 Weight - Most Recent: 129 lb 6.4 oz I&O - Last 24 Hours: Intake & Output 08/07/20 08/07/20 08/07/20 06:59 14:59 22:59 Intake Total 400 0 520 Output Total 350 Balance 50 0 520 Efe Results Last 24 Hours: Microbiology 07/31/20 11:23 Aerobic Blood Culture - Final Blood - Venous - Lab Draw NO GROWTH AFTER 7 DAYS Anaerobic Blood Culture - Final NO GROWTH AFTER 7 DAYS 07/31/20 11:15 Aerobic Blood Culture - Final Blood - Venous NO GROWTH AFTER 7 DAYS Anaerobic Blood Culture - Final NO GROWTH AFTER 7 DAYS 08/04/20 19:00 Gram Stain - Final Pleural Fluid Body Fluid Culture - Preliminary NO GROWTH AFTER 3 DAYS Med Orders - Current: Current Medications Acetaminophen (Tylenol) 650 mg PO Q4H PRN PRN Reason: Pain (Mild 1-3)/fever Ascorbic Acid (Vitamin C) 1,000 mg PO BID [facility] Last Admin: 08/07/20 08:59 Dose: 1,000 mg Documented by: Aspirin (Aspirin) 81 mg PO DAILY [facility] Last Admin: 08/07/20 08:59 Dose: 81 mg Documented by: Cholecalciferol (Vitamin D3) 25 mcg PO DAILY [facility] Last Admin: 08/07/20 09:00 Dose: 25 mcg Documented by: Digoxin (Lanoxin) 125 mcg PO DAILY [facility] Last Admin: 08/07/20 08:59 Dose: 125 mcg Documented by: Lisinopril (Prinivil) 10 mg PO DAILY [facility] Last Admin: 08/07/20 08:59 Dose: 10 mg Documented by: Lorazepam (Ativan) 0.25 mg IVPUSH Q4H PRN PRN Reason: comfort measures Metoprolol Succinate (Toprol Xl) 12.5 mg PO DAILY [facility] Last Admin: 08/07/20 08:55 Dose: 12.5 mg Documented by: Midodrine (Midodrine) 5 mg PO TID PRN PRN Reason: Hypotension Last Admin: 08/07/20 15:36 Dose: 5 mg Documented by: Nitroglycerin (Nitrostat) 0.4 mg SL ASDIRECTED PRN PRN Reason: Chest Pain Ondansetron HCl (Zofran) 4 mg IV Q4H PRN PRN Reason: Nausea/Vomiting Ropinirole HCl (Requip) 2 mg PO BID [facility] Last Admin: 08/07/20 08:55 Dose: 2 mg Documented by: Rosuvastatin Calcium (Crestor) 10 mg PO DAILY [facility] Last Admin: 08/07/20 09:00 Dose: 10 mg Documented by: Sodium Chloride (Saline Flush) 10 ml FLUSH ONETIME PRN PRN Reason: Keep Vein Open Last Admin: 07/31/20 09:37 Dose: 10 ml Documented by: Vancomycin HCl (Pharmacy To Dose - Vancomycin) 1 dose .XX ASDIRECTED PRN PRN Reason: RX TO DOSE VANCO Discontinued Medications Acetaminophen (Tylenol) 650 mg PO Q6H PRN PRN Reason: Pain Enoxaparin Sodium (Lovenox) 40 mg SUBCUT DAILY [facility] Last Admin: 07/30/20 18:05 Dose: Not Given Documented by: Enoxaparin Sodium (Lovenox) 40 mg SUBCUT DAILY@1800 [facility] Last Admin: 07/30/20 18:05 Dose: 40 mg Documented by: Furosemide (Lasix) 20 mg IVPUSH ONETIME ONE Stop: 07/30/20 00:16 Last Admin: 07/30/20 00:39 Dose: 20 mg Documented by: Furosemide (Lasix) 20 mg IVPUSH ONETIME ONE Stop: 07/30/20 11:30 Last Admin: 07/30/20 12:13 Dose: 20 mg Documented by: Furosemide (Lasix) 20 mg IVPUSH ONETIME ONE Stop: 07/30/20 19:52 Last Admin: 07/30/20 21:42 Dose: 20 mg Documented by: Furosemide (Lasix) 20 mg IVPUSH Q6H [facility] Stop: 07/31/20 17:01 Last Admin: 07/31/20 11:20 Dose: 20 mg Documented by: Furosemide (Lasix) 20 mg IVPUSH Q6H [facility] Last Admin: 08/04/20 18:47 Dose: Not Given Documented by: Hydromorphone HCl (Dilaudid) Confirm Administered Dose 0.5 mg .ROUTE .STK-MED ONE Stop: 08/04/20 18:09 Last Admin: 08/04/20 18:25 Dose: 0.5 mg Documented by: Hydromorphone HCl (Dilaudid) 0.5 mg IVPUSH ONETIME ONE Stop: 08/04/20 18:09 Last Admin: 08/04/20 19:43 Dose: Not Given Documented by: Sodium Chloride (Normal Saline) 1,000 mls @ 500 mls/hr IV ASDIRECTED [facility] Last Admin: 07/29/20 21:20 Dose: 500 mls/hr Documented by: Sodium Chloride (Normal Saline) 1,000 mls @ 75 mls/hr IV ASDIRECTED [facility] Last Admin: 07/31/20 11:26 Dose: 75 mls/hr Documented by: Albumin Human (Flexbumin 25%) 12.5 gm in 50 mls @ 100 mls/hr IV Q6H [facility] Stop: 07/31/20 17:29 Last Admin: 07/31/20 16:10 Dose: 100 mls/hr Documented by: Piperacillin Sod/Tazobactam (Sod 4.5 gm/ Sodium Chloride) 100 mls @ 25 mls/hr IV Q8H [facility] Last Admin: 08/01/20 06:03 Dose: 25 mls/hr Documented by: Piperacillin Sod/Tazobactam (Sod 4.5 gm/ Sodium Chloride) 100 mls @ 200 mls/hr IV ONETIME ONE Stop: 07/31/20 11:18 Last Admin: 07/31/20 11:14 Dose: 200 mls/hr Documented by: Vancomycin HCl 1 gm/ Sodium (Chloride) 250 mls @ 250 mls/hr IV Q24H [facility] Last Admin: 07/31/20 13:05 Dose: 250 mls/hr Documented by: Furosemide 100 mg/ Sodium (Chloride) 100 mls @ 4 mls/hr IV TITRATE EMELINA; Protocol Last Titration: 08/01/20 17:52 Dose: Infused Documented by: Piperacillin Sod/Tazobactam (Sod 4.5 gm/ Sodium Chloride) 100 mls @ 25 mls/hr IV Q8H [facility] Stop: 08/05/20 10:00 Last Admin: 08/04/20 12:55 Dose: 25 mls/hr Documented by: Vancomycin HCl 1 gm/ Sodium (Chloride) 250 mls @ 250 mls/hr IV Q18H [facility] Last Admin: 08/02/20 01:10 Dose: 250 mls/hr Documented by: Potassium Chloride 10 meq/ (Premix) 100 mls @ 100 mls/hr IV Q1H [facility] Stop: 08/01/20 13:29 Last Admin: 08/01/20 12:03 Dose: 100 mls/hr Documented by: Sodium Chloride (Normal Saline) 250 mls @ 25 mls/hr IV ASDIRECTED [facility] Vancomycin HCl 1 gm/Vancomycin HCl 250 mg/ Sodium Chloride 250 mls @ 250 mls/hr IV Q18H [facility] Last Admin: 08/02/20 21:26 Dose: 250 mls/hr Documented by: Vancomycin HCl 1 gm/Vancomycin HCl 250 mg/ Sodium Chloride 250 mls @ 166.667 mls/hr IV Q18H [facility] Stop: 08/05/20 05:00 Last Admin: 08/04/20 08:46 Dose: 166.667 mls/hr Documented by: Sodium Chloride (Normal Saline) 500 mls @ 250 mls/hr IV .BOLUS ONE Stop: 08/06/20 11:50 Last Admin: 08/06/20 10:24 Dose: 250 mls/hr Documented by: Iopamidol (Isovue-370 (76%)) 100 ml IVPUSH ONETIME ONE Stop: 07/31/20 08:27 Last Admin: 07/31/20 09:37 Dose: 100 ml Documented by: Lidocaine HCl (Xylocaine 1%) Confirm Administered Dose 10 ml .ROUTE .STK-MED ONE Stop: 08/04/20 18:06 Last Admin: 08/04/20 19:31 Dose: 10 ml Documented by: Lidocaine HCl (Xylocaine 1%) 10 ml INJECT ONETIME ONE Stop: 08/04/20 18:06 Last Admin: 08/04/20 19:43 Dose: Not Given Documented by: Miscellaneous Information (Remove Patch) 1 ea TRDERM DAILY [facility] Last Admin: 08/03/20 09:39 Dose: Not Given Documented by: Nicotine (Habitrol) 21 mg TRDERM DAILY [facility] Last Admin: 08/03/20 09:34 Dose: Not Given Documented by: Potassium Chloride (Klor-Con M20) 40 meq PO ONETIME ONE Stop: 08/01/20 17:01 Potassium Chloride (Klor-Con M20) 40 meq PO ONETIME ONE Stop: 08/01/20 21:01 Last Admin: 08/01/20 21:54 Dose: 40 meq Documented by: Potassium Chloride (Klor-Con M20) 20 meq PO ONETIME ONE Stop: 08/01/20 21:52 Last Admin: 08/01/20 21:55 Dose: 20 meq Documented by: Potassium Chloride (Klor-Con M20) 40 meq PO ONETIME ONE Stop: 08/02/20 21:28 Last Admin: 08/02/20 22:17 Dose: 40 meq Documented by: - Exam Quality Assessment: Supplemental Oxygen General: Alert, Oriented HEENT: Pupils Equal, Mucous Membr. Moist/[place] Neck: Supple Lungs: Normal Respiratory Effort, Rales Cardiovascular: Regular Rate, Regular Rhythm GI/Abdominal Exam: Normal Bowel Sounds, Soft, Non-Tender, No Distention Extremities: Normal Inspection, Normal Range of Motion, Non-Tender, No Pedal Edema, Normal Capillary Refill Skin: Warm, Dry, Intact Psy/Mental Status: Alert, Normal Affect, Normal Mood Sepsis Event Note - Evaluation Sepsis Screening Result: No Definite Risk - Focused Exam Vital Signs: Vital Signs Temp Pulse Resp BP Pulse Ox Pulse Ox Pulse Ox 08/07/20 17:28 96 08/07/20 16:33 97/68 08/07/20 16:32 87/56 L 08/07/20 15:40 72 08/07/20 15:29 97.9 F 71 26 H 77/34 L 90 L 08/07/20 11:41 98.6 F 74 22 H 100/43 L 97 08/07/20 09:08 100 08/07/20 08:59 62 112/55 L 08/07/20 08:55 62 112/55 L 08/07/20 08:48 95 11/22/20 08:34 93 L 08/07/20 07:55 97.7 F 62 26 H 112/55 L 95 - Problem List & Annotations (1) Congestive heart failure SNOMED Code(s): 25601514 Code(s): I50.9 - HEART FAILURE, UNSPECIFIED Status: Acute Current Visit: Yes Qualifiers: Heart failure type: unspecified Heart failure chronicity: acute on chronic Qualified Code(s): I50.9 - Heart failure, unspecified (2) Hypoxemia SNOMED Code(s): 818573645 Code(s): R09.02 - HYPOXEMIA Status: Acute Current Visit: Yes (3) Pleural effusion SNOMED Code(s): 99159224 Code(s): J90 - PLEURAL EFFUSION, NOT ELSEWHERE CLASSIFIED Status: Acute Current Visit: Yes (4) COVID-19 virus detected SNOMED Code(s): 8858512019099029 Code(s): U07.1 - COVID-19 Status: Acute Current Visit: Yes (5) Anemia SNOMED Code(s): 150801743 Code(s): D64.9 - ANEMIA, UNSPECIFIED Status: Acute Current Visit: Yes (6) Prolonged Q-T interval on ECG SNOMED Code(s): 772092646 Code(s): R94.31 - ABNORMAL ELECTROCARDIOGRAM [ECG] [EKG] Status: Acute Current Visit: Yes - Problem List Review Problem List Initiated/Reviewed/Updated: Yes - Plan Plan:: Assessment 85-year-old female discharged today from [facility] after being treated for COVID-19 presents to the emergency department with hypoxemia. Acute: COPD Exacerbation Interstitial Edema/Infiltrates * Recent COVID 19 Infection * Received IV Zosyn and Vancomycin for atypical * Repeat chest x-ray does not show obvious infiltrates or consolidation * Now off antibiotics Acute hypoxic and hypercapneic Respiratory Failure, improved * Currently on nasal cannula 5 L/min Exacerbation of CHFimproved * Worsening pleural effusions on chest x-ray; s/p thoracentesis * Repeat CXR shows much improved lungs * Has been on high flow * Holding lasix daily 2/2 hypotension * CT chest with contrast: * 1. No evidence of pulmonary emboli. * 2. Bilateral multifocal pulmonary ground glass opacities with interlobular septal thickening suggesting the "crazy paving" pattern. This pattern can be associated with acute interstitial pneumonia, adult respiratory distress syndrome, pulmonary edema, pulmonary hemorrhage, pneumonia, LVO are proteinosis, hypersensitivity pneumonitis, cryptogenic organizing pneumonia, chronic eosinophilic pneumonia, and bronchioloalveolar cell carcinoma. * Recent non-STEMI likely making heart failure worse * Albumin 1.8. This is likely also exacerbating her CHF * Procalcitonin 0.06 * Recent weight reveals a gain of 2lbs Paroxysmal Atrial fibrillation * Rate is controlled in the 70-80s * On digoxin and Metoprolol * SCDs for Stroke prophylaxis due to GI Bleed * New onset and had significant bleed on anticoagulation Normocytic Hypochromic Anemia * Hemoccult stool was positive * Hemoglobin dropped to 7.0 and given 2 units packed red blood cells yesterday. Hemoglobin 9.7 this morning. * Review of her old records shows that she had new onset atrial fibrillation and started on heparin drip. Apparently she had significant blood loss that required transfusions and reversal of heparin. She developed a large hematoma on the right flank and surgery was consulted. No indication for I&D. Elevated D-Dimer * Chest CTA- negative for PE Hypokalemiapotassium 3.1 yesterday Mild Thrombocytopenia-platelets 145 Elevated CRP Hypoalbuminemia Generalized Weakness Metabolic Encephalopathy End of Life Care * Family has elected to make her comfort measures * They want her tuned up; patient not ready to go * Converted back DNR/DNI Relative Hypotension * Likely secondary to hypertensive medication * Parameters on BP meds * PRN Midodrine TID for BP < 100/60 mmHg Plan: * Hold lisinopril, received it today, secondary to hypotension. May also need to hold metoprolol if continues to have hypotension requiring midodrine. * Replace potassium and recheck in the morning * Resume PT/OT * Continue to wean FiO2 * Encourage to use IS/FV * CODE STATUS: DNR/DNI * VTE prophylaxis with SCDs * Discharge planning in the morning.
[2020-08-08] MEDS: Aspirin 81 MG Tab.Chew PO SCH (08:35)
[2020-08-08] MEDS: rOPINIRole 1 MG Tab PO SCH ×2 (08:35→20:48)
[2020-08-08] MEDS: Cholecalciferol (Vitamin D3) 25 MCG Tab PO SCH (08:35)
[2020-08-08] MEDS: Digoxin 125 MCG Tab PO SCH (08:36)
[2020-08-08] MEDS: Ascorbic Acid 500 MG Tab PO SCH ×2 (08:38→20:48)
[2020-08-08] MEDS: Rosuvastatin 10 MG Tab PO SCH (08:38)
[2020-08-08] MEDS: Metoprolol Succinate 25 MG Tab.ER PO SCH (08:38)
[2020-08-08] MEDS: Tiotropium BR/Olodaterol HCL 4 GM Inhalation Spray 2.5mcg/1 dose; 10 doses INH SCH (09:55)
--- NOTE | 2020-08-08 12:54 | CR ---
PROCEDURE INFORMATION: Exam: XR Chest, 2 Views Exam date and time: 08/08/2020 12:25 PM Age: 85 years old Clinical indication: Cough and other: Hypoxia TECHNIQUE: Imaging protocol: XR of the chest Views: 2 views. COMPARISON: CR Chest 1V Frontal 08/04/2020 6:33 PM FINDINGS: Tubes, catheters and devices: Right internal jugular line has been removed. Lungs: There are stable increased interstitial markings and superimposed airspace opacities. On lateral view, there is triangular opacity which appears likely in the right lobe likely atelectasis. Lungs are hyperexpanded. There is unchanged nodular density below midlung level on left which is likely in region of lingula. Pleural space: There is stable moderate left pleural effusion. No pneumothorax. There is right apical pleural thickening. Heart/Mediastinum: Stable cardiac silhouette which is borderline enlarged. Vasculature: Aorta is unfolded and calcified. Bones/joints: There is mild scoliosis. There is spondylosis. There are is partially visualized lumbar spinal fixation hardware. IMPRESSION: Stable interstitial prominence, pulmonary infiltrates and atelectasis, and left pleural effusion. Thank you for allowing us to participate in the care of your patient. Dictated and Authenticated by: Hilda Ornelas MD 08/08/2020 1:42 PM Central Time ([place] & [place]) PATI
--- NOTE | 2020-08-08 15:27 | PCM.PN ---
- General Info Date of Service: 08/08/20 Admission Dx/Problem (Free Text): Admission Diagnosis/Problem Admission Diagnosis/Problem Hypoxia Subjective Update: Patient states she is feeling better. She is on nasal cannula O2, but continues to be fatigued. She has a non productive cough. Xray shows left pleural effusion. Denies shortness of breath. Functional Status: Reports: Pain Controlled - Review of Systems General: Reports: No Symptoms HEENT: Reports: No Symptoms Pulmonary: Reports: Cough Cardiovascular: Reports: No Symptoms Gastrointestinal: Reports: No Symptoms Genitourinary: Reports: No Symptoms Musculoskeletal: Reports: No Symptoms Skin: Reports: No Symptoms Neurological: Reports: No Symptoms Psychiatric: Reports: No Symptoms - Patient Data Vitals - Most Recent: Last Vital Signs Temp 97.9 F 08/08/20 08:38 Pulse 79 08/08/20 08:38 Resp 16 08/08/20 08:38 BP 104/62 08/08/20 08:38 Pulse Ox 97 08/08/20 14:45 Weight - Most Recent: 128 lb 12.8 oz I&O - Last 24 Hours: Intake & Output 08/08/20 08/08/20 08/08/20 06:59 14:59 22:59 Intake Total 400 180 Output Total 200 Balance 200 180 Lab Results Last 24 Hours: Laboratory Results - last 24 hr 08/08/20 Range/Units 05:04 Sodium 143 (136-145) mEq/L Potassium 3.6 (3.5-5.1) mEq/L Chloride 106 (98-107) mEq/L Carbon Dioxide 35 H (21-32) mEq/L Anion Gap 5.6 (5-15) BUN 34 H (7-18) mg/dL Creatinine 0.7 (0.55-1.02) mg/dL Est Cr Clr Drug Dosing 53.21 mL/min Estimated GFR (MDRD) > 60 (>60) mL/min BUN/Creatinine Ratio 48.6 H (14-18) Glucose 90 (83-115) mg/dL Calcium 8.5 (8.5-10.1) mg/dL Magnesium 2.3 (1.8-2.4) mg/dl Total Bilirubin 0.8 (0.2-1.0) mg/dL AST 22 (15-37) U/L ALT 20 (14-59) U/L Alkaline Phosphatase 69 (46-116) U/L Total Protein 5.5 L (6.4-8.2) g/dl Albumin 1.9 L (3.4-5.0) g/dl Globulin 3.6 gm/dL Albumin/Globulin Ratio 0.5 L (1-2) Efe Results Last 24 Hours: Microbiology 07/31/20 11:23 Aerobic Blood Culture - Final Blood - Venous - Lab Draw NO GROWTH AFTER 7 DAYS Anaerobic Blood Culture - Final NO GROWTH AFTER 7 DAYS 07/31/20 11:15 Aerobic Blood Culture - Final Blood - Venous NO GROWTH AFTER 7 DAYS Anaerobic Blood Culture - Final NO GROWTH AFTER 7 DAYS 08/04/20 19:00 Gram Stain - Final Pleural Fluid Body Fluid Culture - Preliminary NO GROWTH AFTER 3 DAYS Med Orders - Current: Current Medications Acetaminophen (Tylenol) 650 mg PO Q4H PRN PRN Reason: Pain (Mild 1-3)/fever Ascorbic Acid (Vitamin C) 1,000 mg PO BID [facility] Last Admin: 08/08/20 08:38 Dose: 1,000 mg Documented by: Aspirin (Aspirin) 81 mg PO DAILY [facility] Last Admin: 08/08/20 08:35 Dose: 81 mg Documented by: Cholecalciferol (Vitamin D3) 25 mcg PO DAILY [facility] Last Admin: 08/08/20 08:35 Dose: 25 mcg Documented by: Digoxin (Lanoxin) 125 mcg PO DAILY [facility] Last Admin: 08/08/20 08:36 Dose: 125 mcg Documented by: Lorazepam (Ativan) 0.25 mg IVPUSH Q4H PRN PRN Reason: comfort measures Metoprolol Succinate (Toprol Xl) 12.5 mg PO DAILY [facility] Last Admin: 08/08/20 08:38 Dose: 12.5 mg Documented by: Midodrine (Midodrine) 5 mg PO TID PRN PRN Reason: Hypotension Last Admin: 08/07/20 15:36 Dose: 5 mg Documented by: Nitroglycerin (Nitrostat) 0.4 mg SL ASDIRECTED PRN PRN Reason: Chest Pain Ondansetron HCl (Zofran) 4 mg IV Q4H PRN PRN Reason: Nausea/Vomiting Ropinirole HCl (Requip) 2 mg PO BID [facility] Last Admin: 08/08/20 08:35 Dose: 2 mg Documented by: Rosuvastatin Calcium (Crestor) 10 mg PO DAILY [facility] Last Admin: 08/08/20 08:38 Dose: 10 mg Documented by: Sodium Chloride (Saline Flush) 10 ml FLUSH ONETIME PRN PRN Reason: Keep Vein Open Last Admin: 07/31/20 09:37 Dose: 10 ml Documented by: Discontinued Medications Acetaminophen (Tylenol) 650 mg PO Q6H PRN PRN Reason: Pain Enoxaparin Sodium (Lovenox) 40 mg SUBCUT DAILY [facility] Last Admin: 07/30/20 18:05 Dose: Not Given Documented by: Enoxaparin Sodium (Lovenox) 40 mg SUBCUT DAILY@1800 [facility] Last Admin: 07/30/20 18:05 Dose: 40 mg Documented by: Furosemide (Lasix) 20 mg IVPUSH ONETIME ONE Stop: 07/30/20 00:16 Last Admin: 07/30/20 00:39 Dose: 20 mg Documented by: Furosemide (Lasix) 20 mg IVPUSH ONETIME ONE Stop: 07/30/20 11:30 Last Admin: 07/30/20 12:13 Dose: 20 mg Documented by: Furosemide (Lasix) 20 mg IVPUSH ONETIME ONE Stop: 07/30/20 19:52 Last Admin: 07/30/20 21:42 Dose: 20 mg Documented by: Furosemide (Lasix) 20 mg IVPUSH Q6H [facility] Stop: 07/31/20 17:01 Last Admin: 07/31/20 11:20 Dose: 20 mg Documented by: Furosemide (Lasix) 20 mg IVPUSH Q6H [facility] Last Admin: 08/04/20 18:47 Dose: Not Given Documented by: Hydromorphone HCl (Dilaudid) Confirm Administered Dose 0.5 mg .ROUTE .STK-MED ONE Stop: 08/04/20 18:09 Last Admin: 08/04/20 18:25 Dose: 0.5 mg Documented by: Hydromorphone HCl (Dilaudid) 0.5 mg IVPUSH ONETIME ONE Stop: 08/04/20 18:09 Last Admin: 08/04/20 19:43 Dose: Not Given Documented by: Sodium Chloride (Normal Saline) 1,000 mls @ 500 mls/hr IV ASDIRECTED [facility] Last Admin: 07/29/20 21:20 Dose: 500 mls/hr Documented by: Sodium Chloride (Normal Saline) 1,000 mls @ 75 mls/hr IV ASDIRECTED [facility] Last Admin: 07/31/20 11:26 Dose: 75 mls/hr Documented by: Albumin Human (Flexbumin 25%) 12.5 gm in 50 mls @ 100 mls/hr IV Q6H [facility] Stop: 07/31/20 17:29 Last Admin: 07/31/20 16:10 Dose: 100 mls/hr Documented by: Piperacillin Sod/Tazobactam (Sod 4.5 gm/ Sodium Chloride) 100 mls @ 25 mls/hr IV Q8H [facility] Last Admin: 08/01/20 06:03 Dose: 25 mls/hr Documented by: Piperacillin Sod/Tazobactam (Sod 4.5 gm/ Sodium Chloride) 100 mls @ 200 mls/hr IV ONETIME ONE Stop: 07/31/20 11:18 Last Admin: 07/31/20 11:14 Dose: 200 mls/hr Documented by: Vancomycin HCl 1 gm/ Sodium (Chloride) 250 mls @ 250 mls/hr IV Q24H [facility] Last Admin: 07/31/20 13:05 Dose: 250 mls/hr Documented by: Furosemide 100 mg/ Sodium (Chloride) 100 mls @ 4 mls/hr IV TITRATE [facility]; Protocol Last Titration: 08/01/20 17:52 Dose: Infused Documented by: Piperacillin Sod/Tazobactam (Sod 4.5 gm/ Sodium Chloride) 100 mls @ 25 mls/hr IV Q8H [facility] Stop: 08/05/20 10:00 Last Admin: 08/04/20 12:55 Dose: 25 mls/hr Documented by: Vancomycin HCl 1 gm/ Sodium (Chloride) 250 mls @ 250 mls/hr IV Q18H [facility] Last Admin: 08/02/20 01:10 Dose: 250 mls/hr Documented by: Potassium Chloride 10 meq/ (Premix) 100 mls @ 100 mls/hr IV Q1H [facility] Stop: 08/01/20 13:29 Last Admin: 08/01/20 12:03 Dose: 100 mls/hr Documented by: Sodium Chloride (Normal Saline) 250 mls @ 25 mls/hr IV ASDIRECTED [facility] Vancomycin HCl 1 gm/Vancomycin HCl 250 mg/ Sodium Chloride 250 mls @ 250 mls/hr IV Q18H [facility] Last Admin: 08/02/20 21:26 Dose: 250 mls/hr Documented by: Vancomycin HCl 1 gm/Vancomycin HCl 250 mg/ Sodium Chloride 250 mls @ 166.667 mls/hr IV Q18H [facility] Stop: 08/05/20 05:00 Last Admin: 08/04/20 08:46 Dose: 166.667 mls/hr Documented by: Sodium Chloride (Normal Saline) 500 mls @ 250 mls/hr IV .BOLUS ONE Stop: 08/06/20 11:50 Last Admin: 08/06/20 10:24 Dose: 250 mls/hr Documented by: Iopamidol (Isovue-370 (76%)) 100 ml IVPUSH ONETIME ONE Stop: 07/31/20 08:27 Last Admin: 07/31/20 09:37 Dose: 100 ml Documented by: Lidocaine HCl (Xylocaine 1%) Confirm Administered Dose 10 ml .ROUTE .STK-MED ONE Stop: 08/04/20 18:06 Last Admin: 08/04/20 19:31 Dose: 10 ml Documented by: Lidocaine HCl (Xylocaine 1%) 10 ml INJECT ONETIME ONE Stop: 08/04/20 18:06 Last Admin: 08/04/20 19:43 Dose: Not Given Documented by: Lisinopril (Prinivil) 10 mg PO DAILY [facility] Last Admin: 08/07/20 08:59 Dose: 10 mg Documented by: Miscellaneous Information (Remove Patch) 1 ea TRDERM DAILY [facility] Last Admin: 08/03/20 09:39 Dose: Not Given Documented by: Nicotine (Habitrol) 21 mg TRDERM DAILY [facility] Last Admin: 08/03/20 09:34 Dose: Not Given Documented by: Potassium Chloride (Klor-Con M20) 40 meq PO ONETIME ONE Stop: 08/01/20 17:01 Potassium Chloride (Klor-Con M20) 40 meq PO ONETIME ONE Stop: 08/01/20 21:01 Last Admin: 08/01/20 21:54 Dose: 40 meq Documented by: Potassium Chloride (Klor-Con M20) 20 meq PO ONETIME ONE Stop: 08/01/20 21:52 Last Admin: 08/01/20 21:55 Dose: 20 meq Documented by: Potassium Chloride (Klor-Con M20) 40 meq PO ONETIME ONE Stop: 08/02/20 21:28 Last Admin: 08/02/20 22:17 Dose: 40 meq Documented by: Potassium Chloride (Klor-Con M20) 40 meq PO ONETIME ONE Stop: 08/07/20 19:34 Last Admin: 08/07/20 20:38 Dose: 40 meq Documented by: Vancomycin HCl (Pharmacy To Dose - Vancomycin) 1 dose .XX ASDIRECTED PRN PRN Reason: RX TO DOSE VANCO - Exam Quality Assessment: Supplemental Oxygen General: Alert, Oriented HEENT: Pupils Equal, Pupils Reactive, EOMI, Mucous Membr. Moist/[place] Neck: Supple Lungs: Decreased Breath Sounds, Rhonchi Cardiovascular: Regular Rate, Regular Rhythm GI/Abdominal Exam: Soft, Non-Tender, No Distention Skin: Warm, Dry, Intact Neurological: No New Focal Deficit Psy/Mental Status: Alert, Normal Affect, Normal Mood Sepsis Event Note - Evaluation Sepsis Screening Result: No Definite Risk - Focused Exam Vital Signs: Vital Signs Temp Pulse Resp BP Pulse Ox Pulse Ox 08/08/20 14:45 97 08/08/20 08:38 97.9 F 79 16 104/62 88 L 08/08/20 08:36 75 08/08/20 06:29 91 L - Problem List & Annotations (1) Hypoxemia SNOMED Code(s): 286961877 Code(s): R09.02 - HYPOXEMIA Status: Chronic Priority: Medium Current Visit: Yes Onset Date: ~08/04/20 (2) COPD exacerbation SNOMED Code(s): 156491632 Code(s): J44.1 - CHRONIC OBSTRUCTIVE PULMONARY DISEASE W (ACUTE) EXACERBATION Status: Acute Priority: Low Current Visit: No (3) Congestive heart failure SNOMED Code(s): 94827862 Code(s): I50.9 - HEART FAILURE, UNSPECIFIED Status: Chronic Priority: Medium Current Visit: Yes Onset Date: ~08/04/20 Qualifiers: Heart failure type: combined systolic and diastolic Heart failure chronicity: acute on chronic Qualified Code(s): I50.43 - Acute on chronic combined systolic (congestive) and diastolic (congestive) heart failure (4) Pleural effusion SNOMED Code(s): 67817134 Code(s): J90 - PLEURAL EFFUSION, NOT ELSEWHERE CLASSIFIED Status: Acute Priority: Medium Current Visit: Yes Annotation/Comment:: Left sided pleural effusion Right thoracentesis with 500 mL of taurus pleural fluid removed. (5) Cardiomegaly SNOMED Code(s): 1606510 Code(s): I51.7 - CARDIOMEGALY Status: Acute Priority: Medium Current Visit: Yes Onset Date: ~08/04/20 - Problem List Review Problem List Initiated/Reviewed/Updated: Yes - Plan Plan:: Assessment 85-year-old female discharged today from [facility] in [place] after being treated for COVID-19 presents to the emergency department with hypoxemia. Acute: COPD Exacerbation Interstitial Edema/Infiltrates * Recent COVID 19 Infection * Received IV Zosyn and Vancomycin for atypical * Repeat chest x-ray does not show obvious infiltrates or consolidation * Now off antibiotics Acute hypoxic and hypercapneic Respiratory Failure, improved * Currently on nasal cannula 5 L/min Exacerbation of CHFimproved * Worsening pleural effusions on chest x-ray; s/p thoracentesis * Repeat CXR shows much improved lungs * Has been on high flow * Holding lasix daily 2/2 hypotension * CT chest with contrast: * 1. No evidence of pulmonary emboli. * 2. Bilateral multifocal pulmonary ground glass opacities with interlobular septal thickening suggesting the "crazy paving" pattern. This pattern can be associated with acute interstitial pneumonia, adult respiratory distress syndrome, pulmonary edema, pulmonary hemorrhage, pneumonia, LVO are proteinosis, hypersensitivity pneumonitis, cryptogenic organizing pneumonia, chronic eosinophilic pneumonia, and bronchioloalveolar cell carcinoma. * Recent non-STEMI likely making heart failure worse * Albumin 1.8. This is likely also exacerbating her CHF * Procalcitonin 0.06 * Recent weight reveals a gain of 2lbs Paroxysmal Atrial fibrillation * Rate is controlled in the 70-80s * On digoxin and Metoprolol * SCDs for Stroke prophylaxis due to GI Bleed * New onset and had significant bleed on anticoagulation Normocytic Hypochromic Anemia * Hemoccult stool was positive * Hemoglobin dropped to 7.0 and given 2 units packed red blood cells yesterday. Hemoglobin 9.7 this morning. * Review of her old records shows that she had new onset atrial fibrillation and started on heparin drip. Apparently she had significant blood loss that required transfusions and reversal of heparin. She developed a large hematoma on the right flank and surgery was consulted. No indication for I&D. Elevated D-Dimer * Chest CTA- negative for PE Hypokalemiapotassium 3.1 yesterday Mild Thrombocytopenia-platelets 145 Elevated CRP Hypoalbuminemia Generalized Weakness Metabolic Encephalopathy End of Life Care * Family has elected to make her comfort measures * They want her tuned up; patient not ready to go * Converted back DNR/DNI Relative Hypotension * Likely secondary to hypertensive medication * Parameters on BP meds * PRN Midodrine TID for BP < 100/60 mmHg Plan: * Hold lisinopril, received it today, secondary to hypotension. May also need to hold metoprolol if continues to have hypotension requiring midodrine. * Replace potassium and recheck in the morning * Resume PT/OT * Continue to wean FiO2 * Encourage to use IS/FV * CODE STATUS: DNR/DNI * VTE prophylaxis with SCDs * Discharge planning in the morning. * * 08/08 Patient states she is feeling better today and wishes to be discharged. She was up in her chair with 2L O2 by nasal canula. She has a good appetite. Xray was ordered and showed a left pleural effusion. Potassium was within normal limits. Hold Lisinopril Cut Metoprolol in half Continue to wean FiO2 DNR/DNI. Plan for discharge in near future.
[2020-08-09] MEDS: Tiotropium BR/Olodaterol HCL 4 GM Inhalation Spray 2.5mcg/1 dose; 10 doses INH SCH (07:47)
[2020-08-09] MEDS: Aspirin 81 MG Tab.Chew PO SCH (08:59)
[2020-08-09] MEDS: Digoxin 125 MCG Tab PO SCH (08:59)
[2020-08-09] MEDS ORDERED: Metoprolol Succinate 25 MG Tab.ER PO SCH (09:00)
[2020-08-09] MEDS: Cholecalciferol (Vitamin D3) 25 MCG Tab PO SCH (09:07)
[2020-08-09] MEDS: Rosuvastatin 10 MG Tab PO SCH (09:07)
[2020-08-09] MEDS: Ascorbic Acid 500 MG Tab PO SCH (09:07)
[2020-08-09] MEDS: rOPINIRole 1 MG Tab PO SCH (09:09)
[2020-08-09] MEDS ORDERED: Albuterol 6.7 GM Inhaler INH SCH (10:00)
[2020-08-09] MEDS ORDERED: Furosemide 20 MG/2 ML VIAL IVPUSH ONE (10:24)
--- NOTE | 2020-08-09 12:14 | PCM.DCSUM1 ---
Discharge Summary - Hospital Course Free Text/Narrative:: patient 85 year old admitted with resp failure after covid episode with hx of copd and interstitial lung disease. suspect pneumonia with rt pleural effusion tapped and she is doing well on 1.5 liters o2 sats 90-94 . she has comorbidities of anemia, low protein and atelectasis and is clear of pneumonia. digoxin dced sec to fluctuating status. Anemia not transfused. Patient continued on iron tablets. nutrition addressed . recheck cbc and cmp in one week with nt bnp recommended. HPI Initial Comments: Admission History & Physical Patient Name: RICARDO BROWN Date of : 1935 Patient Status: Inpatient Attending Provider: Luana Canseco III Date: 07/29/20 23:56 Initialization Date: 07/29/20 23:56 H&P History of Present Illness - General Date of Service: 07/29/20 Admit Problem/Dx: Admission Diagnosis/Problem Admission Diagnosis/Problem Hypoxia - History of Present Illness Initial Comments - Free Text/Narative: 85-year-old female who was discharged today from [place] to a [facility] in [place] presents to the emergency department after arriving at [place] with a pulse ox of 62% on 4 L nasal cannula. Patient was initially diagnosed with Covid on July 15 in [place] and transferred to [place] on the for treatment. Patient was also found to have elevated troponin and diagnosed with a non-STEMI. Patient was there for 14 days and on return [facility] the [facility] she was found to be significantly hypoxemic. She was placed on a nonrebreather with no improvement and she was brought to the ER. On presentation to the emergency department patient did not appear to be in respiratory distress but had a increased respiratory rate of 18. Patient does have a history of atrial fibrillation, Hypertension, COPD, hypertension, hyperlipidemia. She is on digoxin. She does not appear to be on anticoagulation. She did have hemoglobin of 8.0 on presentation to the emergency department. - Related Data Allergies/Adverse Reactions: Allergies Allergy/AdvReac Type Severity Reaction Status Date / Time morphine Allergy Severe Vomiting Verified 07/29/20 19:41 Home Medications: Home Meds rOPINIRole [Requip] 2 mg PO BID 08/15/19 [History] Acetaminophen 650 mg PO Q6H PRN 07/29/20 [History] Anoro Ellipta 1 puff INH DAILY 07/29/20 [History] Ascorbic Acid [C-1000] 1,000 mg PO BID 07/29/20 [History] Aspirin 81 mg PO DAILY 07/29/20 [History] Cholecalciferol (Vitamin D3) [Vitamin D3] 1,000 unit PO DAILY 07/29/20 [History] Digoxin 125 mcg PO DAILY 07/29/20 [History] Metoprolol Succinate [Toprol XL] 12.5 mg PO DAILY 07/29/20 [History] Nicotine [Nicotine Patch] 21 mg TD DAILY 07/29/20 [History] atorvaSTATin [Lipitor] 40 mg PO DAILY 07/29/20 [History] lisinopriL [Lisinopril] 10 mg PO DAILY 07/29/20 [History] Nitroglycerin [Nitrostat] 0.4 mg SL ASDIRECTED PRN 07/30/20 [History] Past Medical History - Past Health History Medical/Surgical History: Denies Medical/Surgical History HEENT History: Reports: Impaired Vision, Other (See Below) Other HEENT History: wears glasses Cardiovascular History: Reports: Hypertension, Other (See Below) Other Cardiovascular History: elevated heart rate Respiratory History: Reports: Bronchitis, Recurrent, COPD, SOB Gastrointestinal History: Reports: None Genitourinary History: Reports: None [employer]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: Musculoskeletal History: Reports: Osteoarthritis Neurological History: Reports: None Endocrine/Metabolic History: Reports: None Oncologic (Cancer) History: Reports: None Dermatologic History: Reports: None - Infectious Disease History Infectious Disease History: Reports: YPT-Jradlcjotd-Sncyqtegi Ent erobacteriaceae, Measles, Shingles - Past Surgical History HEENT Surgical History: Reports: None Cardiovascular Surgical History: Reports: None Respiratory Surgical History: Reports: None GI Surgical History: Reports: Cholecystectomy, Colonoscopy, Polypectomy Female Surgical History: Reports: Hysterectomy, Salpingo-Oophorectomy Endocrine Surgical History: Reports: None Musculoskeletal Surgical History: Reports: Hip Replacement, Knee Replacement Other Musculoskeletal Surgeries/Procedures:: bilateral hip replacement, left knee replacement Social & Family History - Family History Family Medical History: No Pertinent Family History - Tobacco Use Tobacco Use Status *Q: Former Tobacco User Used Tobacco, but Quit: Yes Month/Year Tobacco Last Used: 3 yr - Caffeine Use Caffeine Use: Reports: Coffee, Soda Caffeine Use Comment: 3-4 cups a day - Recreational Drug Use Recreational Drug Use: No H&P Review of Systems - Review of Systems: Review Of Systems: Comprehensive ROS is negative, except as noted in HPI. Exam - Exam Exam: See Below - Vital Signs Vital Signs: Last Vital Signs Temp 97.8 F 07/29/20 19:46 Pulse 89 07/29/20 19:46 Resp 30 H 07/29/20 19:46 BP 100/67 07/29/20 19:46 Pulse Ox 87 L 07/29/20 19:46 Weight: 150 lb - Exam Quality Assessment: Supplemental Oxygen (Simple mask) General: Alert, Mild Distress HEENT: Conjunctiva Clear, Mucosa Moist & [place] Neck: Supple, Trachea Midline, 2 Lungs: Rales (Throughout). No: Normal Respiratory Effort (Increased respiratory rate and effort) Cardiovascular: Regular Rate, Regular Rhythm GI/Abdominal Exam: Normal Bowel Sounds, Soft, Non-Tender, No Distention Extremities: Normal Inspection, Normal Capillary Refill, Pedal Edema (2+) Peripheral Pulses: 2+: Posterior Tibial (L), Posterior Tibial (R), Dorsalis Pedis (L), Dorsalis Pedis (R) Skin: Warm, Dry, Intact Neuro Extensive - Mental Status: Alert, Oriented x3, Normal Mood/Affect Psychiatric: Alert, Normal Affect, Normal Mood - Patient Data Lab Results Last 24 hrs: Laboratory Results - last 24 hr 07/29/20 07/29/20 07/29/20 Range/Units 19:40 19:40 19:40 WBC 6.95 (3.98-10.04) K/mm3 RBC 2.78 L (3.98-5.22) M/mm3 Hgb 8.0 L (11.2-15.7) gm/dl Hct 26.6 L (34.1-44.9) % MCV 95.7 H (79.4-94.8) fl MCH 28.8 (25.6-32.2) pg MCHC 30.1 L (32.2-35.5) g/dl RDW Std Deviation 49.8 H (36.4-46.3) fL Plt Count 131 L (182-369) K/mm3 MPV 12.4 H (9.4-12.3) fl Neut % (Auto) 91.0 H (34.0-71.1) % Lymph % (Auto) 4.9 L (19.3-51.7) % [place] % (Auto) 3.9 L (4.7-12.5) % Eos % (Auto) 0.1 L (0.7-5.8) Baso % (Auto) 0.0 L (0.1-1.2) % Neut # (Auto) 6.32 H (1.56-6.13) K/mm3 Lymph # (Auto) 0.34 L (1.18-3.74) K/mm3 [place] # (Auto) 0.27 (0.24-0.36) K/mm3 Eos # (Auto) 0.01 L (0.04-0.36) K/mm3 Baso # (Auto) 0.00 L (0.01-0.08) K/mm3 Manual Slide Review Abnormal smear Puncture Site ABG pH (7.35-7.45) ABG pCO2 (35.0-45.0) mmHg ABG pO2 (80.0-100.0) mmHg ABG HCO3 (22.0-26.0) meq/L ABG O2 Saturation (96.0-97.0) % ABG Base Excess (-2-2.0) Aidan Test O2 Delivery Device Oxygen Flow Rate Sodium 139 (136-145) mEq/L Potassium 4.1 (3.5-5.1) mEq/L Chloride 105 (98-107) mEq/L Carbon Dioxide 27 (21-32) mEq/L Anion Gap 11.1 (5-15) BUN 23 H (7-18) mg/dL Creatinine 0.8 (0.55-1.02) mg/dL Est Cr Clr Drug Dosing 49.09 mL/min Estimated GFR (MDRD) > 60 (>60) mL/min BUN/Creatinine Ratio 28.8 H (14-18) Glucose 102 (83-115) mg/dL Lactic Acid (0.4-2.0) mmol/L Calcium 7.9 L (8.5-10.1) mg/dL Ferritin 682 H (8-252) ng/ml Total Bilirubin 1.4 H (0.2-1.0) mg/dL AST 54 H (15-37) U/L ALT 45 (14-59) U/L Alkaline Phosphatase 54 (46-116) U/L Lactate Dehydrogenase 303 H (81-234) U/L Troponin I 0.025 (0.00-0.056) ng/mL C-Reactive Protein 28.8 H* (<1.0) mg/dL Total Protein 5.0 L (6.4-8.2) g/dl Albumin 1.7 L (3.4-5.0) g/dl Globulin 3.3 gm/dL Albumin/Globulin Ratio 0.5 L (1-2) 07/29/20 07/29/20 Range/Units 19:40 21:25 WBC (3.98-10.04) K/mm3 RBC (3.98-5.22) M/mm3 Hgb (11.2-15.7) gm/dl Hct (34.1-44.9) % MCV (79.4-94.8) fl MCH (25.6-32.2) pg MCHC (32.2-35.5) g/dl RDW Std Deviation (36.4-46.3) fL Plt Count (182-369) K/mm3 MPV (9.4-12.3) fl Neut % (Auto) (34.0-71.1) % Lymph % (Auto) (19.3-51.7) % [place] % (Auto) (4.7-12.5) % Eos % (Auto) (0.7-5.8) Baso % (Auto) (0.1-1.2) % Neut # (Auto) (1.56-6.13) K/mm3 Lymph # (Auto) (1.18-3.74) K/mm3 [place] # (Auto) (0.24-0.36) K/mm3 Eos # (Auto) (0.04-0.36) K/mm3 Baso # (Auto) (0.01-0.08) K/mm3 Manual Slide Review Puncture Site Lt radial ABG pH 7.44 (7.35-7.45) ABG pCO2 39.7 (35.0-45.0) mmHg ABG pO2 53.0 L (80.0-100.0) mmHg ABG HCO3 26.7 H (22.0-26.0) meq/L ABG O2 Saturation 83.9 L (96.0-97.0) % ABG Base Excess 2.9 H (-2-2.0) Aidan Test Positive O2 Delivery Device Simple mask Oxygen Flow Rate 8.0 Sodium (136-145) mEq/L Potassium (3.5-5.1) mEq/L Chloride (98-107) mEq/L Carbon Dioxide (21-32) mEq/L Anion Gap (5-15) BUN (7-18) mg/dL Creatinine (0.55-1.02) mg/dL Est Cr Clr Drug Dosing mL/min Estimated GFR (MDRD) (>60) mL/min BUN/Creatinine Ratio (14-18) Glucose (83-115) mg/dL Lactic Acid 0.9 (0.4-2.0) mmol/L Calcium (8.5-10.1) mg/dL Ferritin (8-252) ng/ml Total Bilirubin (0.2-1.0) mg/dL AST (15-37) U/L ALT (14-59) U/L Alkaline Phosphatase (46-116) U/L Lactate Dehydrogenase (81-234) U/L Troponin I (0.00-0.056) ng/mL C-Reactive Protein (<1.0) mg/dL Total Protein (6.4-8.2) g/dl Albumin (3.4-5.0) g/dl Globulin gm/dL Albumin/Globulin Ratio (1-2) Result Diagrams: 07/30/20 06:20 07/29/20 19:40 Imaging Impressions Last 24 hrs: Chest x-ray: 1. Cardiomegaly with vascular congestion and bilateral pleural effusions suggesting CHF/fluid overload. 2. There are bilateral E VOR opacities in left greater than right, which are nonspecific and could be due to pulmonary edema versus pneumonia. #1 Interpretation EKG Date: 07/29/20 Time: 19:45 Rhythm: A-Fib Rate (Beats/Min): 86 [place]: Normal P-Wave: Absent QT: Prolonged (529) Sepsis Event Note - Evaluation Sepsis Screening Result: No Definite Risk - Focused Exam Vital Signs: Vital Signs Temp Pulse Resp BP Pulse Ox 07/29/20 19:46 97.8 F 89 30 H 100/67 87 L - Problem List (1) Congestive heart failure SNOMED Code(s): 93903224 ICD Code: I50.9 - HEART FAILURE, UNSPECIFIED Status: Acute Current Visit: Yes Qualifiers: Heart failure type: unspecified Heart failure chronicity: acute on chronic Qualified Code(s): I50.9 - Heart failure, unspecified (2) Hypoxemia SNOMED Code(s): 251958305 ICD Code: R09.02 - HYPOXEMIA Status: Acute Current Visit: Yes (3) Pleural effusion SNOMED Code(s): 53280450 ICD Code: J90 - PLEURAL EFFUSION, NOT ELSEWHERE CLASSIFIED Status: Acute Current Visit: Yes (4) COVID-19 virus detected SNOMED Code(s): 3273343082418552 ICD Code: U07.1 - COVID-19 Status: Acute Current Visit: No (5) Anemia SNOMED Code(s): 879443012 ICD Code: D64.9 - ANEMIA, UNSPECIFIED Status: Acute Current Visit: Yes (6) Prolonged Q-T interval on ECG SNOMED Code(s): 264900268 ICD Code: R94.31 - ABNORMAL ELECTROCARDIOGRAM [ECG] [EKG] Status: Acute Current Visit: Yes Problem List Initiated/Reviewed/Updated: Yes Orders Last 24hrs: Active Orders 24 hr Category Date Time Status Patient Status [ADT] Routine ADT 07/29/20 22:43 Active Antiembolic Devices [RC] PER UNIT ROUTINE Care 07/29/20 23:42 Ordered Bedrest Bedside Commode [RC] ASDIRECTED Care 07/29/20 23:41 Ordered EKG 12 Lead [EKG Documentation Completion] [RC] ROUTINE Care 07/29/20 19:48 Active Fernandes Catheter Insertion [Insert Urinary Catheter] [OM. Care 07/29/20 23:50 Ordered PC] Q24H Oxygen Therapy [RC] PRN Care 07/29/20 23:41 Ordered Pulse Oximetry [RC] CONTINUOUS Care 07/29/20 23:42 Ordered Urinary Catheter Assessment [RC] ASDIRECTED Care 07/29/20 23:50 Ordered VTE/DVT Education [RC] PER UNIT ROUTINE Care 07/29/20 23:41 Ordered Vital Signs [RC] Q4H Care 07/29/20 23:41 Ordered Heart Healthy Diet [DIET] Diet 07/30/20 Breakfast Ordered CXR [Chest 1V Frontal] [CR] Stat Exams 07/29/20 21:08 Taken CBC WITH AUTO DIFF [HEME] AM Lab 07/30/20 05:11 Ordered D Dimer [D-DIMER QUANTITATIVE] [COAG] Stat Lab 07/29/20 23:36 Ordered DIGOXIN [CHEM] AM Lab 07/30/20 05:11 Ordered OCCULT BLOOD SCREEN [OP] Routine Lab 07/29/20 23:49 Ordered PRO B-TYPE NATRIUR PEPT,BNPPRO [CHEM] Stat Lab 07/29/20 23:36 Ordered PROCALCITONIN [REF] Routine Lab 07/29/20 23:37 Ordered Acetaminophen [TylenoL] Med 07/29/20 23:41 Ordered 650 mg PO Q4H PRN Anoro Ellipta Med 07/30/20 09:00 Ordered 1 puff INH DAILY Digoxin [Lanoxin] Med 07/30/20 09:00 Ordered 125 mcg PO DAILY Metoprolol Succinate [Toprol XL] Med 07/30/20 09:00 Ordered 12.5 mg PO DAILY Nicotine [Habitrol] Med 07/30/20 09:00 Ordered 21 mg TRDERM DAILY Ondansetron [Zofran] Med 07/29/20 23:41 Ordered 4 mg IV Q4H PRN Remove Patch Med 07/30/20 09:00 Active 1 ea TRDERM DAILY Sodium Chloride 0.9% [Normal Saline] 1,000 ml Med 07/29/20 21:15 Active IV ASDIRECTED atorvaSTATin Med 07/30/20 09:00 Ordered 40 mg PO DAILY lisinopriL [Prinivil] Med 07/30/20 09:00 Ordered 10 mg PO DAILY Sequential Compression Device [OM.PC] Per Unit Routine Oth 07/29/20 23:42 Ordered Resuscitation Status Routine Resus Stat 07/29/20 23:41 Ordered Medication Orders Acetaminophen (Tylenol) 650 mg PO Q4H PRN PRN Reason: Pain (Mild 1-3)/fever Digoxin (Lanoxin) 125 mcg PO DAILY EMELINA Sodium Chloride (Normal Saline) 1,000 mls @ 500 mls/hr IV ASDIRECTED EMELINA Last Admin: 07/29/20 21:20 Dose: 500 mls/hr Documented by: JEMAL Lisinopril (Prinivil) 10 mg PO DAILY EMELINA Metoprolol Succinate (Toprol Xl) 12.5 mg PO DAILY EMELINA Miscellaneous Information (Remove Patch) 1 ea TRDERM DAILY EMELINA Nicotine (Habitrol) 21 mg TRDERM DAILY [facility] Non-Formulary Medication (Atorvastatin) 40 mg PO DAILY EMELINA Non-Formulary Medication (Anoro Ellipta) 1 puff INH DAILY [facility] Ondansetron HCl (Zofran) 4 mg IV Q4H PRN PRN Reason: Nausea/Vomiting Assessment/Plan Comment:: Assessment 85-year-old female discharged today from [place] in [place] after being treated for COVID-19 presents to the emergency department with hypoxemia. Exacerbation of CHF Non-STEMI * Patient has significant vascular congestion and bilateral pleural effusions on chest x-ray. It appears that this is most likely the cause of her hypoxemia although continued lung disease secondary to COVID-19 or even pneumonia is possible to be contributing to her hypoxemia. * In the emergency department she did not keep her nasal cannula or her simple mask on her face and had repeated desaturations. * She was switched to high flow nasal cannula with good results. * She also had elevated troponin and was felt to have non-STEMI or type II NH. * Troponin here was normal at 0.025. Atrial fibrillation * She is rate controlled on metoprolol and digoxin * She is not on any anticoagulation * Hemoglobin is low at 8.0 which is significantly lower than when she was in the emergency department On the and . Hemoglobin on the was 14.3 * Review of what records we have from [place] does not mention anemia nor a GI bleed. Also patient was only sent home on aspirin for anticoagulation COPD * On Anoro * This will increase her risk for complications secondary to COVID-19 Anemia * Significant drop in hemoglobin over the last 2 weeks from 14-8 * Unknown if this is secondary to blood draws, bone marrow suppression secondary to acute illness, or GI bleed * Patient is not on an anticoagulant other than aspirin for her A. fib. Plan * Admit to medical floor on telemetry and continuous pulse ox * FiO2 to keep SPO2 between 88 and 94%. Currently on high flow nasal cannula. * Follow hemoglobin * Hold on anticoagulation at this time until we trend hemoglobin. * Get stool for occult blood * Lasix 20 mg IV now and as needed depending on improvement in symptoms * No benefit from COVID-19 treatment at this time. * Antibiotics do not appear to be warranted at this time * Monitor labs and temperature. * Recheck chest x-ray in a couple days. * Get proBNP * Digoxin level in the morning * I spoke with her [id number] in regards to her prognosis. She has a very poor prognosis with her underlying medical conditions and her severe hypoxemia. She recently agreed to a DNR and DNI. I asked her directly and she reiterated that she did not want to be intubated or resuscitated. * CODE STATUS DNR/DNI * VTE prophylaxis with compression devices. Reevaluate tomorrow. - Mortality Measure Prognosis:: Poor Diagnosis: Stroke: No - Discharge Data Discharge Date: 08/09/20 Discharge Disposition: DC/Tfer to [employer] [employer] Condition: Fair - Referral to Home Health Primary Care Physician: Wali Walton MD - Discharge Diagnosis/Problem(s) (1) COVID-19 virus detected SNOMED Code(s): 7187950737592161 ICD Code: U07.1 - COVID-19 Status: Acute Priority: Low Current Visit: Yes Onset Date: ~07/17/20 Problem Details: recovered from covid infection and on no treatments other than for copd and chf (2) Cardiomegaly SNOMED Code(s): 0100554 ICD Code: I51.7 - CARDIOMEGALY Status: Chronic Priority: Medium Current Visit: Yes Onset Date: ~08/04/20 Problem Details: chf controlled with mild bradicardia so digoxin dced. cont beta maria de jesus and lasix low dose. (3) Congestive heart failure SNOMED Code(s): 24853298 ICD Code: I50.9 - HEART FAILURE, UNSPECIFIED Status: Chronic Priority: Medium Current Visit: Yes Onset Date: ~08/04/20 Qualifiers: Heart failure type: combined systolic and diastolic Heart failure chronicity: acute on chronic Qualified Code(s): I50.43 - Acute on chronic combined systolic (congestive) and diastolic (congestive) heart failure (4) Hypoxemia SNOMED Code(s): 684557704 ICD Code: R09.02 - HYPOXEMIA Status: Chronic Priority: Medium Current Visit: Yes Onset Date: ~08/04/20 Problem Details: copd and atelectasis/ high risk of recurrance given weakness and comobidities and age (5) COPD (chronic obstructive pulmonary disease) SNOMED Code(s): 45371546 ICD Code: J44.9 - CHRONIC OBSTRUCTIVE PULMONARY DISEASE, UNSPECIFIED Status: Acute Priority: Medium Current Visit: No Onset Date: ~08/09/20 Qualifiers: COPD type: COPD with acute lower respiratory infection Qualified Code(s): J44.0 - Chronic obstructive pulmonary disease with (acute) lower respiratory infection (6) Right lower lobe pneumonia SNOMED Code(s): 614981176 ICD Code: J18.1 - LOBAR PNEUMONIA, UNSPECIFIED ORGANISM Status: Acute Priority: Medium Current Visit: No Onset Date: ~08/04/20 Problem Details: treated with antibiotics and sputums negative. chronic interstitial findings and atelectasis Qualifiers: Pneumonia type: due to unspecified organism Qualified Code(s): J18.9 - Pneumonia, unspecified organism (7) Elevated d-dimer SNOMED Code(s): 248830702 ICD Code: R79.89 - OTHER SPECIFIED ABNORMAL FINDINGS OF BLOOD CHEMISTRY Status: Acute Priority: Medium Current Visit: Yes Onset Date: ~08/06/20 Problem Details: malnutrition severe. high protien diet started (8) Anemia SNOMED Code(s): 825591251 ICD Code: D64.9 - ANEMIA, UNSPECIFIED Status: Acute Priority: Medium Current Visit: Yes Onset Date: ~08/09/20 Problem Details: hgn stable at 9.8 Qualifiers: Anemia type: iron deficiency Iron deficiency anemia type: other iron deficiency Qualified Code(s): D50.8 - Other iron deficiency anemias (9) Hypoproteinemia SNOMED Code(s): 7855362 ICD Code: E77.8 - OTHER DISORDERS OF GLYCOPROTEIN METABOLISM Status: Acute Priority: Medium Current Visit: Yes Onset Date: ~08/06/20 Problem Details: total protien 5.5//// alb 1.9 urine protien loss and malnutrition - Patient Summary/Data Consults: Consultations 08/03/20 10:41 OT Evaluation and Treatment [CONS] Routine PT Evaluation and Treatment [CONS] Routine - Patient Instructions Diet: Regular Diet as Tolerated (protein supplementation) Activity: As Tolerated Notify Provider of: Fever - Discharge Plan *PRESCRIPTION DRUG MONITORING PROGRAM REVIEWED*: No *COPY OF PRESCRIPTION DRUG MONITORING REPORT IN PATIENT ADONAY: No Home Medications: Home Meds rOPINIRole [Requip] 2 mg PO BID 08/15/19 [History] Acetaminophen 650 mg PO Q6H PRN 07/29/20 [History] Anoro Ellipta 1 puff INH DAILY 07/29/20 [History] Ascorbic Acid [C-1000] 1,000 mg PO BID 07/29/20 [History] Cholecalciferol (Vitamin D3) [Vitamin D3] 1,000 unit PO DAILY 07/29/20 [History] Metoprolol Succinate [Toprol XL] 12.5 mg PO DAILY 07/29/20 [History] atorvaSTATin [Lipitor] 40 mg PO DAILY 07/29/20 [History] lisinopriL [Lisinopril] 10 mg PO DAILY 07/29/20 [History] Nitroglycerin [Nitrostat] 0.4 mg SL ASDIRECTED PRN 07/30/20 [History] Acetaminophen [Tylenol] 650 mg PO Q4H PRN tablet 08/09/20 [Rx] Albuterol [Proventil HFA] 2 puff INH BID inhaler 08/09/20 [Rx] Oxygen Therapy Mode: Nasal Cannula Oxygen Flow Rate (L/min): 1.5 Patient Handouts: COVID-19 Frequently Asked Questions, Sepsis, Diagnosis, Adult, Heart Failure, Diagnosis, Prevent the Spread of COVID-19 if You Are Sick - [facility] Referrals: Wali Walton MD [Primary Care Provider] - 08/15/20 1:00 pm (Please follow up with Dr. Walton on August 15 at 1:00.) - Discharge Summary/Plan Comment DC Time >30 min.: No - General Info Date of Service: 08/09/20 Admission Dx/Problem (Free Text: Admission Diagnosis/Problem Admission Diagnosis/Problem Hypoxia Subjective Update: Patient states she is feeling better. She is on nasal cannula O2, but continues to be fatigued. She has a non productive cough. Xray shows left pleural effusion. Denies shortness of breath. 08/09 patient 85 year old admitted with resp failure after covid episode with hx of copd and interstitial lung disease. suspect pneumonia with rt pleural effusion tapped and she is doing well on 1.5 liters o2 sats 90-94 . she has comorbidities of anemia, low protein and atelectasis and is clear of pneumonia. digoxin dced sec to fluctuating status. Anemia not transfused. Patient continued on iron tablets. nutrition addressed . recheck cbc and cmp in one week with nt bnp recommended. BOH Functional Status: Reports: Pain Controlled - Review of Systems General: Reports: Weakness, Fatigue HEENT: Reports: No Symptoms Pulmonary: Reports: Shortness of Breath, Cough Cardiovascular: Reports: No Symptoms Gastrointestinal: Reports: No Symptoms Musculoskeletal: Reports: No Symptoms Skin: Reports: No Symptoms Neurological: Reports: No Symptoms Psychiatric: Reports: No Symptoms - Patient Data Vitals - Most Recent: Last Vital Signs Temp 36.4 C 08/09/20 09:00 Pulse 77 08/09/20 09:08 Resp 26 H 08/09/20 08:34 BP 120/75 08/09/20 09:08 Pulse Ox 88 L 08/09/20 08:34 Weight - Most Recent: 58.786 kg I&O - Last 24 hours: Intake & Output 08/08/20 08/09/20 08/09/20 22:59 06:59 14:59 Intake Total 1160 200 120 Output Total 300 Balance 1160 -100 120 JOANN Results - Last 24 hrs: Microbiology 08/04/20 19:00 Acid Fast Bacilli Smear - Final Pleural Fluid 08/04/20 19:00 Gram Stain - Final Pleural Fluid Body Fluid Culture - Preliminary NO GROWTH AFTER 4 DAYS Med Orders - Current: Current Medications Acetaminophen (Tylenol) 650 mg PO Q4H PRN PRN Reason: Pain (Mild 1-3)/fever Last Admin: 08/08/20 21:49 Dose: 650 mg Documented by: Albuterol (Proventil Hfa) 0 gm INH BID [facility] Last Admin: 08/09/20 10:29 Dose: Not Given Documented by: Ascorbic Acid (Vitamin C) 1,000 mg PO BID [facility] Last Admin: 08/09/20 09:07 Dose: 1,000 mg Documented by: Aspirin (Aspirin) 81 mg PO DAILY [facility] Last Admin: 08/09/20 08:59 Dose: 81 mg Documented by: Cholecalciferol (Vitamin D3) 25 mcg PO DAILY [facility] Last Admin: 08/09/20 09:07 Dose: 25 mcg Documented by: Digoxin (Lanoxin) 125 mcg PO DAILY [facility] Last Admin: 08/09/20 08:59 Dose: 125 mcg Documented by: Lorazepam (Ativan) 0.25 mg IVPUSH Q4H PRN PRN Reason: comfort measures Metoprolol Succinate (Toprol Xl) 6.25 mg PO DAILY [facility] Last Admin: 08/09/20 09:08 Dose: 6.25 mg Documented by: Midodrine (Midodrine) 5 mg PO TID PRN PRN Reason: Hypotension Last Admin: 08/07/20 15:36 Dose: 5 mg Documented by: Nitroglycerin (Nitrostat) 0.4 mg SL ASDIRECTED PRN PRN Reason: Chest Pain Ondansetron HCl (Zofran) 4 mg IV Q4H PRN PRN Reason: Nausea/Vomiting Ropinirole HCl (Requip) 2 mg PO BID [facility] Last Admin: 08/09/20 09:09 Dose: 2 mg Documented by: Rosuvastatin Calcium (Crestor) 10 mg PO DAILY [facility] Last Admin: 08/09/20 09:07 Dose: 10 mg Documented by: Sodium Chloride (Saline Flush) 10 ml FLUSH ONETIME PRN PRN Reason: Keep Vein Open Last Admin: 07/31/20 09:37 Dose: 10 ml Documented by: Discontinued Medications Acetaminophen (Tylenol) 650 mg PO Q6H PRN PRN Reason: Pain Enoxaparin Sodium (Lovenox) 40 mg SUBCUT DAILY [facility] Last Admin: 07/30/20 18:05 Dose: Not Given Documented by: Enoxaparin Sodium (Lovenox) 40 mg SUBCUT DAILY@1800 [facility] Last Admin: 07/30/20 18:05 Dose: 40 mg Documented by: Furosemide (Lasix) 20 mg IVPUSH ONETIME ONE Stop: 07/30/20 00:16 Last Admin: 07/30/20 00:39 Dose: 20 mg Documented by: Furosemide (Lasix) 20 mg IVPUSH ONETIME ONE Stop: 07/30/20 11:30 Last Admin: 07/30/20 12:13 Dose: 20 mg Documented by: Furosemide (Lasix) 20 mg IVPUSH ONETIME ONE Stop: 07/30/20 19:52 Last Admin: 07/30/20 21:42 Dose: 20 mg Documented by: Furosemide (Lasix) 20 mg IVPUSH Q6H [facility] Stop: 07/31/20 17:01 Last Admin: 07/31/20 11:20 Dose: 20 mg Documented by: Furosemide (Lasix) 20 mg IVPUSH Q6H [facility] Last Admin: 08/04/20 18:47 Dose: Not Given Documented by: Furosemide (Lasix) 20 mg IVPUSH ONETIME ONE Stop: 08/09/20 10:25 Last Admin: 08/09/20 11:18 Dose: 20 mg Documented by: Hydromorphone HCl (Dilaudid) Confirm Administered Dose 0.5 mg .ROUTE .STK-MED ONE Stop: 08/04/20 18:09 Last Admin: 08/04/20 18:25 Dose: 0.5 mg Documented by: Hydromorphone HCl (Dilaudid) 0.5 mg IVPUSH ONETIME ONE Stop: 08/04/20 18:09 Last Admin: 08/04/20 19:43 Dose: Not Given Documented by: Sodium Chloride (Normal Saline) 1,000 mls @ 500 mls/hr IV ASDIRECTED [facility] Last Admin: 07/29/20 21:20 Dose: 500 mls/hr Documented by: Sodium Chloride (Normal Saline) 1,000 mls @ 75 mls/hr IV ASDIRECTED [facility] Last Admin: 07/31/20 11:26 Dose: 75 mls/hr Documented by: Albumin Human (Flexbumin 25%) 12.5 gm in 50 mls @ 100 mls/hr IV Q6H [facility] Stop: 07/31/20 17:29 Last Admin: 07/31/20 16:10 Dose: 100 mls/hr Documented by: Piperacillin Sod/Tazobactam (Sod 4.5 gm/ Sodium Chloride) 100 mls @ 25 mls/hr IV Q8H [facility] Last Admin: 08/01/20 06:03 Dose: 25 mls/hr Documented by: Piperacillin Sod/Tazobactam (Sod 4.5 gm/ Sodium Chloride) 100 mls @ 200 mls/hr IV ONETIME ONE Stop: 07/31/20 11:18 Last Admin: 07/31/20 11:14 Dose: 200 mls/hr Documented by: Vancomycin HCl 1 gm/ Sodium (Chloride) 250 mls @ 250 mls/hr IV Q24H [facility] Last Admin: 07/31/20 13:05 Dose: 250 mls/hr Documented by: Furosemide 100 mg/ Sodium (Chloride) 100 mls @ 4 mls/hr IV TITRATE [facility]; Protocol Last Titration: 08/01/20 17:52 Dose: Infused Documented by: Piperacillin Sod/Tazobactam (Sod 4.5 gm/ Sodium Chloride) 100 mls @ 25 mls/hr IV Q8H [facility] Stop: 08/05/20 10:00 Last Admin: 08/04/20 12:55 Dose: 25 mls/hr Documented by: Vancomycin HCl 1 gm/ Sodium (Chloride) 250 mls @ 250 mls/hr IV Q18H [facility] Last Admin: 08/02/20 01:10 Dose: 250 mls/hr Documented by: Potassium Chloride 10 meq/ (Premix) 100 mls @ 100 mls/hr IV Q1H [facility] Stop: 08/01/20 13:29 Last Admin: 08/01/20 12:03 Dose: 100 mls/hr Documented by: Sodium Chloride (Normal Saline) 250 mls @ 25 mls/hr IV ASDIRECTED [facility] Vancomycin HCl 1 gm/Vancomycin HCl 250 mg/ Sodium Chloride 250 mls @ 250 mls/hr IV Q18H [facility] Last Admin: 08/02/20 21:26 Dose: 250 mls/hr Documented by: Vancomycin HCl 1 gm/Vancomycin HCl 250 mg/ Sodium Chloride 250 mls @ 166.667 mls/hr IV Q18H [facility] Stop: 08/05/20 05:00 Last Admin: 08/04/20 08:46 Dose: 166.667 mls/hr Documented by: Sodium Chloride (Normal Saline) 500 mls @ 250 mls/hr IV .BOLUS ONE Stop: 08/06/20 11:50 Last Admin: 08/06/20 10:24 Dose: 250 mls/hr Documented by: Iopamidol (Isovue-370 (76%)) 100 ml IVPUSH ONETIME ONE Stop: 07/31/20 08:27 Last Admin: 07/31/20 09:37 Dose: 100 ml Documented by: Lidocaine HCl (Xylocaine 1%) Confirm Administered Dose 10 ml .ROUTE .STK-MED ONE Stop: 08/04/20 18:06 Last Admin: 08/04/20 19:31 Dose: 10 ml Documented by: Lidocaine HCl (Xylocaine 1%) 10 ml INJECT ONETIME ONE Stop: 08/04/20 18:06 Last Admin: 08/04/20 19:43 Dose: Not Given Documented by: Lisinopril (Prinivil) 10 mg PO DAILY [facility] Last Admin: 08/07/20 08:59 Dose: 10 mg Documented by: Metoprolol Succinate (Toprol Xl) 12.5 mg PO DAILY [facility] Last Admin: 08/08/20 08:38 Dose: 12.5 mg Documented by: Miscellaneous Information (Remove Patch) 1 ea TRDERM DAILY [facility] Last Admin: 08/03/20 09:39 Dose: Not Given Documented by: Nicotine (Habitrol) 21 mg TRDERM DAILY [facility] Last Admin: 08/03/20 09:34 Dose: Not Given Documented by: Potassium Chloride (Klor-Con M20) 40 meq PO ONETIME ONE Stop: 08/01/20 17:01 Potassium Chloride (Klor-Con M20) 40 meq PO ONETIME ONE Stop: 08/01/20 21:01 Last Admin: 08/01/20 21:54 Dose: 40 meq Documented by: Potassium Chloride (Klor-Con M20) 20 meq PO ONETIME ONE Stop: 08/01/20 21:52 Last Admin: 08/01/20 21:55 Dose: 20 meq Documented by: Potassium Chloride (Klor-Con M20) 40 meq PO ONETIME ONE Stop: 08/02/20 21:28 Last Admin: 08/02/20 22:17 Dose: 40 meq Documented by: Potassium Chloride (Klor-Con M20) 40 meq PO ONETIME ONE Stop: 08/07/20 19:34 Last Admin: 08/07/20 20:38 Dose: 40 meq Documented by: Vancomycin HCl (Pharmacy To Dose - Vancomycin) 1 dose .XX ASDIRECTED PRN PRN Reason: RX TO DOSE VANCO - Exam Quality Assessment: Reports: Supplemental Oxygen General: Reports: Alert, Oriented HEENT: Reports: Pupils Equal, Pupils Reactive, EOMI, Mucous Membr. Moist/[place] Neck: Reports: Supple Lungs: Reports: Normal Respiratory Effort, Decreased Breath Sounds (bilateral ), Rhonchi Cardiovascular: Reports: Regular Rate, Regular Rhythm GI/Abdominal Exam: Normal Bowel Sounds, Soft, Non-Tender Back Exam: Reports: Normal Inspection, Full Range of Motion Extremities: Normal Inspection, Normal Range of Motion, Non-Tender, No Pedal Edema, Normal Capillary Refill Skin: Reports: Warm, Dry, Intact Neurological: Reports: No New Focal Deficit Psy/Mental Status: Reports: Alert, Normal Affect, Normal Mood Discharge Operative/Procedures - Procedures Performed Thoracentesis Indication: pleural effusion (Right pleural tap without pneumothorax. Greater than 400 mL removed. )
== END 2020-08-09 13:43 | DRG 291 ==
LOC: JD.ED 19:25 → JD.MS 22:43 → JD.ICU 07-31 14:29 → JD.MS 08-03 10:39
PROVIDERS: ADMIT Family Medicine; ATTEND Family Medicine
PROC: 5A0945A Assistance with Respiratory Ventilation, 24-96 Consecutive Hours, High Flow/Velocity Cannula (ICD-10-PCS; principal; 2020-07-29)
PROC: 30233N1 Transfusion of Nonautologous Red Blood Cells into Peripheral Vein, Percutaneous Approach (ICD-10-PCS; 2020-07-29)
PROC: 02HV33Z Insertion of Infusion Device into Superior Vena Cava, Percutaneous Approach (ICD-10-PCS; 2020-08-01)
PROC: 0W993ZZ Drainage of Right Pleural Cavity, Percutaneous Approach (ICD-10-PCS; 2020-08-04)
DX: U07.1 COVID-19 (principal); I50.9 Heart failure, unspecified; R09.02 Hypoxemia; I11.0 Hypertensive heart disease with heart failure; J18.9 Pneumonia, unspecified organism; J96.21 Acute and chronic respiratory failure with hypoxia; J96.22 Acute and chronic respiratory failure with hypercapnia; Z79.82 Long term (current) use of aspirin; G93.41 Metabolic encephalopathy; Z88.6 Allergy status to analgesic agent; R29.6 Repeated falls; J44.0 Chronic obstructive pulmonary disease with (acute) lower respiratory infection; J44.1 Chronic obstructive pulmonary disease with (acute) exacerbation; D62 Acute posthemorrhagic anemia; J98.11 Atelectasis; J84.9 Interstitial pulmonary disease, unspecified; J91.8 Pleural effusion in other conditions classified elsewhere; I50.43 Acute on chronic combined systolic (congestive) and diastolic (congestive) heart failure; Z51.5 Encounter for palliative care; Z66 Do not resuscitate; R94.31 Abnormal electrocardiogram [ECG] [EKG]; R79.89 Other specified abnormal findings of blood chemistry; D50.8 Other iron deficiency anemias; E77.8 Other disorders of glycoprotein metabolism; H54.7 Unspecified visual loss; M19.90 Unspecified osteoarthritis, unspecified site; I48.0 Paroxysmal atrial fibrillation; I95.9 Hypotension, unspecified; E87.6 Hypokalemia; D69.6 Thrombocytopenia, unspecified; Z96.643 Presence of artificial hip joint, bilateral; Z96.652 Presence of left artificial knee joint; Z88.5 Allergy status to narcotic agent; Z79.899 Other long term (current) drug therapy; Z90.710 Acquired absence of both cervix and uterus; Z87.891 Personal history of nicotine dependence
CPT/HCPCS: 36415; 36600; 71045; 80053; 82728; 82803; 83605; 83615; 84484; 85025; 86140; 93005; 99285; J7030; 36430; 51702; 51798; 71046; 71046-26; 71275; 71275-26; 76942; 80048; 80162; 80202; 82270; 82945; 83735; 83880; 83986; 84100; 84145; 84155; 84157; 85379; 85610; 85730; 86850; 86900; 86901; 86922; 87040; 87070; 87205; 87220; 87641; 88112; 88305; 89050; 93010; 94640; 94667; 94668; 94761; 97110-GO; 97110-GP; 97116-GP; 97162-GP; 97165-GO; 97530-GO; 97530-GP; 97535-GO; A9270-GY; J1170; J1650; J1940; J2001; J2543; J3370; J3480; J7050; P9016; P9047; Q9967